=== PATIENT | female | born 1950 | race Caucasian/White ===

== ENCOUNTER 2017-05-04 22:29 | Inpatient (IN) ==
[2017-05-04] MEDS ORDERED: Ondansetron 4 MG/2 ML VIAL IVP ONE (22:44)
--- NOTE | 2017-05-04 22:56 | Emergency Department Note ---
Disposition Clinical Impression: Fall Qualifiers: Encounter type: initial encounter Qualified Code(s): W19.XXXA - Unspecified fall, initial encounter Syncope Qualifiers: Syncope type: unspecified Qualified Code(s): R55 - Syncope and collapse Head trauma Qualifiers: Encounter type: initial encounter Qualified Code(s): S09.90XA - Unspecified injury of head, initial encounter Disposition: Admitted As Inpatient Condition: Good Fall HPI - General Chief Complaint: ED Fall Stated Complaint: syncope,fall Source: patient, EMS Nursing Notes Reviewed: Yes Vital Signs Reviewed: Yes - History of Present Illness HPI Narrative: 67-year-old female past history of hypertension, hyperlipidemia, COPD with an episode of syncope. Patient states that she was walking in the bathroom, stood up, turned around and fell and hit her head. Patient denies any pain anywhere else at this time. Patient reports no episodes of palpitations, chest pain, pressure, tightness. She reports some lightheadedness. Patient denies any nausea, vomiting. She does report a mild headache. This fall was unwitnessed. - Related Data Home Medications Medication Instructions Recorded Confirmed Amitriptyline [Elavil] 10 mg PO HS 05/05/17 05/05/17 Aspirin [Lo-Dose Aspirin EC] 81 mg PO DAILY 05/05/17 05/05/17 Atorvastatin [Lipitor] 40 mg PO HS 05/05/17 05/05/17 Budesonide/Formoterol 160/4.5 2 puff IH BIDR PRN 05/05/17 05/05/17 [Symbicort 160/4.5] Calcium Carbonate [Calcium] 600 mg PO DAILY 05/05/17 05/05/17 Cholecalciferol (Vitamin D3) 3,000 unit PO DAILY 05/05/17 05/05/17 [Vitamin D] Citalopram [CeleXA] 60 mg PO DAILY 05/05/17 05/05/17 Clindamycin [Cleocin] 150 mg PO BID 05/05/17 05/05/17 Cyclobenzaprine [Flexeril] 10 mg PO TID PRN 05/05/17 05/05/17 Diphenoxylate/Atropine [Lomotil 1 each PO QID PRN 05/05/17 05/05/17 2.5 mg/0.025 mg] Esomeprazole Magnesium [Nexium] 40 mg PO BID 05/05/17 05/05/17 Fludrocortisone Acetate [Florinef] 0.1 mg PO DAILY 05/05/17 05/05/17 Fluticasone Propionate [Flovent 50 mcg IH DAILY 05/05/17 05/05/17 Diskus] Glatiramer Acetate [Copaxone] 20 mg SQ DAILY 05/05/17 05/05/17 HYDROcodone/Acet 10/325 mg [Ayden 1 tab PO Q6HR PRN 05/05/17 05/05/17 10-325 mg] LORazepam [Ativan] 1 mg PO QID PRN 05/05/17 05/05/17 Lactobacillus Combination No.8 2 tab PO DAILY 05/05/17 05/05/17 [Adult Probiotic] Methyl Salicylate 1 appl TP DAILY PRN 05/05/17 05/05/17 Metoprolol Succinate 50 mg PO DAILY 05/05/17 05/05/17 Multivitamin [Multivitamins] 1 each PO DAILY 05/05/17 05/05/17 Potassium Chloride [K-Tab ER] 20 meq PO DAILY 05/05/17 05/05/17 PrednisoLONE Acetate 1% Opth 1 drop RIGHT EYE BID 05/05/17 05/05/17 [PredFORTE 1%] Pregabalin [Lyrica] 200 mg PO BID 05/05/17 05/05/17 No.52/Iron/FA/Dha 1 each PO DAILY 05/05/17 05/05/17 [Store Host-Pnv-Dha Softgel] Promethazine [Phenergan] 25 mg PO Q6HR PRN 05/05/17 05/05/17 Spironolactone [Aldactone] 50 mg PO DAILY 05/05/17 05/05/17 Topiramate [Topamax] 25 mg PO BID 05/05/17 05/05/17 Vitamin E (Dl,Tocopheryl Acet) 800 unit PO DAILY 05/05/17 05/05/17 [Vitamin E] Zolpidem [Ambien] 5 mg PO HS PRN 05/05/17 05/05/17 hydrOXYzine pamoate [Hydroxyzine 25 mg PO HS 05/05/17 05/05/17 Pamoate] Allergies Allergy/AdvReac Type Severity Reaction Status Date / Time guaifenesin [From Entex LA] Allergy Rash Verified 07/27/15 12:38 Penicillins [PCN] Allergy Rash Verified 07/27/15 12:38 phenylephrine [From Entex LA] Allergy Rash Verified 07/27/15 12:38 phenylpropanolamine Allergy Rash Verified 07/27/15 12:38 [From Entex LA] Sulfa (Sulfonamide Allergy Rash Verified 07/27/15 12:38 Antibiotics) Verapamil [From Calan] Allergy Rash Verified 07/27/15 12:38 tzanidine Allergy Rash Uncoded 01/14/15 16:27 All systems ED: reviewed and negative except as stated. Review of Systems: As Per HPI Constitutional: Denies: fever, chills Cardiovascular: Reports: syncope. Denies: chest pain, palpitations Respiratory: Denies: cough, dyspnea Gastrointestinal: Denies: abdominal pain, nausea, vomiting Genitourinary: Denies: urgency, dysuria, frequency Neurological: Reports: headache. Denies: weakness, numbness, paresthesias Fall PMH - Past Medical History Medical history: Reports: COPD, hyperlipidemia, hypertension, other Surgical history: Reports: non-contributory - Social History Smoking Status: Never smoker Alcohol use: Reports: none Drug use: Reports: none Physical Exam CONSTITUTIONAL: Alert and oriented X3, well-nourished, appears to be mildly uncomfortable. HEAD: Normocephalic; atraumatic. EYES: PERRL, no scleral icterus. NOSE: The nose is normal in appearance without rhinorrhea RESP: Normal chest excursion with respiration; breath sounds clear and equal bilaterally; no wheezes, rhonchi, or rales CARD: Regular rhythm, without murmurs, rub or gallop ABD: Non-distended; non-tender, soft,without rigidity, rebound or guarding SKIN: Normal for age and race; warm and dry; no apparent lesions - General Limitations: no limitations General appearance: alert Course Vital Signs Temperature 97.7 F 05/04/17 22:31 Pulse Rate 72 05/04/17 22:31 Respiratory Rate 18 05/04/17 22:31 Blood Pressure 190/118 05/04/17 22:31 O2 Sat by Pulse Oximetry 95 05/04/17 22:31 Temperature 97.8 F 05/05/17 02:36 Pulse Rate 78 05/05/17 02:36 Respiratory Rate 18 05/05/17 02:36 Blood Pressure 177/100 05/05/17 02:36 O2 Sat by Pulse Oximetry 95 05/05/17 02:36 Oxygen Delivery Oxygen Delivery Room Air Fall - MDM Narrative Medical decision making narrative: This 67-year-old female presents to emergency department after having an episode of syncope at home. We obtained CT scan of the head and neck and this did not reveal any acute abnormality. Chest x-ray was also normal. EKG did not reveal any ischemic changes. Troponin was negative. Urinalysis did not reveal any evidence of urinary tract infection. CBC did not reveal any evidence of leukocytosis or anemia. At this time, I think that most of the patient's symptoms may be secondary to the head trauma as she does have a right posterior scalp hematoma. Patient wanted to be admitted to the hospital. At this time, I think this is a reasonable plan as the patient had a syncopal episode at home and do not want her being a further risk of injury by going home. Patient was given analgesia for her headache. I discussed this plan of admission with the hospitalist and he agreed to accept her. Patient was hemodynamically stable and not in any acute distress at time of admission to the hospital. Chest X-Ray 05/04/17 22:43 IMPRESSION: No acute abnormality detected. D/ / Bossman Kingston MD / Bossman Kingston MD Interpreting Provider: Bossman Kingston MD Head CT 05/04/17 22:43 IMPRESSION: No acute intracranial abnormality. Right posterior scalp hematoma. D/ / Lamin Burton MD / Lamin Burton MD Interpreting Provider: Lamin Burton MD Cervical Spine CT 05/04/17 22:44 IMPRESSION: Degenerative changes as above with no evidence of an acute injury. D/ / Lamin Burton MD / Lamin Burton MD Interpreting Provider: Lamin Burton MD Vital Signs Temperature 97.7 F 05/04/17 22:31 Pulse Rate 72 05/04/17 22:31 Respiratory Rate 18 05/04/17 22:31 Blood Pressure 190/118 05/04/17 22:31 O2 Sat by Pulse Oximetry 95 05/04/17 22:31 Temperature 97.8 F 05/05/17 02:36 Pulse Rate 78 05/05/17 02:36 Respiratory Rate 18 05/05/17 02:36 Blood Pressure 177/100 05/05/17 02:36 O2 Sat by Pulse Oximetry 95 05/05/17 02:36 Oxygen Delivery Oxygen Delivery Room Air - Lab Data Result diagrams: 05/04/17 22:48 05/04/17 22:48 Lab Results 05/04/17 05/04/17 05/04/17 Range/Units 22:48 22:48 22:48 WBC 5.0 (4.3-11.1) K/mcL RBC 4.28 (3.82-4.97) M/mcL Hgb 12.2 (11.5-15.4) g/dL Hct 37.2 (35.3-44.9) % MCV 86.9 (83.0-100.0) fL MCH 28.5 (28.0-33.3) pg MCHC 32.8 (31.6-35.5) g/dL RDW 13.2 (11.5-14.5) % Plt Count 178 (140-400) K/mcL MPV 11.3 (9.4-12.4) fL Immature Gran % 1.2 (0-4) % Seg Neutrophils % 52.2 % Lymphocytes % 27.4 % Monocytes % 11.5 % Eosinophils % 6.9 % Basophils % 0.8 % Neutrophils # 2.6 (1.6-8.9) K/mcL Lymphocytes # 1.4 (0.6-4.6) K/mcL Monocytes # 0.6 (0.0-1.3) K/mcL Eosinophils # 0.4 (0.0-0.6) K/mcL Basophils # 0.0 (0.0-0.2) K/mcL PT 10.9 (9.4-12.1) Seconds INR 1.0 APTT 29.3 (26.0-36.0) Seconds Sodium 134 L (136-145) mEq/L Potassium 4.6 H (3.5-4.5) mEq/L Chloride 99 (98-109) mEq/L Carbon Dioxide 20 (19-29) mEq/L BUN 15 (7-20) mg/dL Creatinine 1.02 (0.57-1.11) mg/dL Est GFR ( Amer) > 60 (> 60) Est GFR (Non-Af Amer) 54 L (> 60) BUN/Creatinine Ratio 15 (6-26) Glucose 158 H (70-99) mg/dL Calculated Osmolality 282 (280-300) Lactic Acid (0.5-2.2) mmol/L Calcium 9.0 (8.6-10.8) mg/dL Total Bilirubin 1.0 (0.2-1.2) mg/dL Direct Bilirubin 0.5 (0.0-0.5) mg/dL Indirect Bilirubin 0.5 (0.0-1.2) mg/dL AST 44 H (5-34) Units/L ALT 59 H (0-55) Units/L Alkaline Phosphatase 201 H (38-126) Units/L Troponin I (0-0.03) ng/mL B-Natriuretic Peptide (0-100) pg/mL Serum Total Protein 7.3 (6.0-8.3) g/dL Albumin 3.1 L (3.5-5.0) g/dL Globulin 4.2 H (2.4-3.5) g/dL Albumin/Globulin Ratio 0.7 L (1.1-2.2) TSH 1.503 (0.350-4.840) mcIU/mL Urine Color (Yellow) Urine Clarity (Clear) Urine pH (5.0-8.0) pH Units Ur Specific [place] (1.010-1.025) Urine Protein (Neg-Trace) mg/dL Urine Glucose (UA) (Normal) mg/dL Urine Ketones (Negative) mg/dL Urine Blood (Negative) Urine Nitrite (Negative) Urine Bilirubin (Negative) Urine Urobilinogen (Normal) mg/dL Ur Leukocyte Esterase (Negative) Ur Culture Indicated? (NO) 05/04/17 05/04/17 05/04/17 Range/Units 22:48 22:48 22:48 WBC (4.3-11.1) K/mcL RBC (3.82-4.97) M/mcL Hgb (11.5-15.4) g/dL Hct (35.3-44.9) % MCV (83.0-100.0) fL MCH (28.0-33.3) pg MCHC (31.6-35.5) g/dL RDW (11.5-14.5) % Plt Count (140-400) K/mcL MPV (9.4-12.4) fL Immature Gran % (0-4) % Seg Neutrophils % % Lymphocytes % % Monocytes % % Eosinophils % % Basophils % % Neutrophils # (1.6-8.9) K/mcL Lymphocytes # (0.6-4.6) K/mcL Monocytes # (0.0-1.3) K/mcL Eosinophils # (0.0-0.6) K/mcL Basophils # (0.0-0.2) K/mcL PT (9.4-12.1) Seconds INR APTT (26.0-36.0) Seconds Sodium (136-145) mEq/L Potassium (3.5-4.5) mEq/L Chloride (98-109) mEq/L Carbon Dioxide (19-29) mEq/L BUN (7-20) mg/dL Creatinine (0.57-1.11) mg/dL Est GFR ( Amer) (> 60) Est GFR (Non-Af Amer) (> 60) BUN/Creatinine Ratio (6-26) Glucose (70-99) mg/dL Calculated Osmolality (280-300) Lactic Acid 1.1 (0.5-2.2) mmol/L Calcium (8.6-10.8) mg/dL Total Bilirubin (0.2-1.2) mg/dL Direct Bilirubin (0.0-0.5) mg/dL Indirect Bilirubin (0.0-1.2) mg/dL AST (5-34) Units/L ALT (0-55) Units/L Alkaline Phosphatase (38-126) Units/L Troponin I 0.00 (0-0.03) ng/mL B-Natriuretic Peptide 166 H (0-100) pg/mL Serum Total Protein (6.0-8.3) g/dL Albumin (3.5-5.0) g/dL Globulin (2.4-3.5) g/dL Albumin/Globulin Ratio (1.1-2.2) TSH (0.350-4.840) mcIU/mL Urine Color (Yellow) Urine Clarity (Clear) Urine pH (5.0-8.0) pH Units Ur Specific [place] (1.010-1.025) Urine Protein (Neg-Trace) mg/dL Urine Glucose (UA) (Normal) mg/dL Urine Ketones (Negative) mg/dL Urine Blood (Negative) Urine Nitrite (Negative) Urine Bilirubin (Negative) Urine Urobilinogen (Normal) mg/dL Ur Leukocyte Esterase (Negative) Ur Culture Indicated? (NO) 05/04/17 Range/Units 23:23 WBC (4.3-11.1) K/mcL RBC (3.82-4.97) M/mcL Hgb (11.5-15.4) g/dL Hct (35.3-44.9) % MCV (83.0-100.0) fL MCH (28.0-33.3) pg MCHC (31.6-35.5) g/dL RDW (11.5-14.5) % Plt Count (140-400) K/mcL MPV (9.4-12.4) fL Immature Gran % (0-4) % Seg Neutrophils % % Lymphocytes % % Monocytes % % Eosinophils % % Basophils % % Neutrophils # (1.6-8.9) K/mcL Lymphocytes # (0.6-4.6) K/mcL Monocytes # (0.0-1.3) K/mcL Eosinophils # (0.0-0.6) K/mcL Basophils # (0.0-0.2) K/mcL PT (9.4-12.1) Seconds INR APTT (26.0-36.0) Seconds Sodium (136-145) mEq/L Potassium (3.5-4.5) mEq/L Chloride (98-109) mEq/L Carbon Dioxide (19-29) mEq/L BUN (7-20) mg/dL Creatinine (0.57-1.11) mg/dL Est GFR ( Amer) (> 60) Est GFR (Non-Af Amer) (> 60) BUN/Creatinine Ratio (6-26) Glucose (70-99) mg/dL Calculated Osmolality (280-300) Lactic Acid (0.5-2.2) mmol/L Calcium (8.6-10.8) mg/dL Total Bilirubin (0.2-1.2) mg/dL Direct Bilirubin (0.0-0.5) mg/dL Indirect Bilirubin (0.0-1.2) mg/dL AST (5-34) Units/L ALT (0-55) Units/L Alkaline Phosphatase (38-126) Units/L Troponin I (0-0.03) ng/mL B-Natriuretic Peptide (0-100) pg/mL Serum Total Protein (6.0-8.3) g/dL Albumin (3.5-5.0) g/dL Globulin (2.4-3.5) g/dL Albumin/Globulin Ratio (1.1-2.2) TSH (0.350-4.840) mcIU/mL Urine Color Yellow (Yellow) Urine Clarity Clear (Clear) Urine pH 6.0 (5.0-8.0) pH Units Ur Specific [place] 1.010 (1.010-1.025) Urine Protein Negative (Neg-Trace) mg/dL Urine Glucose (UA) Normal (Normal) mg/dL Urine Ketones Negative (Negative) mg/dL Urine Blood Negative (Negative) Urine Nitrite Negative (Negative) Urine Bilirubin Negative (Negative) Urine Urobilinogen Normal (Normal) mg/dL Ur Leukocyte Esterase Negative (Negative) Ur Culture Indicated? NO (NO) - EKG Data EKG attestation: Yes I reviewed and interpreted this EKG. EKG results narrative: 22:56 Ventricle rate 6 bpm, TN 184 ms, QS baptism 80 ms, QT 371 ms, QTC 414 ms, no masses. Sinus rhythm with a ventricular rate of 86 bpm. There is no evidence of any ischemic ST changes noted on this electrocardiogram. This is compared to previous study performed on January 21, 2014. Attestation Statement - Attestation Attestation: I, Stevan Akhtar MD, personally evaluated this patient and discussed their management with the resident physician. I reviewed the resident's note and agree with the documented findings, medical decision making, and plan of care. 67-year-old female presented to the emergency department for a syncopal episode with a fall. Patient states she became dizzy and lightheaded and developed tunnel vision and then just fell into the bathtub. She does not remember tripping over anything. She did hit her head. She complains of headache and some pain in her neck. No other significant injuries from the fall. On examination patient is a well-developed obese elderly female in no acute distress. She is alert and oriented 3. There is no cyanosis or diaphoresis. Head is atraumatic. Neck is supple with some mild diffuse tenderness. No tenderness directly over the cervical spine and no palpable bony step-off. Chest is nontender to palpation. Breath sounds are clear and equal bilaterally. Heart regular rate and rhythm. Abdomen is soft and nontender with normal bowel sounds. No gross focal neurological deficits. Labs reviewed. Chest x-ray negative. CT of the head and cervical spine negative. EKG shows a normal sinus rhythm with no acute changes or arrhythmia or ectopy. The hospitalist, Dr. Griffiths, was consulted and accepted admission of the patient.
[2017-05-04 22:59] LABS: Basophils % 0.8 %; Eosinophils # 0.4 K/mcL (0.0-0.6); Eosinophils % 6.9 %; Hematocrit 37.2 % (35.3-44.9); Hemoglobin 12.2 g/dL (11.5-15.4); Immature Granulocytes % 1.2 % (0-4); Lymphocytes # 1.4 K/mcL (0.6-4.6); Lymphocytes % 27.4 %; Mean Corpuscular HGB Conc 32.8 g/dL (31.6-35.5); Mean Corpuscular Hemoglobin 28.5 pg (28.0-33.3); Mean Corpuscular Volume 86.9 fL (83.0-100.0); Mean Platelet Volume 11.3 fL (9.4-12.4); Monocytes # 0.6 K/mcL (0.0-1.3); Monocytes % 11.5 %; Neutrophils # 2.6 K/mcL (1.6-8.9); Platelet Count 178 K/mcL (140-400); Red Blood Count 4.28 M/mcL (3.82-4.97); Red Cell Distribution Width 13.2 % (11.5-14.5); Segmented Neutrophils % 52.2 %
[2017-05-04 23:05] LABS: Prothrombin Time 10.9 Seconds (9.4-12.1)
[2017-05-04 23:07] LABS: Activated Partial Thrombo Time 29.3 Seconds (26.0-36.0)
[2017-05-04 23:12] LABS: Alanine Aminotransferase 59 Units/L (0-55); Albumin 3.1 g/dL (3.5-5.0); Albumin/Globulin Ratio 0.7 (1.1-2.2); Alkaline Phosphatase 201 Units/L (38-126); Aspartate Amino Transferase 44 Units/L (5-34); BUN/Creatinine Ratio 15 (6-26); Bilirubin,Direct 0.5 mg/dL (0.0-0.5); Bilirubin,Indirect 0.5 mg/dL (0.0-1.2); Blood Urea Nitrogen 15 mg/dL (7-20); Carbon Dioxide 20 mEq/L (19-29); Chloride 99 mEq/L (98-109); Globulin 4.2 g/dL (2.4-3.5); Glucose 158 mg/dL (70-99); Osmolality,Calculated 282 (280-300); Sodium 134 mEq/L (136-145); Total Protein 7.3 g/dL (6.0-8.3); eGFR For African Americans > 60 (> 60); eGFR For Non-African Americans 54 (> 60)
[2017-05-04 23:13] LABS: Potassium 4.6 mEq/L (3.5-4.5)
[2017-05-04 23:32] LABS: Thyroid Stimulating Hormone 1.503 mcIU/mL (0.350-4.840)
[2017-05-04 23:35] LABS: Bilirubin,Urine Negative (Negative); Blood,Urine Negative (Negative); Clarity,Urine Clear (Clear); Color,Urine Yellow (Yellow); Glucose,Urine (UA) Normal (Normal); Ketones,Urine Negative (Negative); Leukocyte Esterase,Urine Negative (Negative); Nitrite,Urine Negative (Negative); Protein,Urine Negative (Neg-Trace); Urobilinogen,Urine Normal (Normal)
[2017-05-05] MEDS ORDERED: *HR* HYDROcodone/Acet 10/325 mg TABLET PO ONE (01:45)
[2017-05-05] MEDS ORDERED: Budesonide/Formoterol 160/4.5 MDI IH PRN (04:22)
[2017-05-05] MEDS ORDERED: Acetaminophen 325 MG TABLET PO PRN (04:27)
[2017-05-05] MEDS ORDERED: Naloxone 0.4 MG/ML INJ IVP PRN (04:27)
--- NOTE | 2017-05-05 04:35 | Internal Med History&Physical ---
Date of Encounter: 05/05/17 Time of Encounter: 04:15 Assessment and Plan (1) Syncope Current visit: Yes Status: Acute Syncope, unclear etiology - with injury to the back of the head Continue Aspirin, Lipitor, IV fluids, supportive care CT head - no acute intracranial abnormality Chest x-ray - no acute process CT cervical spine - no acute fracture, chronic degenerative changes EKG - sinus rhythm with no acute ST-T changes Troponin - 0.00 BNP - 166 Cardiac telemetry, pulse ox, Labs in a.m., monitor closely Qualifiers: Syncope type: unspecified Qualified Code(s): R55 - Syncope and collapse (2) Multiple sclerosis Current visit: Yes Status: Chronic Multiple sclerosis, stable - no flareup Continue home dose of Copaxone (3) Essential hypertension Current visit: Yes Status: Chronic Essential hypertension, uncontrolled, monitor Continue home dose of Toprol-XL, Aldactone Unclear as to why patient is on Florinef (4) COPD (chronic obstructive pulmonary disease) Current visit: Yes Status: Chronic COPD, stable - not an exacerbation Continue Symbicort, O2 via NC Qualifiers: COPD type: unspecified COPD Qualified Code(s): J44.9 - Chronic obstructive pulmonary disease, unspecified (5) Depression Current visit: Yes Status: Chronic Qualifiers: Depression Type: major depressive disorder Major depression recurrence: recurrent Active/Remission status: currently active Psychotic features: without psychotic features Qualified Code(s): F33.2 - Major depressive disorder, recurrent severe without psychotic features (6) DVT prophylaxis Current visit: Yes Status: Acute Heparin subcutaneous Internal Medicine - H&P: HPI Chief complaint: Syncope Admitted From: Emergency Dept Plans for Post Hospital Care: Home History of present illness: Ms. Aranda is a 67 year old female with past medical history of COPD, hyperlipidemia, hypertension, depression, anxiety, rheumatoid arthritis and multiple sclerosis. Patient presents to the ED for syncope and injury to head. Examined in the room. Patient is awake and alert. Not in any distress. Able to provide all history. No family members at bedside. Patient states around 9 PM this evening, she had an episode of syncope. Patient states she was in the bathroom and she felt dizzy and lightheaded. She seems lost her balance and fell into the bathtub. Patient did injure the back of her head. She does have a posterior scalp hematoma. Patient is unclear as to how she fell. She is not sure if she tripped or if she just passed out. She denies chest pain or shortness of breath. Denies palpitations or abdominal pain or vomiting or diarrhea. No fever. Patient states she was in the bathtub for a few minutes and struggle to herself out. Patient then decided to come to the ED. At this time patient's only complaint is a headache, which she attributes to the fall. No aggravating or alleviating factors. No other associated symptoms. No other acute complaints. Initial workup in the ED is negative. CT of the head is negative for any acute intracranial abnormality, there is a right posterior scalp hematoma. Chest x- ray and CT of the cervical spine are both negative. Patient will need echocardiogram and carotid Doppler. Patient has been explained about her condition and plan of care in detail. She understood and agreed. No unanswered questions. CODE STATUS full code. Past Med Surg Social Fam HX - Past Medical History Medical history: arthritis, COPD, hyperlipidemia, hypertension, RA, other - Past Surgical History Surgical History: appendectomy, hysterectomy - Social History Smoking Status: Never smoker Smokeless Tobacco Status: No Alcohol use: none Drug use: none - Family History Mother Age: 91 Living Status: Still Living Father Living Status: Age at : 72 Cause of : cancer, heart trouble Hx Family Cardiac Disorders: Yes Hx Family Respiratory Disorders: Yes Hx Family Cancer: Yes Internal Medicine - H&P: Meds Amitriptyline [Elavil] 10 mg PO HS 05/05/17 [History] Aspirin [Lo-Dose Aspirin EC] 81 mg PO DAILY 05/05/17 [History] Atorvastatin [Lipitor] 40 mg PO HS 05/05/17 [History] Budesonide/Formoterol 160/4.5 [Symbicort 160/4.5] 2 puff IH BIDR PRN 05/05/17 [ History] Calcium Carbonate [Calcium] 600 mg PO DAILY 05/05/17 [History] Cholecalciferol (Vitamin D3) [Vitamin D] 3,000 unit PO DAILY 05/05/17 [History] Citalopram [CeleXA] 60 mg PO DAILY 05/05/17 [History] Clindamycin [Cleocin] 150 mg PO BID 05/05/17 [History] Cyclobenzaprine [Flexeril] 10 mg PO TID PRN 05/05/17 [History] Diphenoxylate/Atropine [Lomotil 2.5 mg/0.025 mg] 1 each PO QID PRN 05/05/17 [ History] Esomeprazole Magnesium [Nexium] 40 mg PO BID 05/05/17 [History] Fludrocortisone Acetate [Florinef] 0.1 mg PO DAILY 05/05/17 [History] Fluticasone Propionate [Flovent Diskus] 50 mcg IH DAILY 05/05/17 [History] Glatiramer Acetate [Copaxone] 20 mg SQ DAILY 05/05/17 [History] HYDROcodone/Acet 10/325 mg [Beecher 10-325 mg] 1 tab PO Q6HR PRN 05/05/17 [History ] LORazepam [Ativan] 1 mg PO QID PRN 05/05/17 [History] Lactobacillus Combination No.8 [Adult Probiotic] 2 tab PO DAILY 05/05/17 [ History] Methyl Salicylate 1 appl TP DAILY PRN 05/05/17 [History] Metoprolol Succinate 50 mg PO DAILY 05/05/17 [History] Multivitamin [Multivitamins] 1 each PO DAILY 05/05/17 [History] Potassium Chloride [K-Tab ER] 20 meq PO DAILY 05/05/17 [History] PrednisoLONE Acetate 1% Opth [PredFORTE 1%] 1 drop RIGHT EYE BID 05/05/17 [ History] Pregabalin [Lyrica] 200 mg PO BID 05/05/17 [History] No.52/Iron/FA/Dha [Processing Clerk-Pnv-Dha Softgel] 1 each PO DAILY 05/05/17 [ History] Promethazine [Phenergan] 25 mg PO Q6HR PRN 05/05/17 [History] Spironolactone [Aldactone] 50 mg PO DAILY 05/05/17 [History] Topiramate [Topamax] 25 mg PO BID 05/05/17 [History] Vitamin E (Dl,Tocopheryl Acet) [Vitamin E] 800 unit PO DAILY 05/05/17 [History] Zolpidem [Ambien] 5 mg PO HS PRN 05/05/17 [History] hydrOXYzine pamoate [Hydroxyzine Pamoate] 25 mg PO HS 05/05/17 [History] 3 Allergy/AdvReac Type Severity Reaction Status Date / Time guaifenesin [From Entex LA] Allergy Rash Verified 07/27/15 12:38 Penicillins [PCN] Allergy Rash Verified 07/27/15 12:38 phenylephrine [From Entex LA] Allergy Rash Verified 07/27/15 12:38 phenylpropanolamine Allergy Rash Verified 07/27/15 12:38 [From Entex LA] Sulfa (Sulfonamide Allergy Rash Verified 07/27/15 12:38 Antibiotics) Verapamil [From Calan] Allergy Rash Verified 07/27/15 12:38 tzanidine Allergy Rash Uncoded 01/14/15 16:27 All Systems PM: A 10-system review of systems was performed and is negative for pertinent findings except as documented above in the HPI. - Constitutional Constitutional: fatigue, weakness, no fever(s) - EENT Eyes: no blurry vision - Cardiovascular Cardiovascular ROS IM: lightheadedness, syncope, no chest pain, no diaphoresis, no dyspnea, no dyspnea on exertion, no edema, no orthopnea, no palpitations - Respiratory Respiratory: no cough, no dyspnea, no dyspnea on exertion, no wheezing, no chest congestion - Gastrointestinal Gastrointestinal: no abdominal pain, no bloating, no cramping, no diarrhea, no hematemesis, no hematochezia, no nausea, no vomiting - Genitourinary Genitourinary: no dysuria - Neurological Neurological ROS: dizziness, no abnormal gait, no abnormal speech, no confusion , no focal weakness, no loss of vision, no numbness, no tingling - Constitutional Vitals: Temp Pulse Resp BP Pulse Ox 97.8 F 78 18 177/100 95 05/05/17 02:36 05/05/17 02:36 05/05/17 02:36 05/05/17 02:36 05/05/17 02:36 General appearance: Present: cooperative, A&O X 3, morbidly obese, pleasant, no acute distress, answers questions appropriately - Head Additional comments: Posterior scalp hematoma secondary to fall - Eye Eye exam: Present: EOMI - ENT ENT exam: Present: mucous membranes moist - Respiratory Respiratory exam: Present: CTAB. Absent: accessory muscle use, rales, respiratory distress, rhonchi, wheezes, tachypnea - Cardiovascular Cardiovascular exam: Present: RRR, +S1, +S2 - GI/Abdominal GI/Abdominal exam: Present: soft (Obese). Absent: distended, firm, guarding, tenderness - Extremities Exam Extremities exam: Present: pedal edema (Bilateral 1+), radial pulses palpable and symmetrical. Absent: calf tenderness, cyanotic - Neurological Exam Neurological exam: Present: alert, CN II-XII intact, oriented X3, no focal deficits. Absent: facial droop, speech deficit Internal Med - H&P Results - Labs CBC & Chem 7: 05/05/17 04:57 05/04/17 22:48
[2017-05-05] MEDS ORDERED: Pregabalin 50 MG CAPSULE PO ONE (04:36)
[2017-05-05 05:08] LABS: Basophils # 0.1 K/mcL (0.0-0.2); Basophils % 1.1 %; Eosinophils # 0.3 K/mcL (0.0-0.6); Hematocrit 36.2 % (35.3-44.9); Hemoglobin 12.3 g/dL (11.5-15.4); Immature Granulocytes % 0.8 % (0-4); Lymphocytes % 29.9 %; Mean Corpuscular Hemoglobin 29.4 pg (28.0-33.3); Mean Corpuscular Volume 86.4 fL (83.0-100.0); Mean Platelet Volume 10.9 fL (9.4-12.4); Monocytes # 0.9 K/mcL (0.0-1.3); Neutrophils # 3.3 K/mcL (1.6-8.9); Platelet Count 188 K/mcL (140-400); Red Blood Count 4.19 M/mcL (3.82-4.97); Red Cell Distribution Width 13.1 % (11.5-14.5); Segmented Neutrophils % 49.2 %
[2017-05-05 05:24] LABS: BUN/Creatinine Ratio 16 (6-26); Blood Urea Nitrogen 13 mg/dL (7-20); Calcium 8.9 mg/dL (8.6-10.8); Carbon Dioxide 20 mEq/L (19-29); Chloride 102 mEq/L (98-109); Glucose 121 mg/dL (70-99); Magnesium 1.2 mg/dL (1.6-2.6); Osmolality,Calculated 281 (280-300); Potassium 4.6 mEq/L (3.5-4.5); Sodium 135 mEq/L (136-145); eGFR For African Americans > 60 (> 60); eGFR For Non-African Americans > 60 (> 60)
[2017-05-05] MEDS: 0.9 % Sodium Chloride 1,000 ML IVC SCH (05:28)
[2017-05-05] MEDS: *HR* Heparin 5,000 UNIT/ML VIAL SQ SCH ×3 (05:46→20:43)
[2017-05-05] MEDS: Cholecalciferol (D-3) 1,000 UNIT TABLET PO SCH (08:29)
[2017-05-05] MEDS: Spironolactone 25 MG TABLET PO SCH (08:29)
[2017-05-05] MEDS: Multivit/Ca/Min/Fe/FA 1 TAB TABLET PO SCH (08:29)
[2017-05-05] MEDS: Topiramate 25 MG TABLET PO SCH ×2 (08:31→20:43)
[2017-05-05] MEDS: Prenatal Vit/FA 1 EACH TABLET PO SCH (08:31)
[2017-05-05] MEDS: Lactobacillus 1 EACH CAP.SPRINK PO SCH (08:31)
[2017-05-05] MEDS: Metoprolol XL (24 HR) Succ 50 MG TAB.ER.24H PO SCH (08:31)
[2017-05-05] MEDS: Aspirin Enteric Coated 81 MG Tablet PO SCH (08:31)
[2017-05-05] MEDS: GLATIRAMER ACETATE 20 MG SQ SCH (08:34)
[2017-05-05] MEDS: PrednisoLONE Acetate 1% Opth 5 ML BOTTLE RIGHT EYE SCH ×2 (08:34→20:44)
[2017-05-05] MEDS: (Flovent Diskus] 50 MCG) IH SCH (08:34)
[2017-05-05] MEDS ORDERED: Budesonide/Formoterol 160/4.5 MDI IH SCH (10:00)
[2017-05-05] MEDS: Ondansetron 4 MG/2 ML VIAL IVP PRN ×2 (13:09→23:13)
[2017-05-05] MEDS ORDERED: *HR* LORazepam 1 MG TABLET PO PRN (15:06)
[2017-05-05] MEDS: *HR* Morphine 2 MG/ML SYRINGE IVP PRN (15:28)
[2017-05-05] MEDS: Fluticasone Propionate Nasal 50 MCG/SPRAY BOTTLE NS SCH (15:29)
--- NOTE | 2017-05-05 19:23 | Internal Med Progress Note ---
Date of Encounter: 05/05/17 Time of Encounter: 08:25 - Assessment and plan (1) Morbid obesity Current Visit: Yes Status: Acute Assessment and plan: Patient with BMI greater than 45. Chronic. Encouraged lifestyle changes. (2) Fall Current Visit: Yes Status: Acute Assessment and plan: She reports fall at home. She is unsure if it is a mechanical fall or due to syncope. She states she was walking in her bathroom and fell backwards and her top striking her back on the edge of the tub hitting her head on the wall. She does have a small hematoma left occiput. There is no bleeding. She denies any loss of consciousness. Head CT is negative, C-spine negative for any acute injuries. Echocardiogram shows preserved EF with mild AR, mild MR, mild TR, all wall segments with normal motion. Patient states that sometimes when she is out about she uses a cane. She is not using any assistive devices in the home. Physical therapy and occupational therapy consultations pending. Chest X-Ray 05/04/17 22:43 IMPRESSION: No acute abnormality detected. D/ / Bossman Kingston MD / Bossman Kingston MD Interpreting Provider: Bossman Kingston MD Head CT 05/04/17 22:43 IMPRESSION: No acute intracranial abnormality. Right posterior scalp hematoma. D/ / Lamin Burton MD / Lamin Burton MD Interpreting Provider: Lamin Burton MD Cervical Spine CT 05/04/17 22:44 IMPRESSION: Degenerative changes as above with no evidence of an acute injury. D/ / Lamin Burton MD / Lamin Burton MD Interpreting Provider: Lamin Burton MD Echocardiogram 05/05/17 04:26 Impressions: LVEF 60%. Mild left ventricular diastolic dysfunction. Normal right ventricular structure and function. Mild aortic regurgitation. Mild mitral regurgitation. Mild tricuspid regurgitation. No pulmonary hypertension. Left Ventricular Wall Motion: Rest Echo Findings All wall segments showed normal motion. Findings: Study Quality * Technically adequate exam. ECG Findings * Normal sinus rhythm. Left Ventricle * Normal LV chamber size, wall thickness and function. * LVEF 60%. * Mild left ventricular diastolic dysfunction. Right Ventricle * Normal right ventricular structure and function. Left Atrium * Normal left atrial size. Right Atrium * Normal right atrial size. Aortic Valve * Trileaflet aortic valve. * No aortic stenosis. * Mild aortic regurgitation. Mitral Valve * Normal mitral valve structure. * No mitral stenosis. * Mild mitral regurgitation. Tricuspid Valve * Tricuspid valve not well visualized. * Mild tricuspid regurgitation. * Estimated RA pressure is 3 mmHg. * Estimated RVSP is 31 mmHg. * No pulmonary hypertension. Pulmonic Valve * Pulmonic valve is not well visualized. * No pulmonic stenosis. * No pulmonic regurgitation. Pulmonary Artery * Pulmonary artery not well visualized. Pericardium * There is no pericardial effusion present. Aorta * Normally sized aortic root. Interatrial Septum * Interatrial septum not well evaluated. IVC * Normal IVC dimensions and inspiratory collapse. Qualifiers: Encounter type: initial encounter Qualified Code(s): W19.XXXA - Unspecified fall, initial encounter (3) Syncope Current Visit: Yes Status: Acute Assessment and plan: Plan as above. Echocardiogram as above. Carotids show nonstenotic plaque bilaterally. Qualifiers: Syncope type: unspecified Qualified Code(s): R55 - Syncope and collapse (4) Head trauma Current Visit: Yes Status: Acute Assessment and plan: Plan as above. Qualifiers: Encounter type: initial encounter Qualified Code(s): S09.90XA - Unspecified injury of head, initial encounter (5) Essential hypertension Current Visit: Yes Status: Chronic Assessment and plan: Blood pressures been well controlled and the patient sitting. Continue home medications. Continue to monitor vital signs. (6) COPD (chronic obstructive pulmonary disease) Current Visit: Yes Status: Chronic Assessment and plan: No exacerbation. Lungs are clear and diminished throughout. Patient is not requiring supplement oxygen. Sats above 92%. She is not tachypneic. She denies productive cough or any cough above baseline. Continue home medications. Chest x-ray is negative. Qualifiers: COPD type: unspecified COPD Qualified Code(s): J44.9 - Chronic obstructive pulmonary disease, unspecified (7) Multiple sclerosis Current Visit: Yes Status: Chronic Assessment and plan: Patient denies flare at this time. She will continue her home dose of Glatopa. She states that she follows at the MS clinic at [facility]. (8) DVT prophylaxis Current Visit: Yes Status: Acute Assessment and plan: Heparin subcutaneous. - Time Spent With Patient less than 15 minutes - Subjective Interval history: She was seen and assessed at bedside at 8:25 AM. She is alert, awake, oriented and pleasant. She reports that she lives alone with her mother. She was walking to her restroom when she fell. She is unsure if it was a mechanical fall or due to a dysrhythmia or other problem. She states that she landed in her bathtub and was attempted to being on the wall for her mother to hear her. Her mother did not hear her and she eventually got herself out of the bathtub alone. She reports that her back is sore from hitting the edge of the bathtub. She denies any loss of consciousness and denies headache from head injury. She denies dizziness or blurred vision, chest pain or shortness of breath, she denies abdominal pain nausea or vomiting. She denies fever or chills. At the time I saw her we are waiting on further testing. Patient will stay overnight for continued monitoring and most likely be discharged in the morning. - Constitutional Vitals: Temp Pulse Resp BP Pulse Ox 98.1 F 78 16 114/72 91 05/05/17 19:11 05/05/17 19:11 05/05/17 19:11 05/05/17 19:11 05/05/17 19:11 General appearance: Present: cooperative, A&O X 3, morbidly obese, pleasant, no acute distress, answers questions appropriately - Head Head exam: Present: atraumatic, normal inspection, normocephalic - Eye Eye exam: Present: normal appearance, conjuntiva pink, sclera anicteric. Absent : periorbital swelling, periorbital tenderness - Neck Neck exam general surgery: Present: normal inspection, supple, trachea midline. Absent: lymphadenopathy, tenderness - Respiratory Respiratory exam: Present: CTAB. Absent: accessory muscle use, chest wall tenderness, prolonged expiratory phase, rales, rhonchi, wheezes - Cardiovascular Cardiovascular exam: Present: RRR, +S1, +S2. Absent: diastolic murmur, gallop, rubs, systolic murmur - GI/Abdominal GI/Abdominal exam: Present: normal bowel sounds, soft, no peritoneal signs. Absent: distended, tenderness - Extremities Exam Extremities exam: Present: normal capillary refill, normal inspection, warm, radial pulses palpable and symmetrical. Absent: calf tenderness, cyanotic, pedal edema, tenderness - Neurological Exam Neurological exam: Present: alert, oriented X3, no focal deficits. Absent: altered, facial droop, speech deficit - Skin Skin exam: Present: dry, intact, normal color, warm. Absent: rash Internal Medicine: Result - Labs CBC & Chem 7: 05/05/17 04:57 05/05/17 04:57 Labs: Cardiac Enzymes 05/05/17 Range/Units 16:12 Troponin I 0.00 (0-0.03) ng/mL - ABG Interpretation ABG results: PT/INR, D-dimer PT 10.9 Seconds (9.4-12.1) 05/04/17 22:48 Consult Discharge Plan - Plan Referrals: Owen Reyes Jr, MD [Primary Care Provider] - 05/15/17 11:00 am
[2017-05-05] MEDS: *HR* HYDROcodone/Acet 10/325 mg TABLET PO PRN (20:42)
[2017-05-05] MEDS: Pregabalin 50 MG CAPSULE PO SCH (20:43)
[2017-05-05] MEDS: hydrOXYzine pamoate 25 MG CAPSULE PO SCH (20:43)
[2017-05-06] MEDS: *HR* Morphine 2 MG/ML SYRINGE IVP PRN (03:43)
[2017-05-06 05:56] LABS: Basophils # 0.1 K/mcL (0.0-0.2); Eosinophils # 0.3 K/mcL (0.0-0.6); Eosinophils % 4.8 %; Hematocrit 34.6 % (35.3-44.9); Hemoglobin 11.2 g/dL (11.5-15.4); Immature Granulocytes % 1.7 % (0-4); Lymphocytes # 2.5 K/mcL (0.6-4.6); Lymphocytes % 41.8 %; Mean Corpuscular HGB Conc 32.4 g/dL (31.6-35.5); Mean Corpuscular Hemoglobin 28.5 pg (28.0-33.3); Mean Platelet Volume 10.8 fL (9.4-12.4); Monocytes # 0.8 K/mcL (0.0-1.3); Monocytes % 13.7 %; Neutrophils # 2.2 K/mcL (1.6-8.9); Platelet Count 173 K/mcL (140-400); Red Blood Count 3.93 M/mcL (3.82-4.97); Red Cell Distribution Width 13.3 % (11.5-14.5)
[2017-05-06 06:07] LABS: BUN/Creatinine Ratio 13 (6-26); Blood Urea Nitrogen 10 mg/dL (7-20); Calcium 8.7 mg/dL (8.6-10.8); Carbon Dioxide 26 mEq/L (19-29); Chloride 104 mEq/L (98-109); Glucose 111 mg/dL (70-99); Osmolality,Calculated 286 (280-300); Potassium 4.2 mEq/L (3.5-4.5); Sodium 138 mEq/L (136-145); eGFR For African Americans > 60 (> 60); eGFR For Non-African Americans > 60 (> 60)
[2017-05-06] MEDS: *HR* Heparin 5,000 UNIT/ML VIAL SQ SCH ×3 (06:41→21:12)
[2017-05-06] MEDS ORDERED: Ketorolac 30 MG/ML VIAL IVP ONE (08:48)
[2017-05-06] MEDS ORDERED: Ondansetron 4 MG/2 ML VIAL IVP ONE (08:48)
[2017-05-06] MEDS: 0.9 % Sodium Chloride 1,000 ML IVC SCH (09:12)
[2017-05-06] MEDS: Pregabalin 50 MG CAPSULE PO SCH ×2 (09:20→21:12)
[2017-05-06] MEDS: hydrOXYzine pamoate 25 MG CAPSULE PO SCH ×3 (09:20→21:12)
[2017-05-06] MEDS: Lactobacillus 1 EACH CAP.SPRINK PO SCH (09:21)
[2017-05-06] MEDS: Prenatal Vit/FA 1 EACH TABLET PO SCH (09:21)
[2017-05-06] MEDS: Multivit/Ca/Min/Fe/FA 1 TAB TABLET PO SCH (09:21)
[2017-05-06] MEDS: Spironolactone 25 MG TABLET PO SCH (09:21)
[2017-05-06] MEDS: Metoprolol XL (24 HR) Succ 50 MG TAB.ER.24H PO SCH (09:22)
[2017-05-06] MEDS: Topiramate 25 MG TABLET PO SCH ×2 (09:22→21:12)
[2017-05-06] MEDS: Aspirin Enteric Coated 81 MG Tablet PO SCH (09:22)
[2017-05-06] MEDS: Fluticasone Propionate Nasal 50 MCG/SPRAY BOTTLE NS SCH (09:23)
[2017-05-06] MEDS: Cholecalciferol (D-3) 1,000 UNIT TABLET PO SCH (09:23)
[2017-05-06] MEDS: (Flovent Diskus] 50 MCG) IH SCH (09:29)
[2017-05-06] MEDS: GLATIRAMER ACETATE 20 MG SQ SCH (09:29)
[2017-05-06] MEDS: PrednisoLONE Acetate 1% Opth 5 ML BOTTLE RIGHT EYE SCH ×2 (09:29→21:13)
--- NOTE | 2017-05-06 13:44 | Discharge Summary ---
Date of Encounter: 05/06/17 Time of Encounter: 08:30 - Discharge Diagnosis (1) Morbid obesity Priority: Secondary Status: Acute Comments: Patient with BMI greater than 45. Chronic. Encouraged lifestyle changes. (2) Fall Priority: Secondary Status: Acute Comments: She reports fall at home. She is unsure if it is a mechanical fall or due to syncope. She states she was walking in her bathroom and fell backwards and her top striking her back on the edge of the tub hitting her head on the wall. She does have a small hematoma left occiput. There is no bleeding. She denies any loss of consciousness. Head CT is negative, C-spine negative for any acute injuries. Echocardiogram shows preserved EF with mild AR, mild MR, mild TR, all wall segments with normal motion. Patient denies need for any assistive devices or therapy at home. Patient states that sometimes when she is out about she uses a cane. She is not using any assistive devices in the home. Chest X-Ray 05/04/17 22:43 IMPRESSION: No acute abnormality detected. D/ / Bossman Kingston MD / Bossman Kingston MD Interpreting Provider: Bossman Kingston MD Head CT 05/04/17 22:43 IMPRESSION: No acute intracranial abnormality. Right posterior scalp hematoma. D/ / Lamin Burton MD / Lamin Burton MD Interpreting Provider: Lamin Burton MD Cervical Spine CT 05/04/17 22:44 IMPRESSION: Degenerative changes as above with no evidence of an acute injury. D/ / Lamin Burton MD / Lamin Burton MD Interpreting Provider: Lamin Burton MD Echocardiogram 05/05/17 04:26 Impressions: LVEF 60%. Mild left ventricular diastolic dysfunction. Normal right ventricular structure and function. Mild aortic regurgitation. Mild mitral regurgitation. Mild tricuspid regurgitation. No pulmonary hypertension. Left Ventricular Wall Motion: Rest Echo Findings All wall segments showed normal motion. Findings: Study Quality * Technically adequate exam. ECG Findings * Normal sinus rhythm. Left Ventricle * Normal LV chamber size, wall thickness and function. * LVEF 60%. * Mild left ventricular diastolic dysfunction. Right Ventricle * Normal right ventricular structure and function. Left Atrium * Normal left atrial size. Right Atrium * Normal right atrial size. Aortic Valve * Trileaflet aortic valve. * No aortic stenosis. * Mild aortic regurgitation. Mitral Valve * Normal mitral valve structure. * No mitral stenosis. * Mild mitral regurgitation. Tricuspid Valve * Tricuspid valve not well visualized. * Mild tricuspid regurgitation. * Estimated RA pressure is 3 mmHg. * Estimated RVSP is 31 mmHg. * No pulmonary hypertension. Pulmonic Valve * Pulmonic valve is not well visualized. * No pulmonic stenosis. * No pulmonic regurgitation. Pulmonary Artery * Pulmonary artery not well visualized. Pericardium * There is no pericardial effusion present. Aorta * Normally sized aortic root. Interatrial Septum * Interatrial septum not well evaluated. IVC * Normal IVC dimensions and inspiratory collapse. Qualifiers: Encounter type: initial encounter Qualified Code(s): W19.XXXA - Unspecified fall, initial encounter (3) Syncope Priority: Primary Status: Acute Comments: Plan as above. Echocardiogram as above. Carotids show nonstenotic plaque bilaterally. Qualifiers: Syncope type: unspecified Qualified Code(s): R55 - Syncope and collapse (4) Head trauma Priority: Primary Status: Acute Comments: Plan as above. Pt reports headache since fall. Pt did not mention it to me until this a.m. It was resolved with Toradol 30mg IV, Benadryl 25mg IV, and Zofran 4mg IV. Pt states that pain is 3/10 and she feels well enough to go home. Pt will be sent home with rx for Ultram for headache prn. Qualifiers: Encounter type: initial encounter Qualified Code(s): S09.90XA - Unspecified injury of head, initial encounter (5) Essential hypertension Priority: Secondary Status: Chronic Comments: Blood pressure has been improving, systolic is now below 150. Patient will need to continue to follow with primary care for continued evaluation and monitoring and any necessary medication adjustments. (6) COPD (chronic obstructive pulmonary disease) Priority: Secondary Status: Chronic Comments: No exacerbation. Lungs are clear and diminished throughout. Patient is not requiring supplement oxygen. Sats above 92%. She is not tachypneic. She denies productive cough or any cough above baseline. Continue home medications. Chest x-ray is negative. Qualifiers: COPD type: unspecified COPD Qualified Code(s): J44.9 - Chronic obstructive pulmonary disease, unspecified (7) Multiple sclerosis Priority: Secondary Status: Chronic Comments: No acute flare at this time. She will continue home dose of medication. She follows up the MS clinic at [facility]. (8) DVT prophylaxis Priority: Secondary Status: Acute Comments: Heparin subcutaneous. - Discharge Medications Prescriptions: Tramadol HCl [Ultram] 50 mg PO BID PRN #5 tab PRN Reason: Pain Home Medications: Amitriptyline [Elavil] 10 mg PO HS 05/05/17 [History] Aspirin [Lo-Dose Aspirin EC] 81 mg PO DAILY 05/05/17 [History] Atorvastatin [Lipitor] 40 mg PO HS 05/05/17 [History] Budesonide/Formoterol 160/4.5 [Symbicort 160/4.5] 2 puff IH BIDR PRN 05/05/17 [ History] Calcium Carbonate [Calcium] 600 mg PO DAILY 05/05/17 [History] Cholecalciferol (Vitamin D3) [Vitamin D3] 3,000 unit PO DAILY 05/05/17 [History] Clindamycin [Cleocin] 150 mg PO BID 05/05/17 [History] Cyclobenzaprine [Flexeril] 10 mg PO TID PRN 05/05/17 [History] Esomeprazole Magnesium [Nexium] 40 mg PO BID 05/05/17 [History] Fludrocortisone Acetate [Florinef] 0.1 mg PO DAILY 05/05/17 [History] Glatiramer Acetate [Copaxone] 20 mg SQ DAILY 05/05/17 [History] HYDROcodone/Acet 10/325 mg [Alden 10-325 mg] 1 tab PO Q6HR PRN 05/05/17 [History ] LORazepam [Ativan] 1 mg PO QID PRN 05/05/17 [History] Lactobacillus Combination No.8 [Adult Probiotic] 2 tab PO DAILY 05/05/17 [ History] Metoprolol Succinate 50 mg PO DAILY 05/05/17 [History] PrednisoLONE Acetate 1% Opth [PredFORTE 1%] 1 drop RIGHT EYE BID 05/05/17 [ History] Pregabalin [Lyrica] 200 mg PO BID 05/05/17 [History] No.52/Iron/FA/Dha [Cert Occupational Therapy Asst-Pnv-Dha Softgel] 1 each PO DAILY 05/05/17 [ History] Promethazine [Phenergan] 25 mg PO Q6HR PRN 05/05/17 [History] Spironolactone [Aldactone] 50 mg PO DAILY 05/05/17 [History] Vitamin E (Dl,Tocopheryl Acet) [Vitamin E] 800 unit PO DAILY 05/05/17 [History] Zolpidem [Ambien] 5 mg PO HS PRN 05/05/17 [History] hydrOXYzine pamoate [Hydroxyzine Pamoate] 25 mg PO TID 05/05/17 [History] Tramadol HCl [Ultram] 50 mg PO BID PRN #5 tab 05/06/17 [Rx] Allergies/Adverse Reactions: 3 Allergy/AdvReac Type Severity Reaction Status Date / Time Penicillins [PCN] Allergy Hives Verified 05/05/17 09:25 sertraline [From Zoloft] Allergy Itching Verified 05/05/17 09:29 Sulfa (Sulfonamide Allergy Hives Verified 05/05/17 09:25 Antibiotics) guaifenesin [From Entex LA] AdvReac UNABLE TO Verified 05/05/17 09:25 URINATE phenylephrine [From Entex LA] AdvReac UNABLE TO Verified 05/05/17 09:25 URINATE phenylpropanolamine AdvReac UNABLE TO Verified 05/05/17 09:25 [From Entex LA] URINATE Verapamil [From Calan] AdvReac CAUSES Verified 05/05/17 09:25 SEIZURE tzanidine AdvReac Migraine Uncoded 05/05/17 09:25 Date of admission: 05/05/17 14:13 Primary care physician: Owen Reyes Jr, MD Discharging clinician: Shyla Nagy Anticipated date of discharge: 05/06/17 - Patient Status Disposition: Home, Self-Care Condition: Good Functional capacity at discharge: independent ambulation Overall status at discharge: patient is back to baseline - Discharge Instructions Follow Up With: Owen Reyes Jr, MD [Primary Care Provider] - 05/15/17 11:00 am Additional Instructions: Follow-up through primary care provider in the next 7-10 days for recheck. Return to normal activities as tolerated. Return to your normal diet as tolerated. Return to the emergency department as needed for any other problems or concerns or if symptoms return or worsen - Diet and Activity Activity: increase activity as tolerated, resume usual activities as tolerated Diet: advance to your usual diet Hospital course: Ms. Aranda is a 67 year old female with past medical history of MS, hypertension, COPD, depression, hypertension, morbid obesity. She presented to the emergency department after a fall. She is unsure if it was a syncopal episode or mechanical fall. She did not lose consciousness. She wound up in the bathtub and was able to get herself out after some maneuvering. She reports a headache, occipital head pain with palpation/hematoma. All testing has been negative. Patient is appropriate and stable for discharge. She will need to follow up with primary care for close monitoring of hypertension and other health problems. - Time Spent with Patient Total time spent providing and/or coordinating discharge services: Less than 30 minutes - Constitutional Vitals: Temp Pulse Resp BP Pulse Ox 98.2 F 75 15 149/91 94 05/06/17 11:32 05/06/17 11:32 05/06/17 11:32 05/06/17 11:32 05/06/17 11:32 General appearance: Present: cooperative, A&O X 3, morbidly obese, pleasant, no acute distress, answers questions appropriately - Head Head exam: Present: atraumatic, normal inspection, normocephalic - Eye Eye exam: Present: EOMI, normal appearance, PERRL, conjuntiva pink, sclera anicteric. Absent: conjunctival injection, nystagmus, periorbital swelling, periorbital tenderness Pupils: Present: normal accommodation - Neck Neck exam general surgery: Present: normal inspection, supple, trachea midline. Absent: lymphadenopathy, tenderness - Respiratory Respiratory exam: Present: CTAB. Absent: accessory muscle use, rales, respiratory distress, rhonchi, wheezes - Cardiovascular Cardiovascular exam: Present: RRR, +S1, +S2. Absent: diastolic murmur, gallop, rubs, systolic murmur - GI/Abdominal GI/Abdominal exam: Present: normal bowel sounds, soft, no peritoneal signs. Absent: distended, tenderness - Extremities Exam Extremities exam: Present: warm, radial pulses palpable and symmetrical. Absent : calf tenderness, cyanotic, pedal edema - Neurological Exam Neurological exam: Present: alert, oriented X3, no focal deficits. Absent: facial droop, speech deficit - Skin Skin exam: Present: dry, intact, normal color, warm. Absent: rash
--- NOTE | 2017-05-06 13:47 | Electrocardiograph Report ---
[address] [address] Test Date: 2017-05-04 Pat Name: Staci Aranda Department: 104 Room: 3B Gender: F Supervisor Customer Complaint Service: : 1950 Requested By: Tariq Zepeda Order Number: [id number] Reading MD: Nithya Serna Measurements Intervals [place] Rate: 86 P: 42 WV: 184 QRS: 5 QRSD: 80 T: 38 QT: 371 QTc: 414 Interpretive Statements SINUS RHYTHM Electronically Signed On 05-06-2017 13:45:53 EST by Nithya Serna
[2017-05-06] MEDS: *HR* HYDROcodone/Acet 10/325 mg TABLET PO PRN (17:52)
[2017-05-06] MEDS: Ondansetron 4 MG/2 ML VIAL IVP PRN (17:52)
[2017-05-06] MEDS: Budesonide/Formoterol 160/4.5 MDI IH SCH (20:15)
[2017-05-07] MEDS: *HR* HYDROcodone/Acet 10/325 mg TABLET PO PRN ×4 (00:03→20:09)
[2017-05-07] MEDS: *HR* Heparin 5,000 UNIT/ML VIAL SQ SCH ×3 (05:59→22:45)
[2017-05-07] MEDS: Budesonide/Formoterol 160/4.5 MDI IH SCH ×2 (07:58→19:37)
[2017-05-07] MEDS: Topiramate 25 MG TABLET PO SCH ×2 (08:27→20:09)
[2017-05-07] MEDS: hydrOXYzine pamoate 25 MG CAPSULE PO SCH ×3 (08:27→20:09)
[2017-05-07] MEDS: Prenatal Vit/FA 1 EACH TABLET PO SCH (08:28)
[2017-05-07] MEDS: Aspirin Enteric Coated 81 MG Tablet PO SCH (08:28)
[2017-05-07] MEDS: Multivit/Ca/Min/Fe/FA 1 TAB TABLET PO SCH (08:28)
[2017-05-07] MEDS: Lactobacillus 1 EACH CAP.SPRINK PO SCH (08:28)
[2017-05-07] MEDS: Pregabalin 50 MG CAPSULE PO SCH ×2 (08:28→20:09)
[2017-05-07] MEDS: Spironolactone 25 MG TABLET PO SCH (08:28)
[2017-05-07] MEDS: Cholecalciferol (D-3) 1,000 UNIT TABLET PO SCH (08:28)
[2017-05-07] MEDS: Metoprolol XL (24 HR) Succ 50 MG TAB.ER.24H PO SCH (08:28)
[2017-05-07] MEDS: Fluticasone Propionate Nasal 50 MCG/SPRAY BOTTLE NS SCH (08:29)
[2017-05-07] MEDS: GLATIRAMER ACETATE 20 MG SQ SCH (10:20)
[2017-05-07] MEDS: PrednisoLONE Acetate 1% Opth 5 ML BOTTLE RIGHT EYE SCH ×2 (10:20→20:08)
[2017-05-07] MEDS: (Flovent Diskus] 50 MCG) IH SCH (10:20)
--- NOTE | 2017-05-07 11:08 | Internal Med Progress Note ---
Date of Encounter: 05/07/17 Time of Encounter: 08:45 - Assessment and plan (1) Morbid obesity Current Visit: Yes Status: Acute Assessment and plan: Patient with BMI greater than 45. Chronic. Encouraged lifestyle changes. Encourage reduced calorie diet and increased activity. (2) Fall Current Visit: Yes Status: Acute Assessment and plan: She reports fall at home. She is unsure if it is a mechanical fall or due to syncope. She states she was walking in her bathroom and fell backwards and her top striking her back on the edge of the tub hitting her head on the wall. She does have a small hematoma left occiput. There is no bleeding. She denies any loss of consciousness. Head CT is negative, C-spine negative for any acute injuries. Echocardiogram shows preserved EF with mild AR, mild MR, mild TR, all wall segments with normal motion. Patient states that sometimes when she is out about she uses a cane. She is not using any assistive devices in the home. Physical therapy and occupational therapy consultations pending. Pt initially denied need for evaluation and wanted to be discharged, stating that she did well at home with her cane. Pt was to be discharged and told primary RN that her daughter wanted her to be evaluated for PT/OT needs prior to discharge. No PT/OT services on the weekend, will have to wait until tomorrow. Chest X-Ray 05/04/17 22:43 IMPRESSION: No acute abnormality detected. D/ / Bossman Kingston MD / Bossman Kingston MD Interpreting Provider: Bossman Kingston MD Head CT 05/04/17 22:43 IMPRESSION: No acute intracranial abnormality. Right posterior scalp hematoma. D/ / Lamin Burton MD / Lamin Burton MD Interpreting Provider: Lamin Burton MD Cervical Spine CT 05/04/17 22:44 IMPRESSION: Degenerative changes as above with no evidence of an acute injury. D/ / Lamin Burton MD / Lamin Burton MD Interpreting Provider: Lamin Burton MD Echocardiogram 05/05/17 04:26 Impressions: LVEF 60%. Mild left ventricular diastolic dysfunction. Normal right ventricular structure and function. Mild aortic regurgitation. Mild mitral regurgitation. Mild tricuspid regurgitation. No pulmonary hypertension. Left Ventricular Wall Motion: Rest Echo Findings All wall segments showed normal motion. Findings: Study Quality * Technically adequate exam. ECG Findings * Normal sinus rhythm. Left Ventricle * Normal LV chamber size, wall thickness and function. * LVEF 60%. * Mild left ventricular diastolic dysfunction. Right Ventricle * Normal right ventricular structure and function. Left Atrium * Normal left atrial size. Right Atrium * Normal right atrial size. Aortic Valve * Trileaflet aortic valve. * No aortic stenosis. * Mild aortic regurgitation. Mitral Valve * Normal mitral valve structure. * No mitral stenosis. * Mild mitral regurgitation. Tricuspid Valve * Tricuspid valve not well visualized. * Mild tricuspid regurgitation. * Estimated RA pressure is 3 mmHg. * Estimated RVSP is 31 mmHg. * No pulmonary hypertension. Pulmonic Valve * Pulmonic valve is not well visualized. * No pulmonic stenosis. * No pulmonic regurgitation. Pulmonary Artery * Pulmonary artery not well visualized. Pericardium * There is no pericardial effusion present. Aorta * Normally sized aortic root. Interatrial Septum * Interatrial septum not well evaluated. IVC * Normal IVC dimensions and inspiratory collapse. Qualifiers: Encounter type: initial encounter Qualified Code(s): W19.XXXA - Unspecified fall, initial encounter (3) Syncope Current Visit: Yes Status: Acute Assessment and plan: Plan as above. Echocardiogram as above. Carotids show nonstenotic plaque bilaterally. Qualifiers: Syncope type: unspecified Qualified Code(s): R55 - Syncope and collapse (4) Head trauma Current Visit: Yes Status: Acute Assessment and plan: Plan as above. Pt still reports headache. Treating with po medications. Head CT negative for acute intracranial activity. Pt is using ice for pain relief, as well. No neck stiffness or injury noted. Continue to monitor and continue [place] and Motrin. Qualifiers: Encounter type: initial encounter Qualified Code(s): S09.90XA - Unspecified injury of head, initial encounter (5) Essential hypertension Current Visit: Yes Status: Chronic Assessment and plan: Blood pressures been well controlled and the patient sitting. Continue home medications. Continue to monitor vital signs. (6) COPD (chronic obstructive pulmonary disease) Current Visit: Yes Status: Chronic Assessment and plan: No exacerbation. Lungs are clear and diminished throughout. Patient is not requiring supplement oxygen. Sats above 92%. She is not tachypneic. She denies productive cough or any cough above baseline. Continue home medications. Chest x-ray is negative. Qualifiers: COPD type: unspecified COPD Qualified Code(s): J44.9 - Chronic obstructive pulmonary disease, unspecified (7) Multiple sclerosis Current Visit: Yes Status: Chronic Assessment and plan: Patient denies flare at this time. She will continue her home dose of Glatopa. She states that she follows at the MS clinic at [facility], follow up after discharge. (8) DVT prophylaxis Current Visit: Yes Status: Acute Assessment and plan: Heparin subcutaneous. Encourage pt to ambulate and get up to bedside. - Time Spent With Patient less than 15 minutes - Subjective Interval history: She was seen and assessed at bedside at 8:45 AM. She is alert, awake, oriented and pleasant. She is alert, awake, oriented. I have encouraged her to get up to bedside/chair today and ambulate. She is aware that she will be here until morning for PT evaluation. She states that her headache has lessened and that she is feeling better. Denies n/v/d, chest pain, neck pain, or abdominal pain, denies fever, chills. - Constitutional Vitals: Temp Pulse Resp BP Pulse Ox 97.4 F L 81 16 142/87 94 05/07/17 08:30 05/07/17 08:30 05/07/17 08:30 05/07/17 08:30 05/07/17 08:30 General appearance: Present: cooperative, A&O X 3, morbidly obese, pleasant, no acute distress, answers questions appropriately - Head Head exam: Present: atraumatic, normal inspection, normocephalic - Eye Eye exam: Present: normal appearance, conjuntiva pink, sclera anicteric - Neck Neck exam general surgery: Present: supple, trachea midline. Absent: lymphadenopathy - Respiratory Respiratory exam: Present: CTAB. Absent: accessory muscle use, chest wall tenderness, decreased breath sounds, rales, respiratory distress, rhonchi, wheezes - Cardiovascular Cardiovascular exam: Present: RRR, +S1, +S2. Absent: diastolic murmur, gallop, rubs, systolic murmur - GI/Abdominal GI/Abdominal exam: Present: normal bowel sounds, soft. Absent: distended, hepatomegaly, tenderness - Extremities Exam Extremities exam: Present: warm, radial pulses palpable and symmetrical. Absent : calf tenderness, cyanotic, normal capillary refill, pedal edema, tenderness - Neurological Exam Neurological exam: Present: alert, oriented X3, no focal deficits. Absent: facial droop, speech deficit - Skin Skin exam: Present: dry, intact, normal color, warm. Absent: rash Internal Medicine: Result - Labs CBC & Chem 7: 05/06/17 05:34 05/06/17 05:34 - ABG Interpretation ABG results: PT/INR, D-dimer PT 10.9 Seconds (9.4-12.1) 05/04/17 22:48 Consult Discharge Plan - Plan Instructions: Influenza Virus Vaccine (Injection), Syncope (DC), Depression (DC ), Chronic Obstructive Pulmonary Disease (DC), Chronic Hypertension (DC), Fall Prevention (DC) Additional Instructions: Follow-up through primary care provider in the next 7-10 days for recheck. Return to normal activities as tolerated. Return to your normal diet as tolerated. Return to the emergency department as needed for any other problems or concerns or if symptoms return or worsen Referrals: Owen Reyes Jr, MD [Primary Care Provider] - 05/15/17 11:00 am Prescriptions: Tramadol HCl [Ultram] 50 mg PO BID PRN #5 tab PRN Reason: Pain
[2017-05-07] MEDS: Ibuprofen 600 MG TABLET PO PRN (16:27)
[2017-05-07] MEDS: Ondansetron 4 MG/2 ML VIAL IVP PRN (22:46)
[2017-05-08] MEDS: *HR* HYDROcodone/Acet 10/325 mg TABLET PO PRN ×2 (02:48→09:45)
[2017-05-08] MEDS: Ibuprofen 600 MG TABLET PO PRN (05:16)
[2017-05-08] MEDS: *HR* Heparin 5,000 UNIT/ML VIAL SQ SCH (05:16)
[2017-05-08 06:52] VITALS: BP 120/76
[2017-05-08] MEDS: Budesonide/Formoterol 160/4.5 MDI IH SCH (08:05)
[2017-05-08] MEDS: Spironolactone 25 MG TABLET PO SCH (09:44)
[2017-05-08] MEDS: Lactobacillus 1 EACH CAP.SPRINK PO SCH (09:44)
[2017-05-08] MEDS: Cholecalciferol (D-3) 1,000 UNIT TABLET PO SCH (09:44)
[2017-05-08] MEDS: Aspirin Enteric Coated 81 MG Tablet PO SCH (09:44)
[2017-05-08] MEDS: Multivit/Ca/Min/Fe/FA 1 TAB TABLET PO SCH (09:44)
[2017-05-08] MEDS: Topiramate 25 MG TABLET PO SCH (09:44)
[2017-05-08] MEDS: Metoprolol XL (24 HR) Succ 50 MG TAB.ER.24H PO SCH (09:44)
[2017-05-08] MEDS: Prenatal Vit/FA 1 EACH TABLET PO SCH (09:44)
[2017-05-08] MEDS: hydrOXYzine pamoate 25 MG CAPSULE PO SCH (09:45)
[2017-05-08] MEDS: Pregabalin 50 MG CAPSULE PO SCH (09:45)
[2017-05-08] MEDS: GLATIRAMER ACETATE 20 MG SQ SCH (09:46)
[2017-05-08] MEDS: Fluticasone Propionate Nasal 50 MCG/SPRAY BOTTLE NS SCH (09:46)
[2017-05-08] MEDS: PrednisoLONE Acetate 1% Opth 5 ML BOTTLE RIGHT EYE SCH (09:47)
[2017-05-08] MEDS: (Flovent Diskus] 50 MCG) IH SCH (09:51)
[2017-05-08] MEDS ORDERED: Lidocaine 1% 20 ML MDV ID ONE (10:57)
--- NOTE | 2017-05-08 12:48 | Discharge Summary ---
Date of Encounter: 05/08/17 Time of Encounter: 10:25 - Discharge Diagnosis (1) Morbid obesity Priority: Secondary Status: Chronic Comments: Chronic. Continue lifestyle modifications. (2) Fall Priority: Secondary Status: Acute Comments: She reports fall at home. She is unsure if it is a mechanical fall or due to syncope. She states she was walking in her bathroom and fell backwards and her top striking her back on the edge of the tub hitting her head on the wall. She does have a small hematoma left occiput. There is no bleeding. She denies any loss of consciousness. Head CT is negative, C-spine negative for any acute injuries. Echocardiogram shows preserved EF with mild AR, mild MR, mild TR, all wall segments with normal motion. Pt denies chest pain or dizziness since arrival. Patient states that sometimes when she is out and about she uses a cane. She is not using any assistive devices in the home. Pt initially denied need for evaluation and wanted to be discharged, stating that she did well at home with her cane. Pt was to be discharged and told primary RN that her daughter wanted her to be evaluated for PT/OT needs prior to discharge. No PT/OT services on Monday, pt stayed over until Monday. Physical therapy evaluated pt and denies needs. Pt then reports that she is going to start therapy at the MS clinic at [facility]. Pt states that she is stable for discharge and has returned to her baseline. Chest X-Ray 05/04/17 22:43 IMPRESSION: No acute abnormality detected. D/ / Bossman Kingston MD / Bossman Kingston MD Interpreting Provider: Bossman Kingston MD Head CT 05/04/17 22:43 IMPRESSION: No acute intracranial abnormality. Right posterior scalp hematoma. D/ / Lamin Burton MD / Lamin Burton MD Interpreting Provider: Lamin Burton MD Cervical Spine CT 05/04/17 22:44 IMPRESSION: Degenerative changes as above with no evidence of an acute injury. D/ / Lamin Burton MD / Lamin Burton MD Interpreting Provider: Lamin Burton MD Echocardiogram 05/05/17 04:26 Impressions: LVEF 60%. Mild left ventricular diastolic dysfunction. Normal right ventricular structure and function. Mild aortic regurgitation. Mild mitral regurgitation. Mild tricuspid regurgitation. No pulmonary hypertension. Left Ventricular Wall Motion: Rest Echo Findings All wall segments showed normal motion. Findings: Study Quality * Technically adequate exam. ECG Findings * Normal sinus rhythm. Left Ventricle * Normal LV chamber size, wall thickness and function. * LVEF 60%. * Mild left ventricular diastolic dysfunction. Right Ventricle * Normal right ventricular structure and function. Left Atrium * Normal left atrial size. Right Atrium * Normal right atrial size. Aortic Valve * Trileaflet aortic valve. * No aortic stenosis. * Mild aortic regurgitation. Mitral Valve * Normal mitral valve structure. * No mitral stenosis. * Mild mitral regurgitation. Tricuspid Valve * Tricuspid valve not well visualized. * Mild tricuspid regurgitation. * Estimated RA pressure is 3 mmHg. * Estimated RVSP is 31 mmHg. * No pulmonary hypertension. Pulmonic Valve * Pulmonic valve is not well visualized. * No pulmonic stenosis. * No pulmonic regurgitation. Pulmonary Artery * Pulmonary artery not well visualized. Pericardium * There is no pericardial effusion present. Aorta * Normally sized aortic root. Interatrial Septum * Interatrial septum not well evaluated. IVC * Normal IVC dimensions and inspiratory collapse. Qualifiers: Encounter type: initial encounter Qualified Code(s): W19.XXXA - Unspecified fall, initial encounter Qualifiers: Encounter type: initial encounter Qualified Code(s): W19.XXXA - Unspecified fall, initial encounter (3) Syncope Priority: Secondary Status: Acute Comments: Plan as above. Echocardiogram as above. Carotids show nonstenotic plaque bilaterally. Qualifiers: Syncope type: unspecified Qualified Code(s): R55 - Syncope and collapse (4) Head trauma Priority: Secondary Status: Acute Comments: Plan as above. Pt still reports headache. Treating with po medications. Head CT negative for acute intracranial activity. Pt is using ice for pain relief, as well. No neck stiffness or injury noted. Continue to monitor and continue [place] and Motrin. Qualifiers: Encounter type: initial encounter Qualified Code(s): S09.90XA - Unspecified injury of head, initial encounter (5) Essential hypertension Priority: Secondary Status: Chronic Comments: Blood pressures been well controlled and the patient sitting. Continue home medications. Continue to monitor vital signs. (6) COPD (chronic obstructive pulmonary disease) Priority: Secondary Status: Chronic Comments: No exacerbation. Lungs are clear and diminished throughout. Patient is not requiring supplement oxygen. Sats above 92%. She is not tachypneic. She denies productive cough or any cough above baseline. Continue home medications. Chest x-ray is negative. Qualifiers: COPD type: unspecified COPD Qualified Code(s): J44.9 - Chronic obstructive pulmonary disease, unspecified (7) Multiple sclerosis Priority: Secondary Status: Chronic Comments: Patient denies flare at this time. She will continue her home dose of Glatopa. She states that she follows at the MS clinic at [facility] , follow up after discharge. (8) DVT prophylaxis Priority: Secondary Status: Acute Comments: Heparin subcutaneous. Encourage pt to ambulate and get up to bedside. (9) Headache Priority: Secondary Status: Acute Comments: Pt reports headache since hitting her head s/p fall. Due to continued headache, a repeat CT was done today, negative for intracranial abnormality. Pt states that she gets relief from her normal home medication and will take Motrin intermittently. Qualifiers: Headache type: unspecified Intractability: not intractable Qualified Code (s): R51 - Headache (10) Avulsion of toenail of right foot Priority: Secondary Status: Acute Comments: Patient reports this morning she inadvertently avulsed her right fifth toenail. Bleeding was controlled when I saw it. Hospitalist Dr. Pettit assisted in care and removal of remaining portion of toenail. She will follow up with primary care. - Discharge Medications Prescriptions: Tramadol HCl [Ultram] 50 mg PO BID PRN #5 tab PRN Reason: Pain Home Medications: Amitriptyline [Elavil] 10 mg PO HS 05/05/17 [History] Aspirin [Lo-Dose Aspirin EC] 81 mg PO DAILY 05/05/17 [History] Atorvastatin [Lipitor] 40 mg PO HS 05/05/17 [History] Budesonide/Formoterol 160/4.5 [Symbicort 160/4.5] 2 puff IH BIDR PRN 05/05/17 [ History] Calcium Carbonate [Calcium] 600 mg PO DAILY 05/05/17 [History] Cholecalciferol (Vitamin D3) [Vitamin D3] 3,000 unit PO DAILY 05/05/17 [History] Clindamycin [Cleocin] 150 mg PO BID 05/05/17 [History] Cyclobenzaprine [Flexeril] 10 mg PO TID PRN 05/05/17 [History] Esomeprazole Magnesium [Nexium] 40 mg PO BID 05/05/17 [History] Fludrocortisone Acetate [Florinef] 0.1 mg PO DAILY 05/05/17 [History] Glatiramer Acetate [Copaxone] 20 mg SQ DAILY 05/05/17 [History] HYDROcodone/Acet 10/325 mg [Reeds 10-325 mg] 1 tab PO Q6HR PRN 05/05/17 [History ] LORazepam [Ativan] 1 mg PO QID PRN 05/05/17 [History] Lactobacillus Combination No.8 [Adult Probiotic] 2 tab PO DAILY 05/05/17 [ History] Metoprolol Succinate 50 mg PO DAILY 05/05/17 [History] PrednisoLONE Acetate 1% Opth [PredFORTE 1%] 1 drop RIGHT EYE BID 05/05/17 [ History] Pregabalin [Lyrica] 200 mg PO BID 05/05/17 [History] No.52/Iron/FA/Dha [Tax Compliance Representative-Pnv-Dha Softgel] 1 each PO DAILY 05/05/17 [ History] Promethazine [Phenergan] 25 mg PO Q6HR PRN 05/05/17 [History] Spironolactone [Aldactone] 50 mg PO DAILY 05/05/17 [History] Vitamin E (Dl,Tocopheryl Acet) [Vitamin E] 800 unit PO DAILY 05/05/17 [History] Zolpidem [Ambien] 5 mg PO HS PRN 05/05/17 [History] hydrOXYzine pamoate [Hydroxyzine Pamoate] 25 mg PO TID 05/05/17 [History] Tramadol HCl [Ultram] 50 mg PO BID PRN #5 tab 05/06/17 [Rx] Allergies/Adverse Reactions: 3 Allergy/AdvReac Type Severity Reaction Status Date / Time Penicillins [PCN] Allergy Hives Verified 05/05/17 09:25 sertraline [From Zoloft] Allergy Itching Verified 05/05/17 09:29 Sulfa (Sulfonamide Allergy Hives Verified 05/05/17 09:25 Antibiotics) guaifenesin [From Entex LA] AdvReac UNABLE TO Verified 05/05/17 09:25 URINATE phenylephrine [From Entex LA] AdvReac UNABLE TO Verified 05/05/17 09:25 URINATE phenylpropanolamine AdvReac UNABLE TO Verified 05/05/17 09:25 [From Entex LA] URINATE Verapamil [From Calan] AdvReac CAUSES Verified 05/05/17 09:25 SEIZURE tzanidine AdvReac Migraine Uncoded 05/05/17 09:25 Procedures/tests Complete & Pending: Procedures Performed prior 72 hours Category Date Time Status CT head/brain wo con [CT] Stat Cat Scan 05/08/17 10:54 Draft Date of admission: 05/05/17 14:13 Primary care physician: Owen Reyes Jr, MD Consults: 05/06/17 17:42 Consult to Occupational Therapy [CONS] Routine Comment: Evaluate, develop and implement POC Reason for Consult: Evaluation. Consult to Physical Therapy [CONS] Routine Comment: Evaluate, develop and implement POC Reason for Consult: Evaluation. Discharging clinician: Shyla Nagy Anticipated date of discharge: 05/08/17 - Patient Status Disposition: Home, Self-Care Condition: Good Functional capacity at discharge: independent ambulation - Discharge Instructions Instructions: Influenza Virus Vaccine (Injection), Syncope (DC), Depression (DC ), Chronic Obstructive Pulmonary Disease (DC), Chronic Hypertension (DC), Fall Prevention (DC) Follow Up With: Owen Reyes Jr, MD [Primary Care Provider] - 05/15/17 11:00 am Additional Instructions: Follow-up through primary care provider in the next 7-10 days for recheck. Return to normal activities as tolerated. Return to your normal diet as tolerated. Return to the emergency department as needed for any other problems or concerns or if symptoms return or worsen - Diet and Activity Activity: increase activity as tolerated Diet: diabetic diet Hospital course: Ms. Aranda is a 67 year old female with past medical history of MS, P a-fib , CAD, NSTEMI, HTN, DM, and HLD. Pt presented to ED s/p fall at home. She is unsure if it was a mechanical fall or syncope. Echo and carotids are negative. Pt stated that she couldn't be discharged due to her daughter wanting her to have PT. Pt originally had stated that she did not need PT and wanted to go home. No needs were identified and pt states that she is going to start PT at [facility] at the MS clinic. Pt reports headache that has been steadily improving since fall, rated 3/[address] negative. Pt is ready for discharge. Please see assessment and plan for hospital course. - Time Spent with Patient Total time spent providing and/or coordinating discharge services: Less than 30 minutes - Constitutional Vitals: Temp Pulse Resp BP Pulse Ox 97.6 F 73 16 120/76 93 05/08/17 06:52 05/08/17 06:52 05/08/17 08:05 05/08/17 08:05 05/08/17 09:53 General appearance: Present: cooperative, A&O X 3, morbidly obese, pleasant, no acute distress, answers questions appropriately - Head Head exam: Present: atraumatic, normal inspection, normocephalic - Eye Eye exam: Present: normal appearance, conjuntiva pink, sclera anicteric - Neck Neck exam general surgery: Present: normal inspection, supple, trachea midline. Absent: lymphadenopathy, tenderness - Respiratory Respiratory exam: Present: CTAB. Absent: accessory muscle use, rales, respiratory distress, rhonchi, wheezes - Cardiovascular Cardiovascular exam: Present: RRR, +S1, +S2. Absent: diastolic murmur, gallop, rubs, systolic murmur - GI/Abdominal GI/Abdominal exam: Present: normal bowel sounds, soft. Absent: distended, hepatomegaly, tenderness - Extremities Exam Extremities exam: Present: normal capillary refill, warm, radial pulses palpable and symmetrical. Absent: calf tenderness, cyanotic, pedal edema, tenderness - Neurological Exam Neurological exam: Present: alert, oriented X3, no focal deficits. Absent: facial droop, speech deficit - Skin Skin exam: Present: dry, intact, normal color, warm. Absent: rash
[2017-05-08] MEDS ORDERED: Silver Nitrate Applicator 1 STICK..EA. TP ONE ×2 (12:55→13:00)
== END 2017-05-08 16:15 | disposition home or self-care (01) | DRG 312 ==
LOC: EMEROO 22:29 → 3BNU 22:29
PROVIDERS: ADMIT Registered Nurse; ATTEND Registered Nurse

== ENCOUNTER 2017-11-01 14:05 | Observation (INO) ==
--- NOTE | 2017-11-01 14:14 | Emergency Department Note ---
Disposition Clinical Impression: Aphasia, Generalized weakness Disposition: Admitted As Inpatient Condition: Fair Referrals: Owen Reyes Jr, MD [Primary Care Provider] - Forms: ED Satisfaction Letter Time of Disposition: 16:13 General Adult HPI - General Chief complaint: ED Neuro Symptoms/Deficit Stated complaint: neuro Time Seen by Provider: 11/01/17 14:08 - Related Data Home Medications Medication Instructions Recorded Confirmed Amitriptyline [Elavil] 10 mg PO HS 05/05/17 10/15/17 Aspirin [Lo-Dose Aspirin EC] 81 mg PO DAILY 05/05/17 10/15/17 Atorvastatin [Lipitor] 40 mg PO HS 05/05/17 10/15/17 Budesonide/Formoterol 160/4.5 2 puff IH BIDR PRN 05/05/17 10/15/17 [Symbicort 160/4.5] Calcium Carbonate [Calcium] 600 mg PO DAILY 05/05/17 10/15/17 Cholecalciferol (Vitamin D3) 3,000 unit PO DAILY 05/05/17 10/15/17 [Vitamin D3] Cyclobenzaprine [Flexeril] 10 mg PO TID PRN 05/05/17 10/15/17 Esomeprazole Magnesium [Nexium] 40 mg PO BID 05/05/17 10/15/17 Fludrocortisone Acetate [Florinef] 0.1 mg PO DAILY 05/05/17 10/15/17 Glatiramer Acetate [[place]] 20 mg SQ DAILY 05/05/17 10/15/17 HYDROcodone/Acet 10/325 mg [[place] 1 tab PO Q6HR PRN 05/05/17 10/15/17 10-325 mg] LORazepam [Ativan] 1 mg PO QID PRN 05/05/17 10/15/17 Lactobacillus Combination No.8 2 tab PO DAILY 05/05/17 10/15/17 [Adult Probiotic] Metoprolol Succinate 50 mg PO DAILY 05/05/17 10/15/17 Pregabalin [Lyrica] 200 mg PO BID 05/05/17 10/15/17 No.52/Iron/FA/Dha 1 each PO DAILY 05/05/17 10/15/17 [Sanitary Chemist-Pnv-Dha Softgel] Promethazine [Phenergan] 25 mg PO Q6HR PRN 05/05/17 10/15/17 Spironolactone [Aldactone] 50 mg PO DAILY 05/05/17 10/15/17 Vitamin E (Dl,Tocopheryl Acet) 800 unit PO DAILY 05/05/17 10/15/17 [Vitamin E] Zolpidem [Ambien] 5 mg PO HS PRN 05/05/17 10/15/17 hydrOXYzine pamoate [Hydroxyzine 25 mg PO TID 05/05/17 10/15/17 Pamoate] Previous Rx's Medication Instructions Recorded Ibuprofen [Motrin] 600 mg PO Q8HR PRN #12 tab 05/08/17 Allergies Allergy/AdvReac Type Severity Reaction Status Date / Time Penicillins [PCN] Allergy Hives Verified 10/15/17 13:49 sertraline [From Zoloft] Allergy Itching Verified 10/15/17 13:49 Sulfa (Sulfonamide Allergy Hives Verified 10/15/17 13:49 Antibiotics) guaifenesin [From Entex [place]] AdvReac UNABLE TO Verified 10/15/17 13:49 URINATE phenylephrine [From Entex LA] AdvReac UNABLE TO Verified 10/15/17 13:49 URINATE phenylpropanolamine AdvReac UNABLE TO Verified 10/15/17 13:49 [From Entex LA] URINATE Verapamil [From Calan] AdvReac CAUSES Verified 10/15/17 13:49 SEIZURE tzanidine AdvReac Migraine Uncoded 10/15/17 13:49 Past Medical History - Past Medical History Medical history: Reports: non-contributory Surgical history: Reports: appendectomy, hysterectomy - Social History Smoking Status: Former smoker Smokeless Tobacco Status: No Alcohol use: Reports: none Drug use: Reports: none Course Vital Signs Temperature 97.4 F L 11/01/17 14:08 Pulse Rate 97 11/01/17 14:08 Respiratory Rate 18 11/01/17 14:08 Blood Pressure 119/64 11/01/17 14:08 O2 Sat by Pulse Oximetry 96 11/01/17 14:08 Temperature 97.4 F L 11/01/17 14:08 Pulse Rate 85 11/01/17 16:09 Respiratory Rate 16 11/01/17 16:09 Blood Pressure 118/100 11/01/17 16:09 O2 Sat by Pulse Oximetry 97 11/01/17 16:09 Oxygen Delivery Oxygen Delivery Nasal Cannula Medical Decision Making - Lab Data Result diagrams: 11/01/17 14:26 11/01/17 14:26 Lab Results 11/01/17 11/01/17 11/01/17 Range/Units 14:25 14:26 14:26 WBC 6.3 (4.3-11.1) K/mcL RBC 4.47 (3.82-4.97) M/mcL Hgb 12.5 (11.5-15.4) g/dL Hct 38.6 (35.3-44.9) % MCV 86.4 (83.0-100.0) fL MCH 28.0 (28.0-33.3) pg MCHC 32.4 (31.6-35.5) g/dL RDW 13.5 (11.5-14.5) % Plt Count 234 (140-400) K/mcL MPV 10.2 (9.4-12.4) fL Immature Gran % 0.2 (0-4) % Seg Neutrophils % 27.3 % Lymphocytes % 51.3 % Monocytes % 12.6 % Eosinophils % 7.3 % Basophils % 1.3 % Neutrophils # 1.7 (1.6-8.9) K/mcL Lymphocytes # 3.2 (0.6-4.6) K/mcL Monocytes # 0.8 (0.0-1.3) K/mcL Eosinophils # 0.5 (0.0-0.6) K/mcL Basophils # 0.1 (0.0-0.2) K/mcL PT 10.6 (9.4-12.1) Seconds INR 1.0 APTT 31.1 (26.0-36.0) Seconds Sodium (136-145) mEq/L Potassium (3.5-5.1) mEq/L Chloride (98-107) mEq/L Carbon Dioxide (23-29) mEq/L BUN (8-23) mg/dL Creatinine (0.60-1.20) mg/dL Est GFR ( Amer) (> 60) Est GFR (Non-Af Amer) (> 60) BUN/Creatinine Ratio (6-26) Glucose (70-105) mg/dL POC Glucose 144 H (70-99) mg/dL Calculated Osmolality (280-300) Calcium (8.6-10.3) mg/dL Troponin I (< 0.04) ng/mL 11/01/17 Range/Units 14:26 WBC (4.3-11.1) K/mcL RBC (3.82-4.97) M/mcL Hgb (11.5-15.4) g/dL Hct (35.3-44.9) % MCV (83.0-100.0) fL MCH (28.0-33.3) pg MCHC (31.6-35.5) g/dL RDW (11.5-14.5) % Plt Count (140-400) K/mcL MPV (9.4-12.4) fL Immature Gran % (0-4) % Seg Neutrophils % % Lymphocytes % % Monocytes % % Eosinophils % % Basophils % % Neutrophils # (1.6-8.9) K/mcL Lymphocytes # (0.6-4.6) K/mcL Monocytes # (0.0-1.3) K/mcL Eosinophils # (0.0-0.6) K/mcL Basophils # (0.0-0.2) K/mcL PT (9.4-12.1) Seconds INR APTT (26.0-36.0) Seconds Sodium 135 L (136-145) mEq/L Potassium 4.3 (3.5-5.1) mEq/L Chloride 101 (98-107) mEq/L Carbon Dioxide 23 (23-29) mEq/L BUN 18 (8-23) mg/dL Creatinine 1.02 (0.60-1.20) mg/dL Est GFR ( Amer) > 60 (> 60) Est GFR (Non-Af Amer) 54 L (> 60) BUN/Creatinine Ratio 18 (6-26) Glucose 173 H (70-105) mg/dL POC Glucose (70-99) mg/dL Calculated Osmolality 286 (280-300) Calcium 8.9 (8.6-10.3) mg/dL Troponin I < 0.03 (< 0.04) ng/mL Critical Care Time Critical Care Time: Yes Total Critical Care Time: 35 Attestation: Critical care performed: Time is exclusive of separately billable procedures. Time includes: direct patient care, patient reassessment, coordination of patient care, interpretation of data (laboratory data, radiology data, and respiratory data), review of patient's medical records, medical consultation and documentation of patient care. Procedures included in critical care time: Procedures excluded from critical care time: Attestation Statement - Attestation Attestation: I examined this patient and my medical decision-making was reviewed with the Resident Physician. I agree with the documented findings, disposition and treatment plan as described except to the extent set forth below. Patient presents to the ED with a chief complaint of difficulty speaking. Patient states she laid down to take a nap about an hour ago. States when she woke up she was having trouble talking. EMS states that her face was drooped and they got there but it resolved. On examination patient is having trouble speaking. Unable to raise either one of her arms up. This has to be done for her. They do not drip to the bed. See Dr. Whitehead's note for the rest of her full neurologic examination. Plan. Stroke alert was called. CT labs. Patient was evaluated by telestroke. Did not meet criteria for TPA as her symptoms seem more generalized in her NIH was only 3. Patient will be admitted for further neuro workup. Head CT 11/01/17 14:08 IMPRESSION: No acute intracranial abnormality. Findings were discussed with Dr. Jon See 2:31 p.m. 11/02/2007. D/ : / 11/01/2017 14:38:24 Nirmal Rodriguez MD / amisha Interpreting Provider: Nirmal Rodriguez MD Chest X-Ray 11/01/17 14:09 IMPRESSION: Hypoaeration without acute process. D/ / 11/01/2017 15:17:50 Nirmal Rodriguez MD / amisha Interpreting Provider: Nirmal Rodriguez MD
[2017-11-01 14:41] LABS: Basophils # 0.1 K/mcL (0.0-0.2); Basophils % 1.3 %; Eosinophils # 0.5 K/mcL (0.0-0.6); Eosinophils % 7.3 %; Hematocrit 38.6 % (35.3-44.9); Hemoglobin 12.5 g/dL (11.5-15.4); Immature Granulocytes % 0.2 % (0-4); Lymphocytes # 3.2 K/mcL (0.6-4.6); Lymphocytes % 51.3 %; Mean Corpuscular HGB Conc 32.4 g/dL (31.6-35.5); Mean Corpuscular Volume 86.4 fL (83.0-100.0); Mean Platelet Volume 10.2 fL (9.4-12.4); Monocytes # 0.8 K/mcL (0.0-1.3); Monocytes % 12.6 %; Neutrophils # 1.7 K/mcL (1.6-8.9); Platelet Count 234 K/mcL (140-400); Red Blood Count 4.47 M/mcL (3.82-4.97); Red Cell Distribution Width 13.5 % (11.5-14.5); Segmented Neutrophils % 27.3 %
[2017-11-01 14:49] LABS: Prothrombin Time 10.6 Seconds (9.4-12.1)
[2017-11-01 14:52] LABS: Activated Partial Thrombo Time 31.1 Seconds (26.0-36.0)
[2017-11-01 14:58] LABS: BUN/Creatinine Ratio 18 (6-26); Blood Urea Nitrogen 18 mg/dL (8-23); Calcium 8.9 mg/dL (8.6-10.3); Carbon Dioxide 23 mEq/L (23-29); Chloride 101 mEq/L (98-107); Glucose 173 mg/dL (70-105); Osmolality,Calculated 286 (280-300); Potassium 4.3 mEq/L (3.5-5.1); Sodium 135 mEq/L (136-145); eGFR For African Americans > 60 (> 60); eGFR For Non-African Americans 54 (> 60)
[2017-11-01 14:59] LABS: Troponin I < 0.03 ng/mL (< 0.04)
--- NOTE | 2017-11-01 15:36 | Emergency Department Note ---
Disposition Clinical Impression: Aphasia, Generalized weakness Disposition: Admitted As Inpatient Condition: Fair Referrals: Owen Reyes Jr, MD [Primary Care Provider] - Forms: ED Satisfaction Letter Time of Disposition: 16:44 Neuro HPI - General Chief Complaint: ED Neuro Symptoms/Deficit Stated Complaint: neuro Time Seen by Provider: 11/01/17 14:08 Source: patient, EMS Mode of arrival: ambulatory Limitations: no limitations, physical limitation Nursing Notes Reviewed: Yes Vital Signs Reviewed: Yes - History of Present Illness HPI Narrative: This 67-year-old female history of MS, seizure disorder, presents with acute onset of a facial the at approximately 1300, this is witnessed by her family who is with her. She lives with her mom and her daughter came in to see her and her son and talked on the phone, they noticed that her voice was changing that she is really slow with her speech. the mom had walked in after she had fallen although was unwitnessed she helped her up and she got back to the chair , then she started having difficulty talking, she denies weakness on one side of her body or the other. She is a baseline left-sided arm pain. She has history of previous TIAs but no history of CVA. She is not anticoagulated. History is partially obtained from the patient although she is able to understand she cannot express words very well her quickly, the patient states that she has no chest pain or abdominal pain but she does have a 4 out of 10 headache. Onset of Symptoms Date: 11/01/17 Onset of Symptoms Time: 13:00 Symptom Onset Unknown: Yes Timing confirmed by: spouse, family member Location: speech History of same: No Severity: mild Quality: weakness Symptoms Improving: Yes Improves with: time Worsens with: none Context: sudden onset On Anticoagulants: No Associated symptoms: Denies: confusion, chest pain, diaphoresis, headaches, loss of appetite, nausea/vomiting - Related Data Home Medications: Home Medications Medication Instructions Recorded Confirmed Amitriptyline [Elavil] 10 mg PO HS 05/05/17 11/01/17 Aspirin [Lo-Dose Aspirin EC] 81 mg PO DAILY 05/05/17 11/01/17 Atorvastatin [Lipitor] 40 mg PO HS 05/05/17 11/01/17 Budesonide/Formoterol 160/4.5 2 puff IH BIDR PRN 05/05/17 11/01/17 [Symbicort 160/4.5] Calcium Carbonate [Calcium] 600 mg PO DAILY 05/05/17 11/01/17 Cholecalciferol (Vitamin D3) 3,000 unit PO DAILY 05/05/17 11/01/17 [Vitamin D3] Cyclobenzaprine [Flexeril] 10 mg PO TID PRN 05/05/17 11/01/17 Esomeprazole Magnesium [Nexium] 40 mg PO BID 05/05/17 11/01/17 HYDROcodone/Acet 10/325 mg [[place] 1 tab PO Q6HR PRN 05/05/17 11/01/17 10-325 mg] Lactobacillus Combination No.8 2 tab PO DAILY 05/05/17 11/01/17 [Adult Probiotic] Pregabalin [Lyrica] 200 mg PO BID 05/05/17 11/01/17 Spironolactone [Aldactone] 50 mg PO DAILY 05/05/17 11/01/17 Vitamin E (Dl,Tocopheryl Acet) 800 unit PO DAILY 05/05/17 11/01/17 [Vitamin E] Zolpidem [Ambien] 5 mg PO HS PRN 05/05/17 11/01/17 Albuterol Neb [Proventil Neb] 2.5 mg IH TID 11/01/17 11/01/17 Albuterol Sulfate [Proventil Hfa] 2 puff IH Q6H PRN 11/01/17 11/01/17 Butalbital/Aspirin/Caffeine 1 cap PO Q4H PRN 11/01/17 11/01/17 [Fiorinal 50-325-40 mg Capsule] Calcium Polycarbophil [Fiber 625 mg PO DAILY PRN 11/01/17 11/01/17 Laxative] Clobetasol Propionate 0.05% 1 appl TP BID 11/01/17 11/01/17 [Temovate] Diphenoxylate/Atropine [Lomotil 1 tab PO QID 11/01/17 11/01/17 2.5 mg/0.025 mg] Fluticasone Propionate Nasal 1 spr NS DAILY 11/01/17 11/01/17 [Flonase] Magic Mouthwash [Magic Mouthwash 10 ml PO QID PRN 11/01/17 11/01/17 BLM] Magnesium 250 mg PO DAILY 11/01/17 11/01/17 Promethazine [Phenergan] 12.5 mg PO DAILY PRN 11/01/17 11/01/17 Allergies/Adverse Reactions: Allergies Allergy/AdvReac Type Severity Reaction Status Date / Time Penicillins [PCN] Allergy Hives Verified 11/01/17 16:32 sertraline [From Zoloft] Allergy Itching Verified 11/01/17 16:32 Sulfa (Sulfonamide Allergy Hives Verified 11/01/17 16:32 Antibiotics) guaifenesin [From Entex LA] AdvReac UNABLE TO Verified 11/01/17 16:32 URINATE phenylephrine [From Entex LA] AdvReac UNABLE TO Verified 11/01/17 16:32 URINATE phenylpropanolamine AdvReac UNABLE TO Verified 11/01/17 16:32 [From Entex LA] URINATE Verapamil [From Calan] AdvReac CAUSES Verified 11/01/17 16:32 SEIZURE tzanidine AdvReac Migraine Uncoded 11/01/17 16:32 All systems ED: reviewed and negative except as stated. Review of Systems: As Per HPI Constitutional: Reports: weakness. Denies: fever Eyes: Denies: eye pain ENT ED: Denies: ear pain Cardiovascular: Denies: chest pain Respiratory: Denies: cough, dyspnea Gastrointestinal: Denies: abdominal pain, nausea Genitourinary: Denies: urgency Musculoskeletal: Denies: back pain Integumentary: Denies: rash Neurological: Reports: as per HPI, headache, weakness. Denies: numbness, paresthesias, abnormal gait Psychiatric: Denies: anxiety Endocrine: Denies: fatigue Past Medical History - Past Medical History Attestation: Yes The following information was validated with the patient. Source: patient, old records reviewed, obtained from family Medical history: Reports: non-contributory Surgical history: Reports: appendectomy, hysterectomy Psychiatric history: Reports: no psych history - Social History Smoking Status: Former smoker Smokeless Tobacco Status: No Alcohol use: Reports: none Drug use: Reports: none Physical Exam - General Limitations: physical limitation General appearance: alert - Head Head exam: atraumatic - Eye Eye exam: Present: normal appearance, PERRL - ENT ENT exam: normal exam - Neck Neck exam: Present: normal inspection, full ROM - Chest Chest inspection: Present: normal inspection - Respiratory Respiratory exam: Present: normal lung sounds bilaterally - Cardiovascular Cardiovascular exam: Present: regular rate, normal rhythm - Abdominal Exam Abdominal exam: Present: soft, Non-Tender - Extremities Exam Extremities exam: Present: normal inspection, full ROM - Neurological Exam Neurological exam: Present: alert, oriented X3, motor sensory deficit - Expanded Neurological Exam Patient oriented to: Present: person, place, time Speech: Present: expressive aphasia Cranial nerves: facial palsy (VII): Abnormal Right Motor strength - LUE: 5/5 Motor strength - RUE: 5/5 Motor strength - LLE: 5/5 Motor strength - RLE: 5/5 Coma Scale Eye Opening: Spontaneous Coma Scale Motor Response: Obeys Commands Coma Scale Verbal Response: Oriented Coma Scale Total: 15 Course Course Narrative: Patient is a GCS of 15 but she has expressive aphasia, and she is very slow with her speech, she is able to move all of her extremities appear to be equal although she is somewhat weak in bilateral upper and lower extremities bilaterally stroke alert was called and initiated, the neurologist from [facility] did teleconference in and evaluated the patient they think that given her low NIH score with some improvement in her symptoms she is not a candidate at this time. The neurologist noted that she is not a candidate for TPA and did not recommend at this time, but did recommend aspirin an MRI and further workup by neurology. The NIH is a 3, the patient is not a candidate, even though they are within the window of timeframe, they rapidly improving symptoms and atypical presentation for stroke with just a aphasia. - Reevaluation(s) Reevaluation #1: The patient has had improvement of her symptoms, at this time she is protecting her airway awake and alert, she was given aspirin, admitted to hospitalist plan for an MRI of the brain, possible stroke versus neurologic deficits and aphasia or TIA. As her symptoms are resolving her NIH is a 2 to his time she is no facial droop. Time: 16:43 Vital Signs Temperature 97.4 F L 11/01/17 14:08 Pulse Rate 97 11/01/17 14:08 Respiratory Rate 18 11/01/17 14:08 Blood Pressure 119/64 11/01/17 14:08 O2 Sat by Pulse Oximetry 96 11/01/17 14:08 Temperature 97.4 F L 11/01/17 14:08 Pulse Rate 85 11/01/17 16:09 Respiratory Rate 16 11/01/17 16:09 Blood Pressure 118/100 11/01/17 16:09 O2 Sat by Pulse Oximetry 97 11/01/17 16:09 Oxygen Delivery Oxygen Delivery Nasal Cannula Neuro Symptoms/Deficit - Differential Diagnosis Likely: cerebrovascular accident, subarachnoid hemorrhage, transient cerebral ischemia, multiple sclerosis, convulsions - Medical Records Medical records reviewed: Yes I reviewed the patient's medical records. - Lab Data Lab results reviewed: Yes I reviewed the patient's lab results. Result diagrams: 11/01/17 14:26 11/01/17 14:26 Lab Results 11/01/17 11/01/17 11/01/17 Range/Units 14:25 14:26 14:26 WBC 6.3 (4.3-11.1) K/mcL RBC 4.47 (3.82-4.97) M/mcL Hgb 12.5 (11.5-15.4) g/dL Hct 38.6 (35.3-44.9) % MCV 86.4 (83.0-100.0) fL MCH 28.0 (28.0-33.3) pg MCHC 32.4 (31.6-35.5) g/dL RDW 13.5 (11.5-14.5) % Plt Count 234 (140-400) K/mcL MPV 10.2 (9.4-12.4) fL Immature Gran % 0.2 (0-4) % Seg Neutrophils % 27.3 % Lymphocytes % 51.3 % Monocytes % 12.6 % Eosinophils % 7.3 % Basophils % 1.3 % Neutrophils # 1.7 (1.6-8.9) K/mcL Lymphocytes # 3.2 (0.6-4.6) K/mcL Monocytes # 0.8 (0.0-1.3) K/mcL Eosinophils # 0.5 (0.0-0.6) K/mcL Basophils # 0.1 (0.0-0.2) K/mcL PT 10.6 (9.4-12.1) Seconds INR 1.0 APTT 31.1 (26.0-36.0) Seconds Sodium (136-145) mEq/L Potassium (3.5-5.1) mEq/L Chloride (98-107) mEq/L Carbon Dioxide (23-29) mEq/L BUN (8-23) mg/dL Creatinine (0.60-1.20) mg/dL Est GFR ( Amer) (> 60) Est GFR (Non-Af Amer) (> 60) BUN/Creatinine Ratio (6-26) Glucose (70-105) mg/dL POC Glucose 144 H (70-99) mg/dL Calculated Osmolality (280-300) Calcium (8.6-10.3) mg/dL Troponin I (< 0.04) ng/mL 11/01/17 Range/Units 14:26 WBC (4.3-11.1) K/mcL RBC (3.82-4.97) M/mcL Hgb (11.5-15.4) g/dL Hct (35.3-44.9) % MCV (83.0-100.0) fL MCH (28.0-33.3) pg MCHC (31.6-35.5) g/dL RDW (11.5-14.5) % Plt Count (140-400) K/mcL MPV (9.4-12.4) fL Immature Gran % (0-4) % Seg Neutrophils % % Lymphocytes % % Monocytes % % Eosinophils % % Basophils % % Neutrophils # (1.6-8.9) K/mcL Lymphocytes # (0.6-4.6) K/mcL Monocytes # (0.0-1.3) K/mcL Eosinophils # (0.0-0.6) K/mcL Basophils # (0.0-0.2) K/mcL PT (9.4-12.1) Seconds INR APTT (26.0-36.0) Seconds Sodium 135 L (136-145) mEq/L Potassium 4.3 (3.5-5.1) mEq/L Chloride 101 (98-107) mEq/L Carbon Dioxide 23 (23-29) mEq/L BUN 18 (8-23) mg/dL Creatinine 1.02 (0.60-1.20) mg/dL Est GFR ( Amer) > 60 (> 60) Est GFR (Non-Af Amer) 54 L (> 60) BUN/Creatinine Ratio 18 (6-26) Glucose 173 H (70-105) mg/dL POC Glucose (70-99) mg/dL Calculated Osmolality 286 (280-300) Calcium 8.9 (8.6-10.3) mg/dL Troponin I < 0.03 (< 0.04) ng/mL - Radiology Data Radiology results reviewed: Yes I reviewed the patient's radiology results. Head CT 11/01/17 14:08 IMPRESSION: No acute intracranial abnormality. Findings were discussed with Dr. Jon See 2:31 p.m. 11/02/2007. D/ / 11/01/2017 14:38:24 Nirmal Rodriguez MD / amisha Interpreting Provider: Nirmal Rodriguez MD Chest X-Ray 11/01/17 14:09 IMPRESSION: Hypoaeration without acute process. D/ / 11/01/2017 15:17:50 Nirmal Rodriguez MD / amisha Interpreting Provider: Nirmal Rodriguez MD - EKG Data EKG attestation: Yes I reviewed and interpreted this EKG. EKG shows normal: sinus rhythm Rate: normal (89 bpm NE 179 QRS [address] segment elevations or depressions.) Rhythm: NSR [place]/QRS: normal NIH Stroke Scale - Level of Consciousness LOC: Alert - LOC Questions LOC Questions: Answers both correctly - LOC Commands LOC Commands: Performs both correctly - Best Gaze Best Gaze: Normal - Visual Visual: No visual loss - Facial Palsy Facial Palsy: Minor asymmetry on smiling, flattened nasolabial fold - Motor Arms Motor Arm-Left: No drift for 10 seconds Motor Arm-Right: No drift for 10 seconds - Motor Legs Motor Leg-Left: No drift for 5 seconds Motor Leg-Right: No drift for 5 seconds - Limb Ataxia Limb Ataxia: Absent of affected limb too weak to perform exam - Sensory Sensory: Normal - Best Language Best Language: Mild to moderate aphasia. Examiner can identify picture from response - Dysarthria Dysarthria: Mild, slurs some words - Extinction and Inattention Extinction and Inattention: Normal - NIHSS Total Score NIHSS Total Score: 3 TPA Checklist - Eligibilty for IV tPA 1. LKW equal to or less than 4.5 hours be before treatment: Yes 2. Clinical diagnosis of ischemic stroke causing deficit: No 3. Age 18 years or older: Yes - Contraindications 4. Evidence of intracranial hemorrhage on pretreatment CT: No 5. Presentation suggests subarachnoid hem, even if CT normal: No 6. CT shows multilobar infarction: No 7. Known neoplasm, arteriovenous malformation, or aneurysm: No 8. Significant head trauma (w/ LOC) or CVA in last 3 months: No 9. BP elevated (systolic > 185 or diastolic > 110): No 10. Abnormal Blood Glucose (<50 or >400mg/dl): No 11. Active internal bleeding [PM.TPA15]: No 12. Known bleeding risk (including; not limited to 13-15): No 13. Heparin/argatroban/bivalirudin w/in 48hrs & PTT > normal: No 14. Platelet count less than 100,000/MM3: No 15. Current or recent use of anticoagualants (see protocol): No - LKW: 3-4.5 hrs Add. Warnings/Precautions Patient/family understanding: The patient/family members have been counseled and understood the risk, benefit , and alternatives of treatment.
[2017-11-01] MEDS ORDERED: Aspirin 81 MG TAB.CHEW PO STA (16:16)
[2017-11-01] MEDS ORDERED: cefTRIAXone 1,000 MG in Water for inj. (sterile) 20 ML 10 ML IVP ONE (17:24)
[2017-11-01] MEDS ORDERED: Acetaminophen 325 MG TABLET PO PRN (18:52)
[2017-11-01] MEDS ORDERED: Naloxone 0.4 MG/ML INJ IVP PRN (18:52)
[2017-11-01] MEDS ORDERED: Acetaminophen/Butalbital/CaffeineTABLET PO PRN (19:01)
[2017-11-01] MEDS ORDERED: Magic Mouthwash 10 ML UD Cup PO PRN (19:01)
--- NOTE | 2017-11-01 19:33 | Internal Med History&Physical ---
<Guillermo Patel Justin - Last Filed: 11/01/17 21:20> Date of Encounter: 11/01/17 Time of Encounter: 18:00 Internal Medicine - H&P: HPI Chief complaint: Neuro deficits/Symptoms Admitted From: Emergency Dept Plans for Post Hospital Care: Home History of present illness: Ms. 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 Pt. reports that at approximately 13:00 she began to experience facial numbness and drooping, slow and slurred speech, bilateral lower extremity weakness, and an unwitnessed fall. Pt. reports that she has MS dx and has not had her MS meds for 4 months d/t insurance lapse. Recently dxd w/ bronchitis and placed on PO Cipro. Reports dx today w/UTI. Reports severe weakness in bilateral LEs but denies CP, SOB, headache, changes in vision, cough , congestion, abdominal pain, diarrhea, constipation, unusual bleeding, syncope. Past Med Surg Social Fam HX - Past Medical History Source: patient, old records reviewed, obtained from family Medical history: GERD, hyperlipidemia, hypertension, RA, valvular heart disease Additional medical history: MS, Psychiatric history: no psych history - Past Surgical History Surgical History: appendectomy, hysterectomy Additional surgical history: tonsilectomy, D&C - Social History Smoking Status: Former smoker Smokeless Tobacco Status: No Alcohol use: none Drug use: none Current living situation: Home, With Family Activity Level: Uses cane/walker Recent Out of Country Travel Within the Last 8 Weeks: No Exposure or Possible Exposure to Illness During Travel: No - Family History Mother Race: Family Member Ethnicity: Non- Living Status: Still Living Hx Family Cardiac Disorders: Yes (HTN) Hx Family Cancer: Yes (Colon) Father Race: Family Member Ethnicity: Non- Living Status: Age at : 79 Cause of : Metastatic cancer Hx Family Cardiac Disorders: Yes (HD, Multiple MIs, Quad Bypass) Brother Race: Family Member Ethnicity: Non- Living Status: Still Living Hx Family Cardiac Disorders: Yes (HTN) Hx Family GI Disorders: Yes (Diverticulosis) Sister Race: Family Member Ethnicity: Non- Living Status: Still Living Hx Family Musculoskeletal Disorders: Yes Internal Medicine - H&P: Meds Amitriptyline [Elavil] 10 mg PO HS 05/05/17 [History] Aspirin [Lo-Dose Aspirin EC] 81 mg PO DAILY 05/05/17 [History] Atorvastatin [Lipitor] 40 mg PO HS 05/05/17 [History] Budesonide/Formoterol 160/4.5 [Symbicort 160/4.5] 2 puff IH BIDR PRN 05/05/17 [ History] Calcium Carbonate [Calcium] 600 mg PO DAILY 05/05/17 [History] Cholecalciferol (Vitamin D3) [Vitamin D3] 3,000 unit PO DAILY 05/05/17 [History] Cyclobenzaprine [Flexeril] 10 mg PO TID PRN 05/05/17 [History] Esomeprazole Magnesium [Nexium] 40 mg PO BID 05/05/17 [History] HYDROcodone/Acet 10/325 mg [Omena 10-325 mg] 1 tab PO Q6HR PRN 05/05/17 [History ] Lactobacillus Combination No.8 [Adult Probiotic] 2 tab PO DAILY 05/05/17 [ History] Pregabalin [Lyrica] 200 mg PO BID 05/05/17 [History] Spironolactone [Aldactone] 50 mg PO DAILY 05/05/17 [History] Vitamin E (Dl,Tocopheryl Acet) [Vitamin E] 800 unit PO DAILY 05/05/17 [History] Zolpidem [Ambien] 5 mg PO HS PRN 05/05/17 [History] Albuterol Neb [Proventil Neb] 2.5 mg IH TID 11/01/17 [History] Albuterol Sulfate [Proventil Hfa] 2 puff IH Q6H PRN 11/01/17 [History] Butalbital/Aspirin/Caffeine [Fiorinal 50-325-40 mg Capsule] 1 cap PO Q4H PRN 11/13 [History] Calcium Polycarbophil [Fiber Laxative] 625 mg PO DAILY PRN 11/01/17 [History] Clobetasol Propionate 0.05% [Temovate] 1 appl TP BID 11/01/17 [History] Diphenoxylate/Atropine [Lomotil 2.5 mg/0.025 mg] 1 tab PO QID 11/01/17 [History] Fluticasone Propionate Nasal [Flonase] 1 spr NS DAILY 11/01/17 [History] Magic Mouthwash [Magic Mouthwash BLM] 10 ml PO QID PRN 11/01/17 [History] Magnesium 250 mg PO DAILY 11/01/17 [History] Promethazine [Phenergan] 12.5 mg PO DAILY PRN 11/01/17 [History] 3 Allergy/AdvReac Type Severity Reaction Status Date / Time Penicillins [PCN] Allergy Hives Verified 11/01/17 16:32 sertraline [From Zoloft] Allergy Itching Verified 11/01/17 16:32 Sulfa (Sulfonamide Allergy Hives Verified 11/01/17 16:32 Antibiotics) guaifenesin [From Entex LA] AdvReac UNABLE TO Verified 11/01/17 16:32 URINATE phenylephrine [From Entex LA] AdvReac UNABLE TO Verified 11/01/17 16:32 URINATE phenylpropanolamine AdvReac UNABLE TO Verified 11/01/17 16:32 [From Entex LA] URINATE Verapamil [From Calan] AdvReac CAUSES Verified 11/01/17 16:32 SEIZURE tzanidine AdvReac Migraine Uncoded 11/01/17 16:32 All Systems PM: A 10-system review of systems was performed and is negative for pertinent findings except as documented above in the HPI. - Constitutional Constitutional: as per HPI, falls, weakness (Bilateral LEs), no chills, no fever (s), no night sweats - EENT Eyes: no change in vision, no discharge, no pain, no photophobia Ears: no ear discharge, no ear pain, no tinnitus Nose, mouth and throat: no dysphagia, no nasal discharge, no neck pain, no sore throat - Breasts Breasts: as per HPI - Cardiovascular Cardiovascular ROS IM: no chest pain, no diaphoresis, no dyspnea, no lightheadedness, no palpitations, no syncope - Respiratory Respiratory: no cough, no dyspnea, no wheezing, no excessive phlegm production - Gastrointestinal Gastrointestinal: no abdominal pain, no diarrhea, no hematemesis, no hematochezia, no melena, no nausea, no vomiting - Genitourinary Genitourinary: no change in urinary stream, no dysuria, no flank pain, no hematuria Menstruation: as per HPI, post hysterectomy - Musculoskeletal Musculoskeletal ROS IM: as per HPI, back pain, no numbness, no tingling - Integumentary Integumentary IM: as per HPI, other (Cellulitis of LEs), no rash, no unusual bruising - Neurological Neurological ROS: as per HPI, abnormal speech, frequent falls, weakness ( Bilateral LEs), no confusion, no convulsions, no focal weakness, no numbness, no tingling, no tremor(s) - Psychiatric Psychiatric: as per HPI - Endocrine Endocrine IM: as per HPI - Hematologic/Lymphatic Hematologic/Lymphatic: no easy bruising - Allergic/Immunologic Allergic/Immunologic: as per HPI - Constitutional Vitals: Temp Pulse Resp BP Pulse Ox 97.9 F 83 18 164/93 99 11/01/17 19:07 11/01/17 19:07 11/01/17 19:07 11/01/17 19:07 11/01/17 19:07 General appearance: Present: cooperative, mild distress (Bilateral LE weakness) , A&O X 3, morbidly obese, pleasant, answers questions appropriately - Head Head exam: Present: atraumatic, normocephalic - Eye Eye exam: Present: PERRL, conjuntiva pink, sclera anicteric Pupils: Present: PERRL - ENT ENT exam: Present: normal exam - Neck Neck exam general surgery: Present: supple, trachea midline. Absent: lymphadenopathy - Respiratory Respiratory exam: Present: CTAB. Absent: accessory muscle use, rales, rhonchi, wheezes - Cardiovascular Cardiovascular exam: Present: RRR, +S1, +S2. Absent: diastolic murmur, gallop, rubs, systolic murmur - GI/Abdominal GI/Abdominal exam: Present: normal bowel sounds, soft, no peritoneal signs. Absent: distended, tenderness - Rectal Rectal exam: Present: deferred - Additional comments: exam deferred. - Extremities Exam Extremities exam: Present: pedal edema, warm, radial pulses palpable and symmetrical. Absent: calf tenderness, cyanotic - Back Exam Back exam: Present: vertebral tenderness - Neurological Exam Neurological exam: Present: alert, CN II-XII intact, oriented X3, no focal deficits. Absent: pronater drift, facial droop, speech deficit - Psychiatric Psychiatric exam: Present: normal affect, normal mood - Skin Skin exam: Present: dry, erythema (D/t cellulitis of LEs), intact Internal Med - H&P Results - Labs CBC & Chem 7: 11/01/17 14:26 11/01/17 14:26 - Diagnostic Studies Chest x-ray Additional comments: Impressions Chest X-Ray 11/01/17 14:09 IMPRESSION: Hypoaeration without acute process. D/ / 11/01/2017 15:17:50 Nirmal Rodriguez MD / amisha Interpreting Provider: Nirmal Rodriguez MD CT scan - head Additional comments: Impressions Head CT 11/01/17 14:08 IMPRESSION: No acute intracranial abnormality. Findings were discussed with Dr. Jon See 2:31 p.m. 11/02/2007. D/ / 11/01/2017 14:38:24 Nirmal Rodriguez MD / amisha Interpreting Provider: Nirmal Rodriguez MD - Assessment and plan (1) TIA (transient ischemic attack) Current Visit: Yes Status: Acute Assessment and plan: Acute TIA sx today. Pt. and family report facial droop and aphasia which have resolved. Pt. reports continued bilateral LE weakness. On exam, right leg slightly stronger than left. Unable to lift left leg off bed. Hx of MS and has not taken MS meds for 4 months d/t insurance lapse. Denies personal hx of CVA/ TIA but Grandmother had CVA. No UE weakness on exam, no facial droop, no aphasia. CT of the head/brain shows no acute intracranial abnormality. MRI of head/brain ordered. Echocardiogram ordered. Bilateral carotid Dopplers ordered. NIHSS. Neuro checks every 15 M times a day, every hour 2, then every 2 hours. Falls/safety precautions, up with assist, bed rest w/bedside commode w/assist only. Neurology consult ordered and discussed w/Dr. Kimball w/recommendation for aspirin and MRI and I appreciate the consult. Pt. discussed w/Dr. Julien who agrees w/plan of care. Pt. is high risk for further morbidity d/t current and new TIA sx, familial hx of CVA, hx of MS w/o medications for 4 months, hx of falls w/injury to bilateral knees and back, hx, and risk factors. Observation. Qualifiers: Transient cerebral ischemia type: unspecified Qualified Code(s): G45.9 - Transient cerebral ischemic attack, unspecified (2) Fall Current Visit: Yes Status: Acute Assessment and plan: Acute on chronic fall. Pt. and family reports hx of falls. Latest today. Pt. reports hx of MS. Pt. reports back pain and bilateral knee pain following fall today. XR of knees and thoracic/lumbar/coccyx/sacrum ordered. Falls/safety precautions, up with assist, bed rest w/bedside commode w/assist only. Neuro consult ordered and discussed w/Dr. Kimball and I appreciate the consult. Qualifiers: Encounter type: initial encounter Qualified Code(s): W19.XXXA - Unspecified fall, initial encounter (3) Generalized weakness Current Visit: Yes Status: Acute Assessment and plan: Acute weakness. Pt. reports hx of MS and has not taken her MS meds for 4 months d/t insurance lapse. Pt. has appt. w/provider treating her MS next week at [facility]. Falls/safety precautions, up with assist, bed rest w/bedside commode w/assist only. (4) Avulsion of toenail of left foot Current Visit: Yes Status: Acute Assessment and plan: Acute avulsion of the toenail of left great toe. Wound Care consult ordered w/ daily wound care. (5) HTN (hypertension) Current Visit: Yes Status: Chronic Assessment and plan: Hx of chronic HTN. Monitor pt. and VS. Continue pts. Aldactone. Qualifiers: Hypertension type: essential hypertension Qualified Code(s): I10 - Essential (primary) hypertension (6) HLD (hyperlipidemia) Current Visit: Yes Status: Chronic Assessment and plan: Hx of chronic HLD. Lipid panel in a.m. labs. Continue pts. Lipitor. Qualifiers: Hyperlipidemia type: pure hypercholesterolemia Qualified Code(s): E78.00 - Pure hypercholesterolemia, unspecified; E78.0 - Pure hypercholesterolemia (7) GERD (gastroesophageal reflux disease) Current Visit: Yes Status: Chronic Assessment and plan: Hx of chronic GERD. Continue pts. PO Nexium. Qualifiers: Esophagitis presence: esophagitis presence not specified Qualified Code(s) : K21.9 - Gastro-esophageal reflux disease without esophagitis (8) COPD (chronic obstructive pulmonary disease) Current Visit: Yes Status: Chronic Assessment and plan: Hx of chronic COPD. Continue pts. inhalers. Supplemental O2 w/titration and SpO2 monitoring. Pt. placed on PO Cipro for bronchitis. Will continue IVPB for bronchitis and current UTI. Qualifiers: COPD type: unspecified COPD Qualified Code(s): J44.9 - Chronic obstructive pulmonary disease, unspecified (9) Multiple sclerosis Current Visit: Yes Status: Chronic Assessment and plan: Hx of MS. Pt. states she has not taken her MS meds for four months d/t insurance lapse. Has scheduled appt. at [facility] next week. SW consult ordered to assess for insurance needs. MRI ordered. Falls/safety precautions, up with assist, bed rest w/bedside commode w/assist only. (10) Aphasia Current Visit: Yes Status: Resolved Assessment and plan: Acute aphasia today as reported by pt. and family. Resolved. Monitor per scheduled neuro checks. Dysphagia screen passed. (11) DVT prophylaxis Current Visit: Yes Status: Acute Assessment and plan: Heparin 5,000 units SQ Q8HR for DVT prophylaxis. Monitor pt. for signs of bleeding. - Time Spent With Patient Total time spent is greater than 50% in coordination of care (as documented) at patient's floor/unit and/or counseling patient: Greater than 35 minutes <Niya Julien - Last Filed: 11/01/17 22:20> Date of Encounter: 11/01/17 Internal Medicine - H&P: HPI History of present illness: Ms. Aranda is a 67 year old female All Systems PM: A 10-system review of systems was performed and is negative for pertinent findings except as documented above in the HPI. - Constitutional Vitals: Temp Pulse Resp BP Pulse Ox 97.9 F 83 18 164/93 99 11/01/17 19:07 11/01/17 19:07 11/01/17 19:07 11/01/17 19:07 11/01/17 19:07 Internal Med - H&P Results - Labs CBC & Chem 7: 11/01/17 14:26 11/01/17 14:26 Labs: Cardiac Enzymes 11/01/17 Range/Units 21:17 Troponin I < 0.03 (< 0.04) ng/mL - Impressions ITS Impressions Brain MRI 11/01/17 19:15 IMPRESSION: Numerous high-signal lesions in the periventricular white matter that are most likely related to demyelination given the orientation of the lesions. Chronic small vessel ischemic changes can cause a similar finding. There are no areas of restricted diffusion to suggest an acute ischemic event. D/ / 11/01/2017 21:50:18 Winifred Jang MD / staci Interpreting Provider: Winifred Jang MD - Attending Attestation I performed a history and physical exam of the patient and discussed her management with the DAIRY MANAGER. I reviewed the CNPs note and agree with the documented findings and plan of care. - Time Spent With Patient Total time spent is greater than 50% in coordination of care (as documented) at patient's floor/unit and/or counseling patient:
[2017-11-01] MEDS ORDERED: *HR* LORazepam 2 MG/ML VIAL IVP ONE (19:41)
[2017-11-01] MEDS: *HR* HYDROcodone/Acet 10/325 mg TABLET PO PRN (19:42)
[2017-11-01] MEDS: Lactobacillus 1 EACH CAP.SPRINK PO SCH (22:53)
[2017-11-01] MEDS: Spironolactone 25 MG TABLET PO SCH (22:53)
[2017-11-01] MEDS: Aspirin Enteric Coated 81 MG Tablet PO SCH (22:53)
[2017-11-01] MEDS: Fluticasone Propionate Nasal 50 MCG/SPRAY BOTTLE NS SCH (22:54)
[2017-11-01] MEDS: Magnesium Oxide 400 MG TABLET PO SCH (22:54)
[2017-11-01] MEDS: Cholecalciferol (D-3) 1,000 UNIT TABLET PO SCH (22:54)
[2017-11-01] MEDS: Pregabalin 50 MG CAPSULE PO SCH (22:56)
[2017-11-01] MEDS: Acetaminophen/Butalbital/CaffeineTABLET PO PRN (22:57)
[2017-11-01] MEDS: *HR* Heparin 5,000 UNIT/ML VIAL SQ SCH (22:57)
[2017-11-01] MEDS ORDERED: Albuterol 2.5 MG/3 ML NEBULIZER ONE (23:04)
[2017-11-01 23:09] LABS: Bilirubin,Urine Negative (Negative); Blood,Urine Negative (Negative); Clarity,Urine Clear (Clear); Color,Urine Yellow (Yellow); Glucose,Urine (UA) Normal (Normal); Ketones,Urine Negative (Negative); Leukocyte Esterase,Urine Negative (Negative); Nitrite,Urine Negative (Negative); PH,Urine 7.5 pH Units (5.0-8.0); Protein,Urine Negative (Neg-Trace); Specific Gravity,Urine 1.008 (1.010-1.025); Urobilinogen,Urine Normal (Normal)
[2017-11-01 23:13] LABS: Bacteria,Urine None Seen per hpf (None-Few); Hyaline Casts,Urine None Seen per lpf (None-Few); RBC,Urine 0-3 per hpf (0-3); Squamous Epithelial Cell,Urine None Seen per lpf (None-Few); WBC,Urine 0-3 per hpf (0-3)
[2017-11-01] MEDS: Albuterol 2.5 MG/3 ML NEBULIZER IH SCH (23:15)
[2017-11-01] MEDS: Budesonide/Formoterol 160/4.5 MDI IH PRN (23:15)
[2017-11-01] MEDS: Diphenoxylate/Atropine 1 TAB TABLET PO SCH (23:22)
[2017-11-01] MEDS: CLOBETASOL PROPIONATE 15 GM TUBE TP SCH (23:22)
[2017-11-02 04:19] LABS: Basophils # 0.1 K/mcL (0.0-0.2); Basophils % 0.9 %; Eosinophils # 0.4 K/mcL (0.0-0.6); Eosinophils % 5.5 %; Hematocrit 31.8 % (35.3-44.9); Immature Granulocytes % 0.3 % (0-4); Lymphocytes # 2.2 K/mcL (0.6-4.6); Lymphocytes % 34.3 %; Mean Corpuscular HGB Conc 32.7 g/dL (31.6-35.5); Mean Corpuscular Hemoglobin 27.9 pg (28.0-33.3); Mean Corpuscular Volume 85.3 fL (83.0-100.0); Mean Platelet Volume 10.7 fL (9.4-12.4); Monocytes # 0.9 K/mcL (0.0-1.3); Monocytes % 13.4 %; Platelet Count 223 K/mcL (140-400); Red Blood Count 3.73 M/mcL (3.82-4.97); Red Cell Distribution Width 13.3 % (11.5-14.5); Segmented Neutrophils % 45.6 %
[2017-11-02 04:20] LABS: Hemoglobin 10.4 g/dL (11.5-15.4)
[2017-11-02 04:39] LABS: Alanine Aminotransferase 16 Units/L (7-52); Albumin/Globulin Ratio 1.4 (1.1-2.2); Alkaline Phosphatase 65 Units/L (34-104); Aspartate Amino Transferase 17 Units/L (13-39); BUN/Creatinine Ratio 20 (6-26); Bilirubin,Total 0.6 mg/dL (0.3-1.0); Blood Urea Nitrogen 16 mg/dL (8-23); Calcium 8.3 mg/dL (8.6-10.3); Carbon Dioxide 23 mEq/L (23-29); Chloride 102 mEq/L (98-107); Chol/HDL Ratio 2.1 (0-4.9); Cholesterol 99 mg/dL (< 200); Globulin 2.2 g/dL (2.4-3.5); Glucose 128 mg/dL (70-105); HDL Cholesterol 47 mg/dL (40-59); LDL Cholesterol,Calculated 39 mg/dL (0-99); Magnesium 1.3 mg/dL (1.6-2.6); Osmolality,Calculated 281 (280-300); Sodium 134 mEq/L (136-145); Total Protein 5.2 g/dL (6.4-8.9); Triglycerides 67 mg/dL (< 150); eGFR For African Americans > 60 (> 60); eGFR For Non-African Americans > 60 (> 60)
[2017-11-02] MEDS: *HR* HYDROcodone/Acet 10/325 mg TABLET PO PRN ×2 (04:53→16:32)
[2017-11-02] MEDS: *HR* Heparin 5,000 UNIT/ML VIAL SQ SCH ×3 (06:42→20:51)
[2017-11-02] MEDS: Acetaminophen/Butalbital/CaffeineTABLET PO PRN ×2 (06:57→20:49)
[2017-11-02 07:31] LABS: Estimated Average Glucose 163 mg/dl; Hemoglobin A1C 7.3 %
[2017-11-02] MEDS: Albuterol 2.5 MG/3 ML NEBULIZER IH SCH ×3 (10:22→22:57)
[2017-11-02] MEDS: Budesonide/Formoterol 160/4.5 MDI IH PRN ×2 (10:22→22:58)
[2017-11-02] MEDS ORDERED: 0.9 % Sodium Chloride 500 ML IVC PRN (10:31)
[2017-11-02] MEDS: Pregabalin 50 MG CAPSULE PO SCH ×2 (10:38→20:46)
[2017-11-02] MEDS: Cholecalciferol (D-3) 1,000 UNIT TABLET PO SCH (10:55)
[2017-11-02] MEDS: Diphenoxylate/Atropine 1 TAB TABLET PO SCH ×4 (10:55→20:45)
[2017-11-02] MEDS: Lactobacillus 1 EACH CAP.SPRINK PO SCH (10:55)
[2017-11-02] MEDS: Aspirin Enteric Coated 81 MG Tablet PO SCH (10:56)
[2017-11-02] MEDS: Fluticasone Propionate Nasal 50 MCG/SPRAY BOTTLE NS SCH (10:56)
[2017-11-02] MEDS: Magnesium Oxide 400 MG TABLET PO SCH (10:56)
[2017-11-02] MEDS: CLOBETASOL PROPIONATE 15 GM TUBE TP SCH (10:56)
[2017-11-02] MEDS: Spironolactone 25 MG TABLET PO SCH (11:48)
--- NOTE | 2017-11-02 13:25 | Internal Med Progress Note ---
Date of Encounter: 11/02/17 Time of Encounter: 13:00 - Assessment and plan (1) Multiple sclerosis Current Visit: Yes Status: Chronic Assessment and plan: Hx of MS. Pt. states she has not taken her MS meds for four months d/t insurance lapse. Pt likely has MS exacerbation with the neurologic symptoms she presented with. Will start on high dose solumedrol IV daily. Appreciate neuro recs (2) TIA (transient ischemic attack) Current Visit: Yes Status: Acute Assessment and plan: Acute TIA sx today. Pt. and family report facial droop and aphasia which have resolved. Pt. CT of the head/brain shows no acute intracranial abnormality. MRI of head/brain ordered. Echocardiogram ordered. Bilateral carotid Dopplers ordered. Neurology recs appreciated. Continue on aspirin Qualifiers: Transient cerebral ischemia type: unspecified Qualified Code(s): G45.9 - Transient cerebral ischemic attack, unspecified (3) Aphasia Current Visit: Yes Status: Resolved Assessment and plan: Acute aphasia today as reported by pt. and family. Resolved. Monitor per scheduled neuro checks. Dysphagia screen passed. (4) Fall Current Visit: Yes Status: Acute Assessment and plan: Acute on chronic fall. Pt. and family reports hx of falls. Latest today. Pt. reports hx of MS. Pt. reports back pain and bilateral knee pain following fall today. XR of knees and thoracic/lumbar/coccyx/sacrum ordered. Falls/safety precautions, up with assist, bed rest w/bedside commode w/assist only. Neuro consult ordered and discussed w/Dr. Kimball and I appreciate the consult. Qualifiers: Encounter type: initial encounter Qualified Code(s): W19.XXXA - Unspecified fall, initial encounter (5) DVT prophylaxis Current Visit: Yes Status: Acute Assessment and plan: Heparin 5,000 units SQ Q8HR for DVT prophylaxis. Monitor pt. for signs of bleeding. (6) COPD (chronic obstructive pulmonary disease) Current Visit: Yes Status: Chronic Assessment and plan: Hx of chronic COPD. Continue pts. inhalers. Supplemental O2 w/titration and SpO2 monitoring. Pt. placed on PO Cipro for bronchitis. Will continue IVPB for bronchitis and current UTI. Qualifiers: COPD type: unspecified COPD Qualified Code(s): J44.9 - Chronic obstructive pulmonary disease, unspecified (7) Generalized weakness Current Visit: Yes Status: Acute Assessment and plan: Acute weakness. Pt. reports hx of MS and has not taken her MS meds for 4 months d/t insurance lapse. Pt. has appt. w/provider treating her MS next week at [facility]. Falls/safety precautions, up with assist, bed rest w/bedside commode w/assist only. (8) HTN (hypertension) Current Visit: Yes Status: Chronic Assessment and plan: Hx of chronic HTN. Monitor pt. and VS. Continue pts. Aldactone. Qualifiers: Hypertension type: essential hypertension Qualified Code(s): I10 - Essential (primary) hypertension (9) HLD (hyperlipidemia) Current Visit: Yes Status: Chronic Assessment and plan: Hx of chronic HLD. Lipid panel in a.m. labs. Continue pts. Lipitor. Qualifiers: Hyperlipidemia type: pure hypercholesterolemia Qualified Code(s): E78.00 - Pure hypercholesterolemia, unspecified; E78.0 - Pure hypercholesterolemia (10) GERD (gastroesophageal reflux disease) Current Visit: Yes Status: Chronic Assessment and plan: Hx of chronic GERD. Continue pts. PO Nexium. Qualifiers: Esophagitis presence: esophagitis presence not specified Qualified Code(s) : K21.9 - Gastro-esophageal reflux disease without esophagitis (11) Avulsion of toenail of left foot Current Visit: Yes Status: Acute Assessment and plan: Acute avulsion of the toenail of left great toe. Wound Care consult ordered w/ daily wound care. (12) Multiple sclerosis exacerbation Current Visit: Yes Status: Acute - Time Spent With Patient Total time spent is greater than 50% in coordination of care (as documented) at patient's floor/unit and/or counseling patient: - Subjective Interval history: No acute events overnight - Constitutional Vitals: Temp Pulse Resp BP Pulse Ox 97.9 F 95 16 93/47 94 11/02/17 10:47 11/02/17 10:47 11/02/17 10:47 11/02/17 10:47 11/02/17 10:47 General appearance: Present: cooperative, mild distress (Bilateral LE weakness) , A&O X 3, morbidly obese, pleasant, answers questions appropriately - Head Head exam: Present: atraumatic, normocephalic - Eye Eye exam: Present: PERRL, conjuntiva pink, sclera anicteric Pupils: Present: PERRL - Neck Neck exam general surgery: Present: supple, trachea midline. Absent: lymphadenopathy - Respiratory Respiratory exam: Present: CTAB. Absent: accessory muscle use, rales, rhonchi, wheezes - Cardiovascular Cardiovascular exam: Present: RRR, +S1, +S2. Absent: diastolic murmur, gallop, rubs, systolic murmur - GI/Abdominal GI/Abdominal exam: Present: normal bowel sounds, soft, no peritoneal signs. Absent: distended, tenderness - Extremities Exam Extremities exam: Present: warm, radial pulses palpable and symmetrical. Absent : calf tenderness, cyanotic, pedal edema - Neurological Exam Neurological exam: Present: CN II-XII intact, oriented X3, no focal deficits. Absent: pronater drift, facial droop, speech deficit - Skin Skin exam: Present: dry, intact Internal Medicine: Result - Labs CBC & Chem 7: 11/02/17 03:27 11/02/17 03:27 Labs: Short CBC 11/02/17 Range/Units 03:27 WBC 6.5 (4.3-11.1) K/mcL Hgb 10.4 L D (11.5-15.4) g/dL Hct 31.8 L (35.3-44.9) % Plt Count 223 (140-400) K/mcL Neutrophils # 3.0 (1.6-8.9) K/mcL BMP 11/02/17 03:27 Sodium 134 L Potassium 4.0 Chloride 102 Carbon Dioxide 23 BUN 16 Creatinine 0.82 Glucose 128 H Calcium 8.3 L Cardiac Enzymes 11/01/17 11/02/17 Range/Units 21:17 03:27 Troponin I < 0.03 < 0.03 (< 0.04) ng/mL Liver Function 11/02/17 Range/Units 03:27 Total Bilirubin 0.6 (0.3-1.0) mg/dL AST 17 (13-39) Units/L ALT 16 (7-52) Units/L Alkaline Phosphatase 65 (34-104) Units/L Albumin 3.0 L (3.5-5.7) g/dL Urine 11/01/17 Range/Units 20:55 Urine Color Yellow (Yellow) Urine Clarity Clear (Clear) Urine pH 7.5 (5.0-8.0) pH Units Ur Specific A[place]or 1.008 L (1.010-1.025) Urine Protein Negative (Neg-Trace) mg/dL Urine Glucose (UA) Normal (Normal) mg/dL - ABG Interpretation ABG results: PT/INR, D-dimer PT 10.6 Seconds (9.4-12.1) 11/01/17 14:26 - Impressions Impressions Knee X-Ray 11/01/17 19:04 IMPRESSION: Degenerative changes in the right knee without acute osseous abnormality. There is mild limitation of the distal femur due to overlying tubing Degenerative changes in the left knee without acute osseous abnormality Degenerative changes throughout the thoracolumbar spine without acute osseous abnormality No acute osseous abnormality in the sacrum or the coccyx. SI joint degenerative changes are noted. Pubic symphysis degenerative changes are noted D/ / Lamin Camarena / Lamin Camarena Interpreting Provider: Lamin Camarnea Lumbar Spine X-Ray 11/01/17 19:04 IMPRESSION: Degenerative changes in the right knee without acute osseous abnormality. There is mild limitation of the distal femur due to overlying tubing Degenerative changes in the left knee without acute osseous abnormality Degenerative changes throughout the thoracolumbar spine without acute osseous abnormality No acute osseous abnormality in the sacrum or the coccyx. SI joint degenerative changes are noted. Pubic symphysis degenerative changes are noted D/ / Lamin Camarena / Lamin Camarena Interpreting Provider: Lamin Camarena Sacrum and Coccyx X-Ray 11/01/17 19:04 IMPRESSION: Degenerative changes in the right knee without acute osseous abnormality. There is mild limitation of the distal femur due to overlying tubing Degenerative changes in the left knee without acute osseous abnormality Degenerative changes throughout the thoracolumbar spine without acute osseous abnormality No acute osseous abnormality in the sacrum or the coccyx. SI joint degenerative changes are noted. Pubic symphysis degenerative changes are noted D/ / Lamin Camarena / Lamin Camarena Interpreting Provider: Lamin Camarena Thoracic Spine X-Ray 11/01/17 19:04 IMPRESSION: Degenerative changes in the right knee without acute osseous abnormality. There is mild limitation of the distal femur due to overlying tubing Degenerative changes in the left knee without acute osseous abnormality Degenerative changes throughout the thoracolumbar spine without acute osseous abnormality No acute osseous abnormality in the sacrum or the coccyx. SI joint degenerative changes are noted. Pubic symphysis degenerative changes are noted D/ / Lamin Camarena / Lamin Camarena Interpreting Provider: Lamin Camarena Brain MRI 11/01/17 19:15 IMPRESSION: Numerous high-signal lesions in the periventricular white matter that are most likely related to demyelination given the orientation of the lesions. Chronic small vessel ischemic changes can cause a similar finding. There are no areas of restricted diffusion to suggest an acute ischemic event. D/ / 11/01/2017 21:50:18 Winifred Jang MD / staci Interpreting Provider: Winifred Jang MD Consult Discharge Plan - Plan Referrals: Owen Reyes Jr, MD [Primary Care Provider] -
--- NOTE | 2017-11-02 20:18 | Neurology - Consult Note ---
Date of Encounter: 11/02/17 Time of Encounter: 20:12 Assessment and Plan (1) Fall Current Visit: Yes Status: Acute It is my strong impression that her labile blood pressure may be resulting in syncope or presyncope. I believe this is likely the reason for her fall. It is not at all likely that this was an MS exacerbation. I would not expect an MS exacerbation to resolve over such a short period of time. The MRI scan is consistent with demyelinating disease. There was no evidence however of an acute ischemic lesion. It is possible that this could have been a TIA however in my experience vascular lesions are very definitive in presentation and have localizing features.. She really does not have a specific localizing feature. In the beginning apparently she had right-sided weakness and then she developed left-sided weakness. I also believe that there is a strong supratentorial component. I believe that she gets very anxious and upset very easily and simply decompensates and starts to catastrophize. At this juncture I would simply recommend from a neurologic perspective increasing her aspirin up to 162 mg daily. I will refer her back to her primary care provider to manage her anxiety. I would recommend increasing her activity as soon as possible so that she does not get deconditioned. Dr. Montilla has been managing her hypertension. Perhaps she could be consulted during this admission for her recommendations and assessment of her labile blood pressures. Finally I would refer her back to her neurologist at [facility] for ongoing treatment and management of her MS. I will reevaluate her at your request. Qualifiers: Encounter type: initial encounter Qualified Code(s): W19.XXXA - Unspecified fall, initial encounter History of Present Illness HPI: The chart was reviewed, the patient was seen and examined. Ms. Aranda is a 67 year old female with the previous diagnosis of multiple sclerosis who is seen for neurologic evaluation secondary to new symptomatology which began yesterday. Apparently she states that when she got up from bed she apparently lost her balance and fell. She did not lose consciousness however. Her daughter is present today who helps to provide specific details. Her daughter states that her mother's speech became slow and deliberate. This lasted for much of the day yesterday. There is some discrepancy about whether not she was weak on the right side as her daughter feels, but the patient feels that she was weaker on the left side. She has a diagnosis of multiple sclerosis and has been under the care of of a neurologist from [facility] for the last several years. Unfortunately her insurance changed about 4 months or so ago and she has not been able to get her MS medication. The patient at this time is very anxious, bordering on hysterical. She keeps reiterating "I do not want to " she was previously seen by my associate Dr. Salomon for seizures. 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 However apparently he did an MRI scan at that time which revealed evidence of demyelinating lesions. Ultimately the pseudoseizures stopped when her 2 years ago. Since admission her blood pressure has been extremely labile. She has had an echocardiogram which was negative and carotid duplex Doppler revealed minimal plaquing. MRI scan of the brain does reveal white matter changes consistent with a demyelinating disease, there are also changes that could be consistent with chronic white matter ischemic change. Patient is somewhat difficult to get a history from because she is very tangential. Past Med Surg Social Fam HX - Past Medical History Medical history: COPD, GERD, hyperlipidemia, hypertension, RA, valvular heart disease Additional medical history: bronchitis, syncope, MS, rheumatoid arthritis, neuropathy, TIA Psychiatric history: depression - Past Surgical History Surgical History: appendectomy, hysterectomy Additional surgical history: tonsilectomy, D&C X5, Right breast lumpectomy, 2 hand surgeries, right rotator cuff repair, 2 right foot surgeries, bilateral knee surgeries - Social History Smoking Status: Never smoker Smokeless Tobacco Status: No Alcohol use: none Drug use: none - Family History Mother Race: Family Member Ethnicity: Non- Living Status: Still Living Hx Family Cardiac Disorders: Yes (HTN) Hx Family Cancer: Yes (Colon) Father Race: Family Member Ethnicity: Non- Living Status: Age at : 79 Cause of : Metastatic cancer Hx Family Cardiac Disorders: Yes (VT) Hx Family Respiratory Disorders: Yes Hx Family Cancer: Yes Brother Race: Family Member Ethnicity: Non- Living Status: Still Living Hx Family Cardiac Disorders: Yes (HTN) Hx Family GI Disorders: Yes (Diverticulosis) Sister Race: Family Member Ethnicity: Non- Living Status: Still Living Hx Family Musculoskeletal Disorders: Yes Medications and Allergies Amitriptyline [Elavil] 10 mg PO HS 05/05/17 [History] Aspirin [Lo-Dose Aspirin EC] 81 mg PO DAILY 05/05/17 [History] Atorvastatin [Lipitor] 40 mg PO HS 05/05/17 [History] Budesonide/Formoterol 160/4.5 [Symbicort 160/4.5] 2 puff IH BIDR PRN 05/05/17 [ History] Calcium Carbonate [Calcium] 600 mg PO DAILY 05/05/17 [History] Cholecalciferol (Vitamin D3) [Vitamin D3] 3,000 unit PO DAILY 05/05/17 [History] Cyclobenzaprine [Flexeril] 10 mg PO TID PRN 05/05/17 [History] Esomeprazole Magnesium [Nexium] 40 mg PO BID 05/05/17 [History] HYDROcodone/Acet 10/325 mg [[place] 10-325 mg] 1 tab PO Q6HR PRN 05/05/17 [History ] Lactobacillus Combination No.8 [Adult Probiotic] 2 tab PO DAILY 05/05/17 [ History] Pregabalin [Lyrica] 200 mg PO BID 05/05/17 [History] Spironolactone [Aldactone] 50 mg PO DAILY 05/05/17 [History] Vitamin E (Dl,Tocopheryl Acet) [Vitamin E] 800 unit PO DAILY 05/05/17 [History] Zolpidem [Ambien] 5 mg PO HS PRN 05/05/17 [History] Albuterol Neb [Proventil Neb] 2.5 mg IH TID 11/01/17 [History] Albuterol Sulfate [Proventil Hfa] 2 puff IH Q6H PRN 11/01/17 [History] Butalbital/Aspirin/Caffeine [Fiorinal 50-325-40 mg Capsule] 1 cap PO Q4H PRN 11/13 [History] Calcium Polycarbophil [Fiber Laxative] 625 mg PO DAILY PRN 11/01/17 [History] Clobetasol Propionate 0.05% [Temovate] 1 appl TP BID 11/01/17 [History] Diphenoxylate/Atropine [Lomotil 2.5 mg/0.025 mg] 1 tab PO QID 11/01/17 [History] Fluticasone Propionate Nasal [Flonase] 1 spr NS DAILY 11/01/17 [History] Magic Mouthwash [Magic Mouthwash BLM] 10 ml PO QID PRN 11/01/17 [History] Magnesium 250 mg PO DAILY 11/01/17 [History] Promethazine [Phenergan] 12.5 mg PO DAILY PRN 11/01/17 [History] 3 Allergy/AdvReac Type Severity Reaction Status Date / Time Penicillins [PCN] Allergy Hives Verified 11/01/17 16:32 sertraline [From Zoloft] Allergy Itching Verified 11/01/17 16:32 Sulfa (Sulfonamide Allergy Hives Verified 11/01/17 16:32 Antibiotics) guaifenesin [From Entex LA] AdvReac UNABLE TO Verified 11/01/17 16:32 URINATE phenylephrine [From Entex LA] AdvReac UNABLE TO Verified 11/01/17 16:32 URINATE phenylpropanolamine AdvReac UNABLE TO Verified 11/01/17 16:32 [From Entex LA] URINATE Verapamil [From Calan] AdvReac CAUSES Verified 11/01/17 16:32 SEIZURE tzanidine AdvReac Migraine Uncoded 11/01/17 16:32 All Systems: The remainder of the systems were reviewed and are negative Review of Systems: The balance of the systems review is negative. Physical Examination - Vital Signs Vital Signs: Initial Vital Signs Temp Pulse Resp BP Pulse Ox 97.4 F L 97 18 119/64 96 11/01/17 14:08 11/01/17 14:08 11/01/17 14:08 11/01/17 14:08 11/01/17 14:08 - Neurologic Detailed motor examination: other (Patient does have pre-existing weakness of the left upper extremity due to a left rotator cuff injury. She has difficulty raising the left arm above her head. However she can flex and extend at the elbow. She is able to alemite operator my hand on the left although the alemite operator is weak at about 3/5. She is able to raise the left leg off the bed to gravity however has give way weakness of the left leg it seems. She is able to dorsiflex and plantar flex but has give way weakness here to on the left. She seems to be a bit stronger of the right upper and right lower extremities. There are no involuntary movements identified and no atrophy present.) Detailed sensory examination: intact (Sensory exam finds patchy areas of hypoesthesia not consistent with stroke.) Reflex and gait examination: other (Deep tendon reflexes are diminished throughout.) Mental Status Examination: Patient is awake, alert, and oriented to person place and time. She follows commands and answers questions appropriately. There is no agnosia aphasia or apraxia. However she is very tangential. She is also very anxious bordering on hysterical. She keeps saying "I do not want to , all of my dogs, my children want to spend time with my mother". She says this more than once during my assessment. Speech is clear. She has no evidence of dysarthria or dysphasia. Cranial nerve examination: PERRL, EOMI, visual ray intact, corneal reflexes brisk symmetrically, sensory to face intact, mastication intact, no facial asymmetry is present, no dysarthria, hearing is intact symmetrically, soft palate elevates bilaterally upon phonation, gag reflex intact, flexes SCM and trapezius muscles symmetrically with full power, tongue protrudes midline, no atrophy or facial fasiculations present Cerebellar examination: no truncal ataxia Results - Laboratory Findings CBC and BMP: 11/02/17 03:27 11/02/17 03:27 Abnormal lab findings: Abnormal lab results RBC 3.73 M/mcL (3.82-4.97) L 11/02/17 03:27 Hgb 10.4 g/dL (11.5-15.4) L D 11/02/17 03:27 Hct 31.8 % (35.3-44.9) L 11/02/17 03:27 MCH 27.9 pg (28.0-33.3) L 11/02/17 03:27 Sodium 134 mEq/L (136-145) L 11/02/17 03:27 Glucose 128 mg/dL (70-105) H 11/02/17 03:27 POC Glucose 144 mg/dL (70-99) H 11/01/17 14:25 Hemoglobin A1c 7.3 % (-5.6) H 11/02/17 03:27 Calcium 8.3 mg/dL (8.6-10.3) L 11/02/17 03:27 Magnesium 1.3 mg/dL (1.6-2.6) L 11/02/17 03:27 Serum Total Protein 5.2 g/dL (6.4-8.9) L 11/02/17 03:27 Albumin 3.0 g/dL (3.5-5.7) L 11/02/17 03:27 Globulin 2.2 g/dL (2.4-3.5) L 11/02/17 03:27 Ur Specific [place] 1.008 (1.010-1.025) L 11/01/17 20:55 Consult Discharge Plan - Plan Referrals: Owen Reyes Jr, MD [Primary Care Provider] -
[2017-11-03] MEDS: *HR* HYDROcodone/Acet 10/325 mg TABLET PO PRN ×2 (01:34→15:44)
[2017-11-03 01:47] LABS: Hematocrit 36.3 % (35.3-44.9); Immature Granulocytes % 0.7 % (0-4); Lymphocytes # 0.4 K/mcL (0.6-4.6); Lymphocytes % 9.3 %; Mean Corpuscular HGB Conc 33.9 g/dL (31.6-35.5); Mean Corpuscular Volume 82.7 fL (83.0-100.0); Mean Platelet Volume 10.3 fL (9.4-12.4); Monocytes % 0.7 %; Neutrophils # 3.7 K/mcL (1.6-8.9); Platelet Count 262 K/mcL (140-400); Red Blood Count 4.39 M/mcL (3.82-4.97); Red Cell Distribution Width 13.2 % (11.5-14.5); Segmented Neutrophils % 89.3 %
[2017-11-03 01:48] LABS: Hemoglobin 12.3 g/dL (11.5-15.4)
[2017-11-03 02:06] LABS: Potassium 3.9 mEq/L (3.5-5.1)
[2017-11-03] MEDS: CLOBETASOL PROPIONATE 15 GM TUBE TP SCH ×3 (02:37→20:19)
[2017-11-03] MEDS: *HR* Heparin 5,000 UNIT/ML VIAL SQ SCH ×3 (05:38→22:00)
[2017-11-03] MEDS: Acetaminophen/Butalbital/CaffeineTABLET PO PRN ×2 (08:06→20:07)
[2017-11-03] MEDS ORDERED: 0.9 % Sodium Chloride 500 ML IVC ONE (08:24)
--- NOTE | 2017-11-03 09:16 | Electrocardiograph Report ---
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
[2017-11-03] MEDS: Albuterol 2.5 MG/3 ML NEBULIZER IH SCH ×2 (10:31→15:33)
[2017-11-03] MEDS: 0.9 % Sodium Chloride 1,000 ML IVC SCH (11:33)
[2017-11-03] MEDS: Diphenoxylate/Atropine 1 TAB TABLET PO SCH ×4 (11:35→20:08)
[2017-11-03] MEDS ORDERED: Ondansetron 4 MG/2 ML VIAL IVP ONE (11:48)
[2017-11-03] MEDS ORDERED: Scopolamine Patch 1.5 MG PATCH.TD72 TD ONE (13:17)
--- NOTE | 2017-11-03 13:34 | Internal Med Progress Note ---
<Carolina Mcclelland - Last Filed: 11/03/17 13:32> Date of Encounter: 11/03/17 Time of Encounter: 13:32 - Assessment and plan (1) Fall Current Visit: Yes Status: Acute Assessment and plan: Acute on chronic fall. Pt. and family reports hx of falls. Pt. reports hx of MS. Pt. reports back pain and bilateral knee pain following fall today. XR of knees and thoracic/lumbar/coccyx/sacrum WNL. Falls/safety precautions, up with assist, bed rest w/bedside commode w/assist only. Neuro consulted and does not feel this was a MS exacerbation Qualifiers: Encounter type: initial encounter Qualified Code(s): W19.XXXA - Unspecified fall, initial encounter (2) COPD (chronic obstructive pulmonary disease) Current Visit: Yes Status: Chronic Assessment and plan: Hx of chronic COPD. Continue pts. inhalers. Supplemental O2 w/titration and SpO2 monitoring. Pt. placed on PO Cipro for bronchitis as an outpatient. Will continue IVPB for bronchitis and current UTI. Qualifiers: COPD type: unspecified COPD Qualified Code(s): J44.9 - Chronic obstructive pulmonary disease, unspecified (3) Multiple sclerosis Current Visit: Yes Status: Chronic Assessment and plan: Hx of MS. Pt. states she has not taken her MS meds for four months d/t insurance lapse. Neurology consulted and does not feel this is a MS exacerbation. D/C IV solumedrol (4) Aphasia Current Visit: Yes Status: Resolved Assessment and plan: Acute aphasia today as reported by pt. and family. Resolved. Monitor per scheduled neuro checks. Dysphagia screen passed. (5) HLD (hyperlipidemia) Current Visit: Yes Status: Chronic Assessment and plan: Hx of chronic HLD. Continue pts. Lipitor. Qualifiers: Hyperlipidemia type: pure hypercholesterolemia Qualified Code(s): E78.00 - Pure hypercholesterolemia, unspecified; E78.0 - Pure hypercholesterolemia (6) GERD (gastroesophageal reflux disease) Current Visit: Yes Status: Chronic Assessment and plan: Hx of chronic GERD. Continue pts. PO Nexium. Qualifiers: Esophagitis presence: esophagitis presence not specified Qualified Code(s) : K21.9 - Gastro-esophageal reflux disease without esophagitis (7) Avulsion of toenail of left foot Current Visit: Yes Status: Acute Assessment and plan: Acute avulsion of the toenail of left great toe. Wound Care consulted and will refer to podiatry. daily wound care. (8) TIA (transient ischemic attack) Current Visit: Yes Status: Acute Assessment and plan: Acute TIA sx today. Pt. and family report facial droop and aphasia which have resolved. Pt. CT of the head/brain shows no acute intracranial abnormality. MRI of head/brain shows demyelination but no signs of acute ischemic event. Echocardiogram shows EF 60%. Bilateral carotid Dopplers show minimal plaque throughout. Neurology recommend increasing her aspirin up to 162 mg daily. Do not feel this is an MS exacerbation. Qualifiers: Transient cerebral ischemia type: unspecified Qualified Code(s): G45.9 - Transient cerebral ischemic attack, unspecified (9) DVT prophylaxis Current Visit: Yes Status: Acute Assessment and plan: Heparin 5,000 units SQ Q8HR for DVT prophylaxis. Monitor pt. for signs of bleeding. - Time Spent With Patient Total time spent is greater than 50% in coordination of care (as documented) at patient's floor/unit and/or counseling patient: - Subjective Interval history: Patient states she is having a mild headache with nausea. Patient normally takes phenergen for nausea at home. Patient denies any new neurological symptoms. All previous neurological symptoms have now resolved. Patient states she tried to get up last night to use the restroom and felt dizzy. No dizzness this AM. - Constitutional Vitals: Temp Pulse Resp BP Pulse Ox 97.6 F 106 18 179/113 95 11/03/17 06:13 11/03/17 11:21 11/03/17 11:21 11/03/17 11:21 11/03/17 11:21 General appearance: Present: cooperative, A&O X 3, answers questions appropriately - Head Head exam: Present: atraumatic, normocephalic - Respiratory Respiratory exam: Present: CTAB. Absent: accessory muscle use, rales, rhonchi, wheezes - Cardiovascular Cardiovascular exam: Present: tachycardia. Absent: distant heart sounds, irregular rhythm - GI/Abdominal GI/Abdominal exam: Present: soft. Absent: rebound, rigid, tenderness - Extremities Exam Extremities exam: Present: warm. Absent: tenderness - Neurological Exam Neurological exam: Present: alert, oriented X3, no focal deficits Internal Medicine: Result - Labs CBC & Chem 7: 11/03/17 01:29 11/03/17 01:29 Labs: Short CBC 11/03/17 Range/Units 01:29 WBC 4.1 L (4.3-11.1) K/mcL Hgb 12.3 D (11.5-15.4) g/dL Hct 36.3 (35.3-44.9) % Plt Count 262 (140-400) K/mcL Neutrophils # 3.7 (1.6-8.9) K/mcL BMP 11/03/17 01:29 Sodium 126 L Potassium 3.9 Chloride 96 L Carbon Dioxide 18 L BUN 17 Creatinine 1.19 Glucose 381 H Calcium 9.0 - ABG Interpretation ABG results: PT/INR, D-dimer PT 10.6 Seconds (9.4-12.1) 11/01/17 14:26 - Impressions Impressions Brain MRI 11/01/17 19:15 IMPRESSION: Numerous high-signal lesions in the periventricular white matter that are most likely related to demyelination given the orientation of the lesions. Chronic small vessel ischemic changes can cause a similar finding. There are no areas of restricted diffusion to suggest an acute ischemic event. D/ / 11/01/2017 21:50:18 Winifred Jang MD / staci Interpreting Provider: Winifred Jang MD Echocardiogram 11/02/17 19:14 Impressions: Technically sub-optimal due to body habitus. LVEF 60%. Normal LV chamber size, wall thickness and function. Normal right ventricular structure and function. Mild left ventricular diastolic dysfunction. No evidence of pulmonary hypertension. No significant valvular dysfunction. Left Ventricular Wall Motion: Rest Echo Findings All wall segments showed normal motion. Findings: Study Quality * Technically sub-optimal due to body habitus. ECG Findings * Normal sinus rhythm. Left Ventricle * LVEF 60%. * Normal LV chamber size, wall thickness and function. * Mild left ventricular diastolic dysfunction. Right Ventricle * Normal right ventricular structure and function. Left Atrium * Moderately dilated left atrium. Right Atrium * Normal right atrial size. Aortic Valve * Aortic valve not well visualized. * No aortic regurgitation. * No aortic stenosis. Mitral Valve * Normal mitral valve structure and function. * No mitral regurgitation. * No mitral stenosis. Tricuspid Valve * Normal tricuspid valve structure and function. * Trace tricuspid regurgitation. * No evidence of pulmonary hypertension. Pulmonic Valve * Pulmonic valve not well visualized. * No pulmonic regurgitation. Aorta * Normally sized aortic root. Pericardium * The pericardium appears normal. Pulmonary Artery * Pulmonary artery not well visualized. IVC * The IVC is not well evaluated. Consult Discharge Plan - Plan Referrals: Owen Reyes Jr, MD [Primary Care Provider] - <EuniceBoristu - Last Filed: 11/03/17 15:43> Date of Encounter: 11/03/17 - Time Spent With Patient Total time spent is greater than 50% in coordination of care (as documented) at patient's floor/unit and/or counseling patient: - Constitutional Vitals: Temp Pulse Resp BP Pulse Ox 97.6 F 106 18 179/113 95 11/03/17 06:13 11/03/17 11:21 11/03/17 11:21 11/03/17 11:21 11/03/17 11:21 Internal Medicine: Result - Labs CBC & Chem 7: 11/03/17 01:29 11/03/17 01:29 Labs: Short CBC 11/03/17 Range/Units 01:29 WBC 4.1 L (4.3-11.1) K/mcL Hgb 12.3 D (11.5-15.4) g/dL Hct 36.3 (35.3-44.9) % Plt Count 262 (140-400) K/mcL Neutrophils # 3.7 (1.6-8.9) K/mcL BMP 11/03/17 01:29 Sodium 126 L Potassium 3.9 Chloride 96 L Carbon Dioxide 18 L BUN 17 Creatinine 1.19 Glucose 381 H Calcium 9.0 - ABG Interpretation ABG results: PT/INR, D-dimer PT 10.6 Seconds (9.4-12.1) 11/01/17 14:26 - Impressions Impressions Brain MRI 11/01/17 19:15 IMPRESSION: Numerous high-signal lesions in the periventricular white matter that are most likely related to demyelination given the orientation of the lesions. Chronic small vessel ischemic changes can cause a similar finding. There are no areas of restricted diffusion to suggest an acute ischemic event. D/ / 11/01/2017 21:50:18 Winifred Jang MD / staci Interpreting Provider: Winifred Jang MD Echocardiogram 11/02/17 19:14 Impressions: Technically sub-optimal due to body habitus. LVEF 60%. Normal LV chamber size, wall thickness and function. Normal right ventricular structure and function. Mild left ventricular diastolic dysfunction. No evidence of pulmonary hypertension. No significant valvular dysfunction. Left Ventricular Wall Motion: Rest Echo Findings All wall segments showed normal motion. Findings: Study Quality * Technically sub-optimal due to body habitus. ECG Findings * Normal sinus rhythm. Left Ventricle * LVEF 60%. * Normal LV chamber size, wall thickness and function. * Mild left ventricular diastolic dysfunction. Right Ventricle * Normal right ventricular structure and function. Left Atrium * Moderately dilated left atrium. Right Atrium * Normal right atrial size. Aortic Valve * Aortic valve not well visualized. * No aortic regurgitation. * No aortic stenosis. Mitral Valve * Normal mitral valve structure and function. * No mitral regurgitation. * No mitral stenosis. Tricuspid Valve * Normal tricuspid valve structure and function. * Trace tricuspid regurgitation. * No evidence of pulmonary hypertension. Pulmonic Valve * Pulmonic valve not well visualized. * No pulmonic regurgitation. Aorta * Normally sized aortic root. Pericardium * The pericardium appears normal. Pulmonary Artery * Pulmonary artery not well visualized. IVC * The IVC is not well evaluated. - Attending Attestation I saw and examined this patient independently, and my medical decision making was reviewed with the Resident on 2017. I agree with the documented findings, assessment and treatment plan as described in the progress note .
[2017-11-03] MEDS ORDERED: Ketorolac 15 MG/ML VIAL IVP ONE (14:14)
[2017-11-03] MEDS ORDERED: Prochlorperazine 10 MG/2 ML VIAL IVP SCH (14:15)
[2017-11-03] MEDS: Spironolactone 25 MG TABLET PO SCH (14:58)
[2017-11-03] MEDS: Aspirin Enteric Coated 81 MG Tablet PO SCH (14:58)
[2017-11-03] MEDS: Magnesium Oxide 400 MG TABLET PO SCH (14:59)
[2017-11-03] MEDS: Fluticasone Propionate Nasal 50 MCG/SPRAY BOTTLE NS SCH (14:59)
[2017-11-03] MEDS: Lactobacillus 1 EACH CAP.SPRINK PO SCH (14:59)
[2017-11-03] MEDS: Pregabalin 50 MG CAPSULE PO SCH ×2 (14:59→20:08)
[2017-11-03] MEDS: Cholecalciferol (D-3) 1,000 UNIT TABLET PO SCH (14:59)
[2017-11-04] MEDS: Albuterol 2.5 MG/3 ML NEBULIZER IH SCH ×3 (00:23→15:32)
[2017-11-04] MEDS: 0.9 % Sodium Chloride 1,000 ML IVC SCH (01:13)
[2017-11-04] MEDS: *HR* Heparin 5,000 UNIT/ML VIAL SQ SCH (05:22)
[2017-11-04 05:58] LABS: Basophils % 0.1 %; Eosinophils % 0.1 %; Hematocrit 33.3 % (35.3-44.9); Hemoglobin 11.4 g/dL (11.5-15.4); Immature Granulocytes % 0.9 % (0-4); Lymphocytes % 7.2 %; Mean Corpuscular HGB Conc 34.2 g/dL (31.6-35.5); Mean Corpuscular Hemoglobin 28.1 pg (28.0-33.3); Mean Corpuscular Volume 82.2 fL (83.0-100.0); Mean Platelet Volume 10.4 fL (9.4-12.4); Monocytes # 0.4 K/mcL (0.0-1.3); Monocytes % 3.1 %; Neutrophils # 12.5 K/mcL (1.6-8.9); Platelet Count 257 K/mcL (140-400); Red Blood Count 4.05 M/mcL (3.82-4.97); Red Cell Distribution Width 13.2 % (11.5-14.5); Segmented Neutrophils % 88.6 %
[2017-11-04] MEDS ORDERED: Ondansetron 4 MG/2 ML VIAL IVP PRN (06:14)
[2017-11-04] MEDS ORDERED: *HR* Promethazine 25 MG/ML VIAL IVP PRN (06:14)
[2017-11-04 06:19] LABS: BUN/Creatinine Ratio 20 (6-26); Blood Urea Nitrogen 16 mg/dL (8-23); Calcium 8.3 mg/dL (8.6-10.3); Carbon Dioxide 22 mEq/L (23-29); Chloride 101 mEq/L (98-107); Glucose 293 mg/dL (70-105); Osmolality,Calculated 284 (280-300); Potassium 3.7 mEq/L (3.5-5.1); Sodium 131 mEq/L (136-145); eGFR For African Americans > 60 (> 60); eGFR For Non-African Americans > 60 (> 60)
[2017-11-04] MEDS: Magnesium Oxide 400 MG TABLET PO SCH (09:35)
[2017-11-04] MEDS: Spironolactone 25 MG TABLET PO SCH (09:35)
[2017-11-04] MEDS: Aspirin Enteric Coated 81 MG Tablet PO SCH (09:35)
[2017-11-04] MEDS: Cholecalciferol (D-3) 1,000 UNIT TABLET PO SCH (09:35)
[2017-11-04] MEDS: Diphenoxylate/Atropine 1 TAB TABLET PO SCH ×2 (09:35→12:49)
[2017-11-04] MEDS: Lactobacillus 1 EACH CAP.SPRINK PO SCH (09:35)
[2017-11-04] MEDS: Pregabalin 50 MG CAPSULE PO SCH (09:36)
[2017-11-04] MEDS: *HR* HYDROcodone/Acet 10/325 mg TABLET PO PRN (09:36)
[2017-11-04] MEDS: Fluticasone Propionate Nasal 50 MCG/SPRAY BOTTLE NS SCH (09:37)
[2017-11-04] MEDS: CLOBETASOL PROPIONATE 15 GM TUBE TP SCH (09:38)
[2017-11-04] MEDS: Budesonide/Formoterol 160/4.5 MDI IH PRN (09:46)
[2017-11-04 11:12] VITALS: BP 172/99
--- NOTE | 2017-11-04 14:08 | Discharge Summary ---
<Carolina Mcclelland - Last Filed: 11/04/17 14:06> Orders not resulted at time of discharge: Pending orders 11/05/17 04:00 Basic Metabolic Panel AM 0400 CBC [Complete Blood Count] [HEME] AM 0400 11/06/17 04:00 Basic Metabolic Panel AM 0400 CBC [Complete Blood Count] [HEME] AM 0400 11/07/17 04:00 Basic Metabolic Panel AM 0400 CBC [Complete Blood Count] [HEME] AM 0400 11/08/17 04:00 Basic Metabolic Panel AM 0400 CBC [Complete Blood Count] [HEME] AM 0400 Date of Encounter: 11/04/17 Time of Encounter: 14:06 - Discharge Diagnosis (1) Fall Priority: Primary Status: Acute Qualifiers: Encounter type: initial encounter Qualified Code(s): W19.XXXA - Unspecified fall, initial encounter (2) COPD (chronic obstructive pulmonary disease) Priority: Secondary Status: Chronic Qualifiers: COPD type: unspecified COPD Qualified Code(s): J44.9 - Chronic obstructive pulmonary disease, unspecified (3) Multiple sclerosis Priority: Secondary Status: Chronic (4) Aphasia Priority: Secondary Status: Resolved (5) HLD (hyperlipidemia) Priority: Secondary Status: Chronic Qualifiers: Hyperlipidemia type: pure hypercholesterolemia Qualified Code(s): E78.00 - Pure hypercholesterolemia, unspecified; E78.0 - Pure hypercholesterolemia (6) GERD (gastroesophageal reflux disease) Priority: Secondary Status: Chronic Qualifiers: Esophagitis presence: esophagitis presence not specified Qualified Code(s) : K21.9 - Gastro-esophageal reflux disease without esophagitis (7) Avulsion of toenail of left foot Priority: Secondary Status: Acute (8) TIA (transient ischemic attack) Priority: Secondary Status: Acute Qualifiers: Transient cerebral ischemia type: unspecified Qualified Code(s): G45.9 - Transient cerebral ischemic attack, unspecified Hospital course: Ms. Aranda is a 67 year old female with significant past medical history of COPD, rheumatoid arthritis, multiple sclerosis, hypertension, hyperlipidemia, tachycardia, mitral valve prolapse, GERD, neuropathy who presented to the emergency Department chief complaint of neurological deficit that began that morning. Patient states she felt facial numbness and drooping along with slow and slurred speech. She also had bilateral lower extremity weakness. She also describes an unwitnessed fall. Patient does have a known diagnosis of multiple sclerosis. She has been unable take her medications for 4 months due to insurance lapse. During patient's admission she received a CT of the head along with MRI of the brain. CT of the head was within normal limits. Brain MRI showed demyelination but no new acute findings. Neurology was consulted. They felt that the patient's symptoms are not related with her multiple sclerosis or any neurological issue. They were concerned about her labile blood pressure. They suggest that she follows up with her physician at [facility] for continuation of her multiple sclerosis medications. Patient also had multiple episodes of severe nausea while admitted. She was treated with IV Phenergan. This was then changed to by mouth Phenergan. Patient does have known prescription of Phenergan at home. Denies nausea at this time. Patient able to ambulate without difficulty with her walker which she has at home. Patient received echo along the carotid which were unchanged from previous. Patient had been taking 50 mg of metoprolol twice a day at home along with spironolactone. While she was here we decreased her metoprolol to 25 mg twice a day. Patient was able to withstand this medication change with minimal changes in her blood pressure. She has had no recurrent episodes of syncope or falls. Patient has outpatient follow-up with [facility] for neurology and psychotherapy - Time Spent with Patient Total time spent providing and/or coordinating discharge services: - Discharge Medications Prescriptions: Metoprolol [Lopressor] 25 mg PO BID #60 tablet Home Medications: Amitriptyline [Elavil] 10 mg PO HS 05/05/17 [History] Aspirin [Lo-Dose Aspirin EC] 81 mg PO DAILY 05/05/17 [History] Atorvastatin [Lipitor] 40 mg PO HS 05/05/17 [History] Budesonide/Formoterol 160/4.5 [Symbicort 160/4.5] 2 puff IH BIDR PRN 05/05/17 [ History] Calcium Carbonate [Calcium] 600 mg PO DAILY 05/05/17 [History] Cholecalciferol (Vitamin D3) [Vitamin D3] 3,000 unit PO DAILY 05/05/17 [History] Cyclobenzaprine [Flexeril] 10 mg PO TID PRN 05/05/17 [History] Esomeprazole Magnesium [Nexium] 40 mg PO BID 05/05/17 [History] HYDROcodone/Acet 10/325 mg [[place] 10-325 mg] 1 tab PO Q6HR PRN 05/05/17 [History ] Lactobacillus Combination No.8 [Adult Probiotic] 2 tab PO DAILY 05/05/17 [ History] Pregabalin [Lyrica] 200 mg PO BID 05/05/17 [History] Spironolactone [Aldactone] 50 mg PO DAILY 05/05/17 [History] Vitamin E (Dl,Tocopheryl Acet) [Vitamin E] 800 unit PO DAILY 05/05/17 [History] Zolpidem [Ambien] 5 mg PO HS PRN 05/05/17 [History] Albuterol Neb [Proventil Neb] 2.5 mg IH TID 11/01/17 [History] Albuterol Sulfate [Proventil Hfa] 2 puff IH Q6H PRN 11/01/17 [History] Butalbital/Aspirin/Caffeine [Fiorinal 50-325-40 mg Capsule] 1 cap PO Q4H PRN 11/13 [History] Calcium Polycarbophil [Fiber Laxative] 625 mg PO DAILY PRN 11/01/17 [History] Clobetasol Propionate 0.05% [Temovate] 1 appl TP BID 11/01/17 [History] Diphenoxylate/Atropine [Lomotil 2.5 mg/0.025 mg] 1 tab PO QID 11/01/17 [History] Fluticasone Propionate Nasal [Flonase] 1 spr NS DAILY 11/01/17 [History] Magic Mouthwash [Magic Mouthwash BLM] 10 ml PO QID PRN 11/01/17 [History] Magnesium 250 mg PO DAILY 11/01/17 [History] Promethazine [Phenergan] 12.5 mg PO DAILY PRN 11/01/17 [History] Metoprolol [Lopressor] 25 mg PO BID #60 tablet 11/04/17 [Rx] Allergies/Adverse Reactions: 3 Allergy/AdvReac Type Severity Reaction Status Date / Time Penicillins [PCN] Allergy Hives Verified 11/01/17 16:32 sertraline [From Zoloft] Allergy Itching Verified 11/01/17 16:32 Sulfa (Sulfonamide Allergy Hives Verified 11/01/17 16:32 Antibiotics) guaifenesin [From Entex LA] AdvReac UNABLE TO Verified 11/01/17 16:32 URINATE phenylephrine [From Entex LA] AdvReac UNABLE TO Verified 11/01/17 16:32 URINATE phenylpropanolamine AdvReac UNABLE TO Verified 11/01/17 16:32 [From Entex LA] URINATE Verapamil [From Calan] AdvReac CAUSES Verified 11/01/17 16:32 SEIZURE tzanidine AdvReac Migraine Uncoded 11/01/17 16:32 Date of admission: 11/01/17 17:26 Primary care physician: Owen Reyes Jr, MD Consults: 11/01/17 18:58 Consult to Linen Clerk [CONS] Routine Reason for SW Consult: Please assess patient for possible home needs, home health, and insurance problems for continuation of medications. 11/01/17 18:59 Consult to Occupational Therapy [CONS] Routine Comment: Evaluate, develop and implement POC Reason for Consult: Patient has hx of MS and now presents w/CVA/TIA sx. Bilateral weakness in LEs. Hx of falls. Difficulty w/safe ambulation. Please assess patient for ambulation strength , safety, stability, and possible home assistive/ rehabilitation needs for post-discharge planning. Does patient have active BEDREST order?: Yes Is patient medically & hemodynamically stable?: Yes Patient assessed for mobility or mobilized this visit?: No 11/01/17 19:00 Consult to Physical Therapy [CONS] Routine Comment: Evaluate, develop and implement POC Reason for Consult: Patient has hx of MS and now presents w/CVA/TIA sx. Bilateral weakness in LEs. Hx of falls. Difficulty w/safe ambulation. Please assess patient for ambulation strength , safety, stability, and possible home assistive/ rehabilitation needs for post-discharge planning. Does patient have active BEDREST order?: Yes Is patient medically & hemodynamically stable?: Yes Patient assessed for mobility or mobilized this visit?: No 11/01/17 19:12 Consult to Neurology [CONS] Routine Consulting Provider: Neurology [facility] Reason for Consult: Patient has hx of MS and now presents w/TIA sx. Continues to have weakness in bilateral LEs. Pt. also reports she has not had her MS medication for 4 months d/t insurance lapse. NIHSS. CT of head shows no intracranial abnormality. Call Completed: Yes 11/01/17 20:55 Consult to Wound Care [CONS] Routine Reason for Consult: Patient has avulson of the toenail of left great toe. Please make recommendations for daily care. Call Completed: No 11/02/17 15:14 Consult to Podiatry [CONS] Routine Consulting Provider: [facility] Reason for Consult: S/P fall at home causing an avulsion tear of the left great toe nail - family request Podiatry consult Time Notified: 15:15 Call Completed: No Discharging clinician: Carolina Mcclelland Anticipated date of discharge: 11/04/17 - Constitutional Vitals: Temp Pulse Resp BP Pulse Ox 97.7 F 96 18 172/99 97 11/04/17 11:12 11/04/17 11:12 11/04/17 11:12 11/04/17 11:12 11/04/17 11:12 General appearance: Present: cooperative, A&O X 3, answers questions appropriately - Head Head exam: Present: atraumatic, normocephalic - Respiratory Respiratory exam: Present: CTAB. Absent: accessory muscle use, rales, rhonchi, wheezes - Cardiovascular Cardiovascular exam: Present: RRR, +S1, +S2. Absent: gallop, rubs - GI/Abdominal GI/Abdominal exam: Present: normal bowel sounds, soft, no peritoneal signs. Absent: distended, tenderness - Neurological Exam Neurological exam: Present: alert, oriented X3, reflexes normal, no focal deficits, strengths equal and symetr throughout - Patient Status Disposition: Home, Self-Care Condition: Good Functional capacity at discharge: uses cane/walker Overall status at discharge: patient is back to baseline - Ambulatory Orders Ambulatory Orders: Consult to Occupational Therapy [CONS] Time Frame: 1 Week, Facility: [facility], Location: Home Health Services Consult to Physical Therapy [CONS] Time Frame: 1 Week, Facility: [facility], Location: Home Health Services - Discharge Instructions Follow Up With: Owen Reyes Jr, MD [Primary Care Provider] - (please call monday to make a follow up appointment ) Additional Instructions: Please continue your home medications. Please reduce your metoprolol dose to 25 mg twice a day. Please follow-up with your primary care physician within a week. Please continue your home occupational and physical therapy. Please return for any new or worsening symptoms. - Diet and Activity Activity: ambulate only with your walker, increase activity as tolerated Diet: advance to your usual diet <Daphney Dawson - Last Filed: 11/04/17 15:22> Orders not resulted at time of discharge: Pending orders 11/05/17 04:00 Basic Metabolic Panel AM 0400 CBC [Complete Blood Count] [HEME] AM 0400 11/06/17 04:00 Basic Metabolic Panel AM 0400 CBC [Complete Blood Count] [HEME] AM 0400 11/07/17 04:00 Basic Metabolic Panel AM 0400 CBC [Complete Blood Count] [HEME] AM 0400 11/08/17 04:00 Basic Metabolic Panel AM 0400 CBC [Complete Blood Count] [HEME] AM 0400 Date of Encounter: 11/04/17 Hospital course: Ms. Aranda is a 67 year old female - Time Spent with Patient Total time spent providing and/or coordinating discharge services: Date of admission: 11/01/17 17:26 Primary care physician: Owen Reyes Jr, MD Consults: 11/01/17 18:58 Consult to Linen Clerk [CONS] Routine Reason for SW Consult: Please assess patient for possible home needs, home health, and insurance problems for continuation of medications. 11/01/17 18:59 Consult to Occupational Therapy [CONS] Routine Comment: Evaluate, develop and implement POC Reason for Consult: Patient has hx of MS and now presents w/CVA/TIA sx. Bilateral weakness in LEs. Hx of falls. Difficulty w/safe ambulation. Please assess patient for ambulation strength , safety, stability, and possible home assistive/ rehabilitation needs for post-discharge planning. Does patient have active BEDREST order?: Yes Is patient medically & hemodynamically stable?: Yes Patient assessed for mobility or mobilized this visit?: No 11/01/17 19:00 Consult to Physical Therapy [CONS] Routine Comment: Evaluate, develop and implement POC Reason for Consult: Patient has hx of MS and now presents w/CVA/TIA sx. Bilateral weakness in LEs. Hx of falls. Difficulty w/safe ambulation. Please assess patient for ambulation strength , safety, stability, and possible home assistive/ rehabilitation needs for post-discharge planning. Does patient have active BEDREST order?: Yes Is patient medically & hemodynamically stable?: Yes Patient assessed for mobility or mobilized this visit?: No 11/01/17 19:12 Consult to Neurology [CONS] Routine Consulting Provider: Neurology [facility] Reason for Consult: Patient has hx of MS and now presents w/TIA sx. Continues to have weakness in bilateral LEs. Pt. also reports she has not had her MS medication for 4 months d/t insurance lapse. NIHSS. CT of head shows no intracranial abnormality. Call Completed: Yes 11/01/17 20:55 Consult to Wound Care [CONS] Routine Reason for Consult: Patient has avulson of the toenail of left great toe. Please make recommendations for daily care. Call Completed: No 11/02/17 15:14 Consult to Podiatry [CONS] Routine Consulting Provider: Podiatry [facility] Reason for Consult: S/P fall at home causing an avulsion tear of the left great toe nail - family request Podiatry consult Time Notified: 15:15 Call Completed: No - Constitutional Vitals: Temp Pulse Resp BP Pulse Ox 97.7 F 96 18 172/99 97 11/04/17 11:12 11/04/17 11:12 11/04/17 11:12 11/04/17 11:12 11/04/17 11:12 - Attending Attestation I saw and examined this patient independently, and my medical decision making was reviewed with the Resident Physician on 2017. I agree with the documented findings, assessment and treatment plan as described in discharge summary.
--- NOTE | 2017-11-04 15:38 | Physician Discharge Referral ---
Home Health/Hosp Referral Info Transfer to: Home Health Provider in Charge Post Discharge: PCP - Diagnosis (1) Fall Priority: Primary Status: Acute (2) COPD (chronic obstructive pulmonary disease) Priority: Secondary Status: Chronic (3) Multiple sclerosis Priority: Secondary Status: Chronic (4) Aphasia Priority: Secondary Status: Resolved (5) HLD (hyperlipidemia) Priority: Secondary Status: Chronic (6) GERD (gastroesophageal reflux disease) Priority: Secondary Status: Chronic (7) Avulsion of toenail of left foot Priority: Secondary Status: Acute (8) TIA (transient ischemic attack) Priority: Secondary Status: Acute - Respiratory Orders Smoking Cessation: Smoking cessation has been advised. For more information, call the [place] Tobacco Quit Line at 8-364-FXVU-NOW. - Diet/Nutrition Diet/Nutrition Orders: Regular - Activity Activity Orders: Walker - Services Needed Following services are medically necessary services: Home Health Aide, Physical Therapy, Occupational Therapy - Transfer Medications Prescriptions: Metoprolol [Lopressor] 25 mg PO BID #60 tablet Home Medications: Amitriptyline [Elavil] 10 mg PO HS 05/05/17 [History] Aspirin [Lo-Dose Aspirin EC] 81 mg PO DAILY 05/05/17 [History] Atorvastatin [Lipitor] 40 mg PO HS 05/05/17 [History] Budesonide/Formoterol 160/4.5 [Symbicort 160/4.5] 2 puff IH BIDR PRN 05/05/17 [ History] Calcium Carbonate [Calcium] 600 mg PO DAILY 05/05/17 [History] Cholecalciferol (Vitamin D3) [Vitamin D3] 3,000 unit PO DAILY 05/05/17 [History] Cyclobenzaprine [Flexeril] 10 mg PO TID PRN 05/05/17 [History] Esomeprazole Magnesium [Nexium] 40 mg PO BID 05/05/17 [History] HYDROcodone/Acet 10/325 mg [[place] 10-325 mg] 1 tab PO Q6HR PRN 05/05/17 [History ] Lactobacillus Combination No.8 [Adult Probiotic] 2 tab PO DAILY 05/05/17 [ History] Pregabalin [Lyrica] 200 mg PO BID 05/05/17 [History] Spironolactone [Aldactone] 50 mg PO DAILY 05/05/17 [History] Vitamin E (Dl,Tocopheryl Acet) [Vitamin E] 800 unit PO DAILY 05/05/17 [History] Zolpidem [Ambien] 5 mg PO HS PRN 05/05/17 [History] Albuterol Neb [Proventil Neb] 2.5 mg IH TID 11/01/17 [History] Albuterol Sulfate [Proventil Hfa] 2 puff IH Q6H PRN 11/01/17 [History] Butalbital/Aspirin/Caffeine [Fiorinal 50-325-40 mg Capsule] 1 cap PO Q4H PRN 11/13 [History] Calcium Polycarbophil [Fiber Laxative] 625 mg PO DAILY PRN 11/01/17 [History] Clobetasol Propionate 0.05% [Temovate] 1 appl TP BID 11/01/17 [History] Diphenoxylate/Atropine [Lomotil 2.5 mg/0.025 mg] 1 tab PO QID 11/01/17 [History] Fluticasone Propionate Nasal [Flonase] 1 spr NS DAILY 11/01/17 [History] Magic Mouthwash [Magic Mouthwash BLM] 10 ml PO QID PRN 11/01/17 [History] Magnesium 250 mg PO DAILY 11/01/17 [History] Promethazine [Phenergan] 12.5 mg PO DAILY PRN 11/01/17 [History] Metoprolol [Lopressor] 25 mg PO BID #60 tablet 11/04/17 [Rx] Allergies/Adverse Reactions: 3 Allergy/AdvReac Type Severity Reaction Status Date / Time Penicillins [PCN] Allergy Hives Verified 11/01/17 16:32 sertraline [From Zoloft] Allergy Itching Verified 11/01/17 16:32 Sulfa (Sulfonamide Allergy Hives Verified 11/01/17 16:32 Antibiotics) guaifenesin [From Entex LA] AdvReac UNABLE TO Verified 11/01/17 16:32 URINATE phenylephrine [From Entex LA] AdvReac UNABLE TO Verified 11/01/17 16:32 URINATE phenylpropanolamine AdvReac UNABLE TO Verified 11/01/17 16:32 [From Entex LA] URINATE Verapamil [From Calan] AdvReac CAUSES Verified 11/01/17 16:32 SEIZURE tzanidine AdvReac Migraine Uncoded 11/01/17 16:32 Certification: Further, I certify that my clinical findings support that this patient is homebound (i.e. absences from home require considerable and taxing effort and are for medical reasons or mosque services or infrequently or short duration when for other reasons) because: Homebound Reason: Patient requires assistance of a person or device to safely leave home Attestation: My signature below is to certify that this patient is under my care and that I, or nurse practitioner, or a physician's life enrichment assistant working with me, has a face-to -face encounter with this patient.
== END 2017-11-04 16:03 | disposition home or self-care (01) ==
LOC: EMEROO 14:05 → 2NENU 14:05 → SUATTDRO 17:26 → 2NENU 18:17
PROVIDERS: ADMIT Internal Medicine; ATTEND Hospitalist

== ENCOUNTER 2021-08-10 13:45 | Inpatient (IN) ==
[2021-08-10] MEDS ORDERED: Metoclopramide 10 MG/2 ML VIAL IVP ONE (14:14)
[2021-08-10] MEDS ORDERED: 0.9 % Sodium Chloride 500 ML IVC ONE ×2 (14:15→15:51)
[2021-08-10 14:46] LABS: INR 1.2; Prothrombin Time 13.5 Seconds (9.4-12.1)
[2021-08-10 14:49] LABS: Activated Partial Thrombo Time 24.3 Seconds (26.0-36.0)
[2021-08-10 16:06] LABS: Basophils % 0.2 %; Hematocrit 39.1 % (35.3-44.9); Hemoglobin 12.7 g/dL (11.5-15.4); Immature Granulocytes % 0.7 % (0-4); Immature Platelets 5.1 % (1.1-6.1); Lymphocytes # 1.8 K/mcL (0.6-4.6); Lymphocytes % 12.6 %; Mean Corpuscular HGB Conc 32.5 g/dL (31.6-35.5); Mean Corpuscular Hemoglobin 29.1 pg (28.0-33.3); Mean Corpuscular Volume 89.7 fL (83.0-100.0); Monocytes # 0.7 K/mcL (0.0-1.3); Monocytes % 4.4 %; Platelet Count 141 K/mcL (140-400); Red Blood Count 4.36 M/mcL (3.82-4.97); Red Cell Distribution Width 14.1 % (11.5-14.5); Segmented Neutrophils % 82.1 %; White Blood Count 14.7 K/mcL (4.3-11.1)
[2021-08-10 16:16] LABS: Alanine Aminotransferase 16 Units/L (7-52); Albumin 3.3 g/dL (3.5-5.7); Albumin/Globulin Ratio 1.2 (1.1-2.2); Alkaline Phosphatase 74 Units/L (34-104); Aspartate Amino Transferase 20 Units/L (13-39); BUN/Creatinine Ratio 25 (6-26); Bilirubin,Total 0.8 mg/dL (0.3-1.0); Blood Urea Nitrogen 27 mg/dL (8-23); Calcium 8.3 mg/dL (8.6-10.3); Carbon Dioxide 26 mEq/L (23-29); Chloride 104 mEq/L (98-107); Globulin 2.7 g/dL (2.4-3.5); Glucose 156 mg/dL (70-105); Magnesium 1.3 mg/dL (1.6-2.6); Osmolality,Calculated 298 (280-300); Potassium 4.1 mEq/L (3.5-5.1); Sodium 140 mEq/L (136-145); Troponin I < 0.03 ng/mL (< 0.04); eGFR For African Americans > 60 (> 60); eGFR For Non-African Americans 51 (> 60)
[2021-08-10] MEDS ORDERED: Ketorolac 30 MG/ML VIAL IVP ONE (16:28)
[2021-08-10] MEDS ORDERED: Vancomycin 2,000 MG/520 ML IV.SOLN IVPB ONE (16:58)
[2021-08-10 17:50] LABS: Bilirubin,Urine Negative (Negative); Blood,Urine Negative (Negative); Clarity,Urine Clear (Clear); Color,Urine Yellow (Yellow); Glucose,Urine (UA) Normal (Normal); Ketones,Urine Trace mg/dL (Negative); Leukocyte Esterase,Urine Negative (Negative); Nitrite,Urine Negative (Negative); PH,Urine 6.5 pH Units (5.0-8.0); Protein,Urine Trace mg/dL (Neg-Trace); Specific Gravity,Urine 1.026 (1.010-1.025)
[2021-08-10] MEDS ORDERED: Magnesium Sulfate 1 GM/102 ML PIGGYBACK IVPB ONE (18:42)
[2021-08-10 20:10] LABS: Influenza A PCR Negative (Negative); Influenza B PCR Negative (Negative); Resp. Syncytial Virus PCR Negative (Negative)
[2021-08-10 20:11] LABS: SARS-CoV-2 by PCR (In House) Negative (Negative)
[2021-08-10] MEDS ORDERED: Melatonin 3 MG TABLET PO PRN (20:23)
[2021-08-10] MEDS ORDERED: Ondansetron 4 MG/2 ML VIAL IVP PRN (20:23)
[2021-08-10] MEDS ORDERED: Naloxone 0.4 MG/ML INJ IVP PRN (20:23)
[2021-08-10] MEDS ORDERED: Acetaminophen 325 MG TABLET PO PRN (20:23)
[2021-08-10] MEDS ORDERED: 0.9 % Sodium Chloride 1,000 ML IVC ONE ×2 (20:24→22:16)
[2021-08-10] MEDS ORDERED: Dextrose 4 GM Chewable Tablets PO PRN ×2 (22:16)
[2021-08-10] MEDS ORDERED: D5% in Water 1,000 ML IVC PRN (22:16)
[2021-08-10] MEDS ORDERED: *HR* Dextrose 50 % in Water (Syg) 50 ML SYRINGE IVP PRN (22:16)
[2021-08-11] MEDS ORDERED: Cefepime HCl 2,000 MG in 0.9 % Sodium Chloride 10 ML IVP SCH
[2021-08-11] MEDS ORDERED: *HR* Metoprolol 5 MG/5 ML VIAL IVP ONE (00:17)
[2021-08-11] MEDS: Meropenem 1,000 MG in 0.9 % Sodium Chloride 20 ML IVP SCH ×2 (00:46→09:02)
[2021-08-11 00:57] LABS: Troponin I 0.03 ng/mL (< 0.04)
[2021-08-11] MEDS ORDERED: 0.9 % Sodium Chloride 1,000 ML IVC ONE (06:37)
[2021-08-11] MEDS: Insulin LISPRO 300 UNITS/3 ML VIAL SUBQ SCH ×4 (09:02→21:36)
[2021-08-11] MEDS: Aspirin Enteric Coated 81 MG Tablet PO SCH (09:03)
[2021-08-11 09:17] LABS: A.calcoaceticus-baumannii cplx Not Detected (Not Detect); Bacteroides fragilis by PCR Not Detected (Not Detect); Candida albicans by PCR Not Detected (Not Detect); Candida auris by PCR Not Detected (Not Detect); Candida glabrata by PCR Not Detected (Not Detect); Candida krusei by PCR Not Detected (Not Detect); Candida parapsilosis by PCR Not Detected (Not Detect); Candida tropicalis by PCR Not Detected (Not Detect); Crypto. neoformans/gattii PCR Not Detected (Not Detect); Enterobacter cloacae Cmplx PCR Not Detected (Not Detect); Enterobacterales by PCR Not Detected (Not Detect); Enterococcus faecalis by PCR Not Detected (Not Detect); Enterococcus faecium by PCR Not Detected (Not Detect); Escherichia coli by PCR Not Detected (Not Detect); Klebs. pneumoniae group by PCR Not Detected (Not Detect); Klebsiella aerogenes by PCR Not Detected (Not Detect); Klebsiella oxytoca by PCR Not Detected (Not Detect); Proteus by PCR Not Detected (Not Detect); Pseudomonas aeruginosa by PCR Not Detected (Not Detect); Salmonella species by PCR Not Detected (Not Detect); Serratia marcescens by PCR Not Detected (Not Detect); Staph epidermidis by PCR Not Detected (Not Detect); Staph lugdunensis by PCR Not Detected (Not Detect); Staphylococcus aureus by PCR Not Detected (Not Detect); Staphylococcus by PCR Not Detected (Not Detect); Stenotrophomonas maltophilia Not Detected (Not Detect); Streptococcus agalactiae(B)PCR Not Detected (Not Detect); Streptococcus by PCR DETECTED (Not Detect); Streptococcus pneumoniae PCR Not Detected (Not Detect); Streptococcus pyogenes (A) PCR Not Detected (Not Detect)
[2021-08-11] MEDS ORDERED: Gadolinium Contrast Agent (WT Based) IV PRN (11:28)
[2021-08-11 14:37] LABS: Red Blood Cell,CSF < 2000 RBC/mcL
[2021-08-11 14:43] LABS: Appearance,CSF Clear (Clear)
[2021-08-11] MEDS: *HR* OxyCODONE/APAP 5/325 TABLET PO PRN (15:14)
[2021-08-11 15:27] LABS: Glucose,CSF 91 mg/dL (40-70); Total Protein,CSF 87 mg/dL (15-45)
[2021-08-11] MEDS ORDERED: *HR* LORazepam 2 MG/ML VIAL IVP PRN (15:30)
[2021-08-11 16:06] LABS: Estimated Average Glucose 131 mg/dl; Hemoglobin A1C 6.2 %
[2021-08-11 16:55] LABS: Basophils,CSF 0 %; Eosinophils,CSF 0 %; Monocytes,CSF 0 %
[2021-08-11] MEDS ORDERED: Vancomycin 1,750 MG in 0.9 % Sodium Chloride 250 ML IVPB SCH (17:00)
[2021-08-11] MEDS: Pantoprazole 40 MG VIAL IVP SCH (17:29)
[2021-08-11] MEDS: *HR* Heparin 5,000 UNIT/ML VIAL SQ SCH (18:48)
[2021-08-11] MEDS: Vancomycin 1,750 MG/517.5 ML IV.SOLN IVPB SCH (19:54)
[2021-08-11] MEDS: Acyclovir 500 MG in D5% in Water 100 ML IVPB SCH (21:36)
[2021-08-12] MEDS: Vancomycin 1,750 MG/517.5 ML IV.SOLN IVPB SCH ×2 (03:24→17:21)
[2021-08-12] MEDS: Acyclovir 500 MG in D5% in Water 100 ML IVPB SCH ×2 (05:39→12:12)
[2021-08-12] MEDS: *HR* Heparin 5,000 UNIT/ML VIAL SQ SCH (05:40)
[2021-08-12 06:04] LABS: Basophils % 0.3 %; Eosinophils # 0.1 K/mcL (0.0-0.6); Eosinophils % 0.9 %; Hematocrit 33.3 % (35.3-44.9); Lymphocytes # 1.2 K/mcL (0.6-4.6); Lymphocytes % 8.6 %; Mean Corpuscular Hemoglobin 28.9 pg (28.0-33.3); Mean Corpuscular Volume 87.4 fL (83.0-100.0); Mean Platelet Volume 12.2 fL (9.4-12.4); Monocytes # 0.7 K/mcL (0.0-1.3); Monocytes % 4.8 %; Neutrophils # 11.7 K/mcL (1.6-8.9); Nucleated Red Blood Cells 0.1 /100 WBC (0); Platelet Count 100 K/mcL (140-400); Red Blood Count 3.81 M/mcL (3.82-4.97); Red Cell Distribution Width 14.1 % (11.5-14.5); Segmented Neutrophils % 83.4 %
[2021-08-12 06:10] LABS: INR 1.2; Prothrombin Time 13.3 Seconds (9.4-12.1)
[2021-08-12 06:34] LABS: Platelet Estimate Slight Decrease (Normal)
[2021-08-12] MEDS: Pantoprazole 40 MG VIAL IVP SCH (08:05)
[2021-08-12] MEDS: Aspirin Enteric Coated 81 MG Tablet PO SCH (08:06)
[2021-08-12] MEDS: Insulin LISPRO 300 UNITS/3 ML VIAL SUBQ SCH ×4 (08:14→21:28)
[2021-08-12] MEDS: *HR* OxyCODONE/APAP 5/325 TABLET PO PRN ×2 (08:14→17:43)
[2021-08-12] MEDS ORDERED: Perflutren Lipid Microsphere 1.3 ML in 0.9 % Sodium Chloride 8.7 ML IVP PRN (08:15)
[2021-08-12 08:34] LABS: BUN/Creatinine Ratio 41 (6-26); Blood Urea Nitrogen 31 mg/dL (8-23); Calcium 7.6 mg/dL (8.6-10.3); Carbon Dioxide 27 mEq/L (23-29); Chloride 110 mEq/L (98-107); Glucose 253 mg/dL (70-105); Magnesium 1.9 mg/dL (1.6-2.6); Osmolality,Calculated 303 (280-300); Potassium 3.7 mEq/L (3.5-5.1); Sodium 139 mEq/L (136-145); eGFR For African Americans > 60 (> 60); eGFR For Non-African Americans > 60 (> 60)
[2021-08-12] MEDS ORDERED: Budesonide/Formoterol 160/4.5 1 PUFF INH IH PRN (15:02)
[2021-08-12] MEDS: cefTRIAXone 2,000 MG in 0.9 % Sodium Chloride 20 ML IVP SCH (17:21)
[2021-08-12] MEDS: Pregabalin 50 MG CAPSULE PO SCH (20:35)
[2021-08-13 03:16] LABS: Basophils % 0.2 %; Hematocrit 33.2 % (35.3-44.9); Immature Granulocytes % 2.6 % (0-4); Lymphocytes # 1.2 K/mcL (0.6-4.6); Lymphocytes % 9.3 %; Mean Corpuscular HGB Conc 33.1 g/dL (31.6-35.5); Mean Corpuscular Hemoglobin 29.2 pg (28.0-33.3); Mean Corpuscular Volume 88.1 fL (83.0-100.0); Mean Platelet Volume 12.2 fL (9.4-12.4); Monocytes # 0.7 K/mcL (0.0-1.3); Monocytes % 5.6 %; Neutrophils # 10.8 K/mcL (1.6-8.9); Nucleated Red Blood Cells 0.2 /100 WBC (0); Platelet Count 122 K/mcL (140-400); Red Blood Count 3.77 M/mcL (3.82-4.97); Red Cell Distribution Width 14.1 % (11.5-14.5); Segmented Neutrophils % 82.3 %; White Blood Count 13.1 K/mcL (4.3-11.1)
[2021-08-13 03:36] LABS: BUN/Creatinine Ratio 43 (6-26); Blood Urea Nitrogen 32 mg/dL (8-23); Calcium 8.2 mg/dL (8.6-10.3); Carbon Dioxide 23 mEq/L (23-29); Chloride 111 mEq/L (98-107); Glucose 229 mg/dL (70-105); Osmolality,Calculated 306 (280-300); Potassium 3.5 mEq/L (3.5-5.1); Sodium 141 mEq/L (136-145); eGFR For African Americans > 60 (> 60); eGFR For Non-African Americans > 60 (> 60)
[2021-08-13 04:02] LABS: Platelet Estimate Slight Decrease (Normal)
[2021-08-13] MEDS: Vancomycin 1,750 MG/517.5 ML IV.SOLN IVPB SCH (05:14)
[2021-08-13] MEDS: Pregabalin 50 MG CAPSULE PO SCH ×2 (08:15→19:27)
[2021-08-13] MEDS: Pantoprazole 40 MG VIAL IVP SCH (08:15)
[2021-08-13] MEDS: Aspirin Enteric Coated 81 MG Tablet PO SCH (08:15)
[2021-08-13] MEDS: Insulin LISPRO 300 UNITS/3 ML VIAL SUBQ SCH ×4 (08:16→21:26)
[2021-08-13] MEDS: Budesonide/Formoterol 160/4.5 1 PUFF INH IH SCH ×2 (11:44→19:54)
[2021-08-13] MEDS ORDERED: Vancomycin 1,500 MG/265 ML IV.SOLN IVPB SCH (16:00)
[2021-08-13] MEDS ORDERED: Vancomycin 1,250 MG/262.5 ML IV.SOLN IVPB SCH (16:00)
[2021-08-13] MEDS ORDERED: calcium polycarbophiL 625 MG TABLET PO PRN (16:19)
[2021-08-13] MEDS ORDERED: hydrOXYzine pamoate 25 MG CAPSULE PO PRN (16:19)
[2021-08-13] MEDS: cefTRIAXone 2,000 MG in 0.9 % Sodium Chloride 20 ML IVP SCH (16:29)
[2021-08-13] MEDS: *HR* OxyCODONE/APAP 5/325 TABLET PO PRN (19:28)
[2021-08-13] MEDS: lamoTRIgine 25 MG TABLET PO SCH (21:23)
[2021-08-14] MEDS: *HR* OxyCODONE/APAP 5/325 TABLET PO PRN ×3 (02:18→19:50)
[2021-08-14 03:20] LABS: Basophils % 0.5 %; Hematocrit 32.7 % (35.3-44.9); Hemoglobin 10.6 g/dL (11.5-15.4); Immature Granulocytes % 1.6 % (0-4); Lymphocytes # 2.2 K/mcL (0.6-4.6); Lymphocytes % 26.5 %; Mean Corpuscular HGB Conc 32.4 g/dL (31.6-35.5); Mean Corpuscular Hemoglobin 28.6 pg (28.0-33.3); Mean Corpuscular Volume 88.4 fL (83.0-100.0); Mean Platelet Volume 12.2 fL (9.4-12.4); Monocytes # 0.9 K/mcL (0.0-1.3); Monocytes % 10.2 %; Neutrophils # 5.1 K/mcL (1.6-8.9); Platelet Count 120 K/mcL (140-400); Red Cell Distribution Width 14.3 % (11.5-14.5); Segmented Neutrophils % 61.2 %; White Blood Count 8.4 K/mcL (4.3-11.1)
[2021-08-14 03:37] LABS: BUN/Creatinine Ratio 42 (6-26); Blood Urea Nitrogen 31 mg/dL (8-23); Carbon Dioxide 24 mEq/L (23-29); Chloride 110 mEq/L (98-107); Glucose 227 mg/dL (70-105); Osmolality,Calculated 304 (280-300); Potassium 3.6 mEq/L (3.5-5.1); Sodium 140 mEq/L (136-145); eGFR For African Americans > 60 (> 60); eGFR For Non-African Americans > 60 (> 60)
[2021-08-14 03:52] LABS: Thyroid Stimulating Hormone 0.395 mcIU/mL (0.340-5.600)
[2021-08-14 04:02] LABS: Folate 19.2 ng/mL (3.0-16.0)
[2021-08-14] MEDS: Insulin LISPRO 300 UNITS/3 ML VIAL SUBQ SCH ×4 (08:45→22:23)
[2021-08-14] MEDS: Lactobacillus 1 EACH CAP.SPRINK PO SCH (08:46)
[2021-08-14] MEDS: Insulin DETEMIR 100 UNIT/ML X5UNITS SUBQ SCH (08:46)
[2021-08-14] MEDS: Aspirin Enteric Coated 81 MG Tablet PO SCH (08:46)
[2021-08-14] MEDS: lamoTRIgine 25 MG TABLET PO SCH ×2 (08:46→22:23)
[2021-08-14] MEDS: Pregabalin 50 MG CAPSULE PO SCH ×2 (08:46→22:24)
[2021-08-14] MEDS: Fluticasone Propionate Nasal 50 MCG/SPRAY BOTTLE NS SCH (08:48)
[2021-08-14] MEDS: Budesonide/Formoterol 160/4.5 1 PUFF INH IH SCH ×2 (11:02→20:07)
[2021-08-14] MEDS: cefTRIAXone 2,000 MG in 0.9 % Sodium Chloride 20 ML IVP SCH (15:36)
[2021-08-14] MEDS: Acetaminophen 325 MG TABLET PO PRN (19:50)
[2021-08-15 05:43] LABS: Segmented Neutrophils % 55.9 %
[2021-08-15 05:45] LABS: Basophils % 0.3 %; Eosinophils # 0.1 K/mcL (0.0-0.6); Eosinophils % 0.6 %; Hematocrit 31.4 % (35.3-44.9); Hemoglobin 10.3 g/dL (11.5-15.4); Immature Granulocytes % 1.5 % (0-4); Immature Platelets 7.4 % (1.1-6.1); Lymphocytes # 3.1 K/mcL (0.6-4.6); Lymphocytes % 30.9 %; Mean Corpuscular HGB Conc 32.8 g/dL (31.6-35.5); Mean Corpuscular Hemoglobin 28.9 pg (28.0-33.3); Mean Corpuscular Volume 88.2 fL (83.0-100.0); Mean Platelet Volume 11.6 fL (9.4-12.4); Monocytes # 1.1 K/mcL (0.0-1.3); Monocytes % 10.8 %; Platelet Count 123 K/mcL (140-400); Red Blood Count 3.56 M/mcL (3.82-4.97); Red Cell Distribution Width 14.2 % (11.5-14.5); White Blood Count 10.1 K/mcL (4.3-11.1)
[2021-08-15 05:49] LABS: Neutrophils # 5.7 K/mcL (1.6-8.9)
[2021-08-15 06:02] LABS: BUN/Creatinine Ratio 35 (6-26); Blood Urea Nitrogen 24 mg/dL (8-23); Calcium 7.9 mg/dL (8.6-10.3); Carbon Dioxide 26 mEq/L (23-29); Chloride 110 mEq/L (98-107); Glucose 172 mg/dL (70-105); Osmolality,Calculated 302 (280-300); Potassium 3.5 mEq/L (3.5-5.1); Sodium 142 mEq/L (136-145); eGFR For African Americans > 60 (> 60); eGFR For Non-African Americans > 60 (> 60)
[2021-08-15] MEDS: Budesonide/Formoterol 160/4.5 1 PUFF INH IH SCH ×2 (08:16→21:15)
[2021-08-15] MEDS: Insulin DETEMIR 100 UNIT/ML X5UNITS SUBQ SCH (09:08)
[2021-08-15] MEDS: Aspirin Enteric Coated 81 MG Tablet PO SCH (09:09)
[2021-08-15] MEDS: lamoTRIgine 25 MG TABLET PO SCH ×2 (09:09→20:48)
[2021-08-15] MEDS: Lactobacillus 1 EACH CAP.SPRINK PO SCH (09:09)
[2021-08-15] MEDS: Acetaminophen 325 MG TABLET PO PRN ×2 (09:09→19:32)
[2021-08-15] MEDS: Insulin LISPRO 300 UNITS/3 ML VIAL SUBQ SCH ×4 (09:10→20:37)
[2021-08-15] MEDS: Pregabalin 50 MG CAPSULE PO SCH ×2 (09:10→20:48)
[2021-08-15] MEDS: *HR* OxyCODONE/APAP 5/325 TABLET PO PRN ×2 (09:10→19:32)
[2021-08-15] MEDS: Fluticasone Propionate Nasal 50 MCG/SPRAY BOTTLE NS SCH (09:11)
[2021-08-15] MEDS: cefTRIAXone 2,000 MG in 0.9 % Sodium Chloride 20 ML IVP SCH (16:11)
[2021-08-16 02:45] VITALS: O2SAT 97
[2021-08-16] MEDS: Budesonide/Formoterol 160/4.5 1 PUFF INH IH SCH (08:13)
[2021-08-16] MEDS: Insulin LISPRO 300 UNITS/3 ML VIAL SUBQ SCH ×2 (08:16→12:49)
[2021-08-16] MEDS: lamoTRIgine 25 MG TABLET PO SCH (08:48)
[2021-08-16] MEDS: Lactobacillus 1 EACH CAP.SPRINK PO SCH (08:48)
[2021-08-16] MEDS: Aspirin Enteric Coated 81 MG Tablet PO SCH (08:49)
[2021-08-16] MEDS: Insulin DETEMIR 100 UNIT/ML X5UNITS SUBQ SCH (08:49)
[2021-08-16] MEDS: Pregabalin 50 MG CAPSULE PO SCH (08:49)
[2021-08-16] MEDS: Fluticasone Propionate Nasal 50 MCG/SPRAY BOTTLE NS SCH (08:49)
[2021-08-16] MEDS: *HR* OxyCODONE/APAP 5/325 TABLET PO PRN ×2 (08:51→18:16)
[2021-08-16] MEDS: Acetaminophen 325 MG TABLET PO PRN ×2 (08:51→18:16)
[2021-08-16 12:59] LABS: Influenza A PCR Negative (Negative); Influenza B PCR Negative (Negative); Resp. Syncytial Virus PCR Negative (Negative)
[2021-08-16 13:00] LABS: SARS-CoV-2 by PCR (In House) Negative (Negative)
[2021-08-16] MEDS: cefTRIAXone 2,000 MG in 0.9 % Sodium Chloride 20 ML IVP SCH (16:06)
[2021-08-16 16:21] VITALS: BP 132/65; PULSE 80; TEMP 97.8
== END 2021-08-16 18:20 | disposition other institution (70) | DRG 871 ==
LOC: EMEROOARM 13:45 → 3ANU 13:45 → SUATTDRO 19:31 → 3ANU 20:13
PROVIDERS: ADMIT Family Medicine; ATTEND Internal Medicine

== ENCOUNTER 2021-09-28 20:38 | Inpatient (IN) ==
[2021-09-28] MEDS ORDERED: Isovue-370 500 ML BOTTLE IVP ONE ×2 (20:44→21:11)
[2021-09-28] MEDS ORDERED: Ondansetron 4 MG/2 ML VIAL IVP ONE (20:55)
[2021-09-28] MEDS ORDERED: *HR* FentaNYL (PF) 100 MCG/2 ML VIAL IVP ONE ×2 (21:11→23:27)
[2021-09-28] MEDS ORDERED: 0.9 % Sodium Chloride 500 ML ONE (21:14)
[2021-09-28] MEDS ORDERED: Vancomycin 1,750 MG/517.5 ML IV.SOLN IVPB ONE (21:20)
[2021-09-28] MEDS ORDERED: MetroNIDAZOLE 500 MG/100 ML 500 MG/100 ML BAG IVPB ONE (21:21)
[2021-09-28 21:23] LABS: Basophils # 0.1 K/mcL (0.0-0.2); Basophils % 0.4 %; Eosinophils # 0.2 K/mcL (0.0-0.6); Eosinophils % 1.1 %; Hematocrit 40.7 % (35.3-44.9); Hemoglobin 13.3 g/dL (11.5-15.4); Immature Granulocytes % 0.6 % (0-4); Lymphocytes % 15.4 %; Mean Corpuscular HGB Conc 32.7 g/dL (31.6-35.5); Mean Corpuscular Hemoglobin 29.7 pg (28.0-33.3); Mean Corpuscular Volume 90.8 fL (83.0-100.0); Mean Platelet Volume 11.5 fL (9.4-12.4); Monocytes # 0.6 K/mcL (0.0-1.3); Monocytes % 4.3 %; Neutrophils # 10.2 K/mcL (1.6-8.9); Platelet Count 199 K/mcL (140-400); Red Blood Count 4.48 M/mcL (3.82-4.97); Red Cell Distribution Width 14.2 % (11.5-14.5); Segmented Neutrophils % 78.2 %; White Blood Count 13.1 K/mcL (4.3-11.1)
[2021-09-28 21:30] LABS: Prothrombin Time 11.6 Seconds (9.4-12.1)
[2021-09-28 21:43] LABS: Albumin 3.5 g/dL (3.5-5.7); Albumin/Globulin Ratio 1.2 (1.1-2.2); Bilirubin,Direct 0.2 mg/dL (0.0-0.2); Bilirubin,Indirect 0.4 mg/dL (0.0-1.0); Bilirubin,Total 0.6 mg/dL (0.3-1.0); Calcium 8.3 mg/dL (8.6-10.3); Globulin 2.9 g/dL (2.4-3.5); Potassium 4.7 mEq/L (3.5-5.1); Total Protein 6.4 g/dL (6.4-8.9)
[2021-09-28 21:54] LABS: Thyroid Stimulating Hormone 1.836 mcIU/mL (0.340-5.600)
[2021-09-28] MEDS ORDERED: 0.9 % Sodium Chloride 500 ML IVC ONE (21:54)
[2021-09-28 22:13] LABS: Influenza A PCR Negative (Negative); Influenza B PCR Negative (Negative); Resp. Syncytial Virus PCR Negative (Negative)
[2021-09-28 22:16] LABS: SARS-CoV-2 by PCR (In House) Negative (Negative)
[2021-09-28] MEDS ORDERED: Cefepime HCl 1,000 MG in 0.9 % Sodium Chloride Mini Bag 100 ML IVPB ONE (23:00)
[2021-09-29] MEDS ORDERED: 0.9 % Sodium Chloride 1,000 ML IVC ONE ×3 (00:06→08:25)
[2021-09-29] MEDS ORDERED: Ondansetron 4 MG/2 ML VIAL IVP PRN (01:38)
[2021-09-29] MEDS ORDERED: *HR* Promethazine 25 MG/ML VIAL IM PRN (01:38)
[2021-09-29] MEDS ORDERED: Naloxone 0.4 MG/ML INJ IVP PRN (01:38)
[2021-09-29] MEDS ORDERED: Melatonin 3 MG TABLET PO PRN (01:38)
[2021-09-29] MEDS: 0.9 % Sodium Chloride 1,000 ML IVC SCH ×2 (02:35→05:51)
[2021-09-29] MEDS ORDERED: *HR* Dextrose 50 % in Water (Syg) 50 ML SYRINGE IVP PRN (03:00)
[2021-09-29] MEDS ORDERED: Dextrose 4 GM Chewable Tablets PO PRN ×2 (03:00)
[2021-09-29] MEDS ORDERED: D5% in Water 1,000 ML IVC PRN (03:00)
[2021-09-29] MEDS: Vancomycin Oral Soln 125 MG/2.5 ML UDC PO SCH ×2 (03:24→08:37)
[2021-09-29] MEDS: MetroNIDAZOLE 500 MG/100 ML 500 MG/100 ML BAG IVPB SCH ×4 (05:38→23:18)
[2021-09-29] MEDS: *HR* HYDROcodone/Acet 5/325 mg TABLET PO PRN ×2 (05:39→15:07)
[2021-09-29 06:01] LABS: Basophils % 0.2 %; Hematocrit 37.4 % (35.3-44.9); Mean Corpuscular Volume 91.4 fL (83.0-100.0); Red Blood Count 4.09 M/mcL (3.82-4.97); White Blood Count 12.4 K/mcL (4.3-11.1)
[2021-09-29 06:03] LABS: Eosinophils % 0.1 %; Immature Granulocytes % 0.5 % (0-4); Immature Platelets 7.8 % (1.1-6.1); Lymphocytes # 1.5 K/mcL (0.6-4.6); Lymphocytes % 11.8 %; Mean Corpuscular HGB Conc 32.1 g/dL (31.6-35.5); Mean Corpuscular Hemoglobin 29.3 pg (28.0-33.3); Mean Platelet Volume 12.1 fL (9.4-12.4); Monocytes # 1.3 K/mcL (0.0-1.3); Monocytes % 10.2 %; Neutrophils # 9.6 K/mcL (1.6-8.9); Platelet Count 120 K/mcL (140-400); Red Cell Distribution Width 14.5 % (11.5-14.5); Segmented Neutrophils % 77.2 %
[2021-09-29 06:08] LABS: INR 1.2
[2021-09-29 06:19] LABS: Calcium 7.5 mg/dL (8.6-10.3); Magnesium 1.6 mg/dL (1.6-2.6); Potassium 4.4 mEq/L (3.5-5.1)
[2021-09-29] MEDS: cefTRIAXone 1,000 MG in Water for inj. (sterile) 10 ML IVP SCH (08:24)
[2021-09-29] MEDS: Aspirin Enteric Coated 81 MG Tablet PO SCH (08:25)
[2021-09-29] MEDS: Insulin LISPRO 300 UNITS/3 ML VIAL SUBQ SCH ×3 (08:26→18:13)
[2021-09-29] MEDS ORDERED: Albumin 25% 25gram/100mL 25 GM/100 ML IV.SOLN IVPB ONE (09:18)
[2021-09-29 09:59] LABS: Adenovirus F 40/41 PCR Not detected (Not detect); Astrovirus PCR Not detected (Not detect); C.difficile Toxin A/B Gene PCR Not detected (Not detect); Campylobacter by PCR Not detected (Not detect); Cryptosporidium by PCR Not detected (Not detect); Cyclospora cayetanensis PCR Not detected (Not detect); Entamoeba histolytica PCR Not detected (Not detect); Enteroaggregative E.coli(EAEC) Not detected (Not detect); Enteropathogenic E.coli(EPEC) Not detected (Not detect); Enterotoxigenic E.coli (ETEC) Not detected (Not detect); Giardia lamblia PCR Not detected (Not detect); Norovirus GI/GII PCR Not detected (Not detect); Plesiomonas shigelloides PCR Not detected (Not detect); Rotavirus A PCR Not detected (Not detect); Salmonella PCR Not detected (Not detect); Sapovirus PCR Not detected (Not detect); Shig/EnteroinvasiveE coli EIEC Not detected (Not detect); Shigalike tox-prod E coli STEC Not detected (Not detect); Vibrio PCR Not detected (Not detect); Vibrio cholerae PCR Not detected (Not detect); Yersinia enterocolitica PCR Not detected (Not detect)
[2021-09-29] MEDS ORDERED: Budesonide/Formoterol 160/4.5 1 PUFF INH IH PRN (10:27)
[2021-09-29] MEDS: Norepinephrine 4 MG/254 ML IV.SOLN IVC SCH ×3 (10:30→21:23)
[2021-09-29 13:28] LABS: Bilirubin,Urine Negative (Negative); Blood,Urine Negative (Negative); Clarity,Urine Clear (Clear); Color,Urine Yellow (Yellow); Glucose,Urine (UA) Normal (Normal); Ketones,Urine Trace mg/dL (Negative); Leukocyte Esterase,Urine Negative (Negative); Nitrite,Urine Negative (Negative); PH,Urine 5.5 pH Units (5.0-8.0); Protein,Urine Trace mg/dL (Neg-Trace); Specific Gravity,Urine > 1.030 (1.010-1.025); Urobilinogen,Urine Normal (Normal)
[2021-09-29] MEDS: Acetaminophen 325 MG TABLET PO PRN (15:51)
[2021-09-29 17:43] LABS: Hematocrit 30.1 % (35.3-44.9); Mean Corpuscular HGB Conc 32.2 g/dL (31.6-35.5); Mean Corpuscular Hemoglobin 29.2 pg (28.0-33.3); Mean Corpuscular Volume 90.7 fL (83.0-100.0); Mean Platelet Volume 11.9 fL (9.4-12.4); Platelet Count 125 K/mcL (140-400); Red Blood Count 3.32 M/mcL (3.82-4.97); Red Cell Distribution Width 14.8 % (11.5-14.5); White Blood Count 11.7 K/mcL (4.3-11.1)
[2021-09-29] MEDS: Albumin Human 5% 12.5 GM/250 ML IV.SOLN IVC SCH ×2 (17:45→18:20)
[2021-09-29 17:52] LABS: Hemoglobin 9.7 g/dL (11.5-15.4)
[2021-09-29 18:03] LABS: Albumin 2.8 g/dL (3.5-5.7); Albumin/Globulin Ratio 1.6 (1.1-2.2); Bilirubin,Direct 0.1 mg/dL (0.0-0.2); Bilirubin,Indirect 0.3 mg/dL (0.0-1.0); Bilirubin,Total 0.4 mg/dL (0.3-1.0); Calcium 6.8 mg/dL (8.6-10.3); Globulin 1.8 g/dL (2.4-3.5); Magnesium 1.5 mg/dL (1.6-2.6); Phosphorous 4.7 mg/dL (2.7-4.5); Potassium 3.9 mEq/L (3.5-5.1); Total Protein 4.6 g/dL (6.4-8.9)
[2021-09-29 18:28] LABS: Basophils # 0.2 K/mcL (0.0-0.2); Lymphocytes # 1.2 K/mcL (0.6-4.6); Monocytes # 0.2 K/mcL (0.0-1.3); Neutrophils # 10.1 K/mcL (1.6-8.9)
[2021-09-29 18:29] LABS: Hypochromasia Present (Not Present); Microcytosis Present (Not Present); Platelet Estimate Normal (Normal)
[2021-09-29] MEDS: Potassium Chloride 40 MEQ/200 ML BAG IVPB PRN (20:23)
[2021-09-29] MEDS: Calcium Gluconate 1gm/50mL 1 GM/50 ML BAG IVPB PRN ×2 (20:23→21:30)
[2021-09-29] MEDS ORDERED: Insulin LISPRO 300 UNITS/3 ML VIAL SUBQ SCH (21:00)
[2021-09-29] MEDS ORDERED: Insulin DETEMIR 100 UNIT/ML X5UNITS SUBQ SCH (21:00)
[2021-09-30] MEDS: *HR* HYDROcodone/Acet 5/325 mg TABLET PO PRN ×2 (03:15→17:32)
[2021-09-30] MEDS: Norepinephrine 4 MG/254 ML IV.SOLN IVC SCH ×2 (05:03→08:58)
[2021-09-30] MEDS: Acetaminophen 325 MG TABLET PO PRN (05:04)
[2021-09-30] MEDS: MetroNIDAZOLE 500 MG/100 ML 500 MG/100 ML BAG IVPB SCH ×3 (05:04→17:33)
[2021-09-30 05:18] LABS: VBG Ionized Calcium 1.15 mmol/L (1.15-1.35)
[2021-09-30 05:45] LABS: Hematocrit 28.9 % (35.3-44.9); Hemoglobin 9.7 g/dL (11.5-15.4); Mean Corpuscular HGB Conc 33.6 g/dL (31.6-35.5); Mean Corpuscular Hemoglobin 30.1 pg (28.0-33.3); Mean Corpuscular Volume 89.8 fL (83.0-100.0); Mean Platelet Volume 12.1 fL (9.4-12.4); Platelet Count 121 K/mcL (140-400); Red Blood Count 3.22 M/mcL (3.82-4.97); Red Cell Distribution Width 14.9 % (11.5-14.5); White Blood Count 11.2 K/mcL (4.3-11.1)
[2021-09-30 06:09] LABS: Alanine Aminotransferase 10 Units/L (7-52); Albumin 2.9 g/dL (3.5-5.7); Albumin/Globulin Ratio 1.5 (1.1-2.2); Alkaline Phosphatase 40 Units/L (34-104); Aspartate Amino Transferase 16 Units/L (13-39); BUN/Creatinine Ratio 31 (6-26); Bilirubin,Direct 0.1 mg/dL (0.0-0.2); Bilirubin,Indirect 0.4 mg/dL (0.0-1.0); Bilirubin,Total 0.5 mg/dL (0.3-1.0); Blood Urea Nitrogen 32 mg/dL (8-23); Calcium 7.7 mg/dL (8.6-10.3); Carbon Dioxide 19 mEq/L (23-29); Chloride 113 mEq/L (98-107); Glucose 107 mg/dL (70-105); Magnesium 1.7 mg/dL (1.6-2.6); Osmolality,Calculated 299 (280-300); Phosphorous 3.4 mg/dL (2.7-4.5); Potassium 3.6 mEq/L (3.5-5.1); Sodium 141 mEq/L (136-145); Total Protein 4.9 g/dL (6.4-8.9); eGFR For African Americans > 60 (> 60); eGFR For Non-African Americans 54 (> 60)
[2021-09-30] MEDS: Potassium Chloride 40 MEQ/200 ML BAG IVPB PRN ×2 (06:46→08:51)
[2021-09-30 06:51] LABS: Lymphocytes # 3.4 K/mcL (0.6-4.6); Monocytes # 0.7 K/mcL (0.0-1.3); Neutrophils # 6.9 K/mcL (1.6-8.9); Platelet Estimate Normal (Normal)
[2021-09-30] MEDS: Insulin LISPRO 300 UNITS/3 ML VIAL SUBQ SCH ×4 (08:31→20:34)
[2021-09-30] MEDS: Aspirin Enteric Coated 81 MG Tablet PO SCH (08:50)
[2021-09-30] MEDS: cefTRIAXone 1,000 MG in Water for inj. (sterile) 10 ML IVP SCH (08:51)
[2021-09-30] MEDS ORDERED: Dextrose 4 GM Chewable Tablets PO PRN ×2 (14:48)
[2021-09-30] MEDS ORDERED: Naloxone 0.4 MG/ML INJ IVP PRN (14:48)
[2021-09-30] MEDS ORDERED: *HR* Dextrose 50 % in Water (Syg) 50 ML SYRINGE IVP PRN (14:48)
[2021-09-30] MEDS ORDERED: D5% in Water 1,000 ML IVC PRN (14:48)
[2021-09-30] MEDS ORDERED: Budesonide/Formoterol 160/4.5 1 PUFF INH IH PRN (14:48)
[2021-09-30] MEDS: *HR* Heparin 5,000 UNIT/ML VIAL SQ SCH (17:19)
[2021-09-30] MEDS: Melatonin 3 MG TABLET PO PRN (20:34)
[2021-09-30] MEDS: lamoTRIgine 25 MG TABLET PO SCH (20:34)
[2021-09-30] MEDS: Insulin DETEMIR 100 UNIT/ML X5UNITS SUBQ SCH (20:43)
[2021-09-30] MEDS ORDERED: *HR* Metoprolol 5 MG/5 ML VIAL IVP ONE (22:20)
[2021-09-30] MEDS ORDERED: 0.9 % Sodium Chloride 500 ML ONE (22:47)
[2021-09-30] MEDS ORDERED: *HR* Adenosine 6 MG/2 ML SYRINGE IVP ONE (23:00)
[2021-09-30] MEDS ORDERED: *HR* Adenosine 6 MG/2 ML VIAL IVP ONE (23:12)
[2021-09-30] MEDS ORDERED: 0.9 % Sodium Chloride 500 ML IVC ONE (23:14)
[2021-10-01] MEDS: MetroNIDAZOLE 500 MG/100 ML 500 MG/100 ML BAG IVPB SCH ×4 (00:45→16:37)
[2021-10-01] MEDS: *HR* HYDROcodone/Acet 5/325 mg TABLET PO PRN ×3 (01:38→16:59)
[2021-10-01 02:17] LABS: Basophils % 0.3 %; Eosinophils # 0.1 K/mcL (0.0-0.6); Eosinophils % 0.6 %; Hemoglobin 10.3 g/dL (11.5-15.4); Immature Granulocytes % 1.2 % (0-4); Immature Platelets 6.5 % (1.1-6.1); Lymphocytes % 16.8 %; Mean Corpuscular HGB Conc 33.2 g/dL (31.6-35.5); Mean Corpuscular Hemoglobin 29.9 pg (28.0-33.3); Mean Corpuscular Volume 90.1 fL (83.0-100.0); Mean Platelet Volume 12.1 fL (9.4-12.4); Monocytes % 8.1 %; Neutrophils # 8.9 K/mcL (1.6-8.9); Platelet Count 119 K/mcL (140-400); Red Blood Count 3.44 M/mcL (3.82-4.97); White Blood Count 12.2 K/mcL (4.3-11.1)
[2021-10-01 02:18] LABS: Lymphocytes # 2.1 K/mcL (0.6-4.6)
[2021-10-01 02:22] LABS: Alanine Aminotransferase 10 Units/L (7-52); Albumin 2.7 g/dL (3.5-5.7); Albumin/Globulin Ratio 1.4 (1.1-2.2); Alkaline Phosphatase 48 Units/L (34-104); Aspartate Amino Transferase 13 Units/L (13-39); Bilirubin,Direct 0.1 mg/dL (0.0-0.2); Bilirubin,Indirect 0.4 mg/dL (0.0-1.0); Bilirubin,Total 0.5 mg/dL (0.3-1.0); Blood Urea Nitrogen 22 mg/dL (8-23); Calcium 7.9 mg/dL (8.6-10.3); Carbon Dioxide 22 mEq/L (23-29); Chloride 115 mEq/L (98-107); Globulin 1.9 g/dL (2.4-3.5); Glucose 95 mg/dL (70-105); Magnesium 1.6 mg/dL (1.6-2.6); Osmolality,Calculated 297 (280-300); Phosphorous 1.9 mg/dL (2.7-4.5); Potassium 3.6 mEq/L (3.5-5.1); Sodium 142 mEq/L (136-145); Total Protein 4.6 g/dL (6.4-8.9)
[2021-10-01 03:16] LABS: BUN/Creatinine Ratio 31 (6-26); eGFR For African Americans > 60 (> 60); eGFR For Non-African Americans > 60 (> 60)
[2021-10-01] MEDS: *HR* Heparin 5,000 UNIT/ML VIAL SQ SCH ×2 (05:53→16:37)
[2021-10-01] MEDS: Insulin LISPRO 300 UNITS/3 ML VIAL SUBQ SCH ×4 (07:42→20:10)
[2021-10-01] MEDS: Ondansetron 4 MG/2 ML VIAL IVP PRN (07:56)
[2021-10-01] MEDS: Lactobacillus 1 EACH CAP.SPRINK PO SCH (08:00)
[2021-10-01] MEDS: lamoTRIgine 25 MG TABLET PO SCH ×2 (08:01→20:28)
[2021-10-01] MEDS: Aspirin Enteric Coated 81 MG Tablet PO SCH (08:01)
[2021-10-01] MEDS: cefTRIAXone 1,000 MG in 0.9 % Sodium Chloride 10 ML IVP SCH (08:02)
[2021-10-01] MEDS: Insulin DETEMIR 100 UNIT/ML X5UNITS SUBQ SCH ×2 (10:32→20:10)
[2021-10-01] MEDS ORDERED: Perflutren Lipid Microsphere 1.3 ML in 0.9 % Sodium Chloride 8.7 ML IVP PRN (11:36)
[2021-10-01] MEDS: Fluticasone Propionate Nasal 50 MCG/SPRAY BOTTLE NS SCH (20:26)
[2021-10-02] MEDS: *HR* HYDROcodone/Acet 5/325 mg TABLET PO PRN ×2 (00:12→20:38)
[2021-10-02] MEDS: MetroNIDAZOLE 500 MG/100 ML 500 MG/100 ML BAG IVPB SCH ×5 (00:12→23:51)
[2021-10-02 02:54] LABS: Basophils % 0.5 %; Eosinophils # 0.2 K/mcL (0.0-0.6); Eosinophils % 1.8 %; Hematocrit 32.6 % (35.3-44.9); Hemoglobin 10.8 g/dL (11.5-15.4); Immature Granulocytes % 0.8 % (0-4); Mean Corpuscular HGB Conc 33.1 g/dL (31.6-35.5); Mean Corpuscular Volume 90.6 fL (83.0-100.0); Monocytes # 0.9 K/mcL (0.0-1.3); Monocytes % 10.6 %; Neutrophils # 5.3 K/mcL (1.6-8.9); Platelet Count 118 K/mcL (140-400); Red Cell Distribution Width 14.6 % (11.5-14.5); Segmented Neutrophils % 62.3 %; White Blood Count 8.5 K/mcL (4.3-11.1)
[2021-10-02 03:15] LABS: Alanine Aminotransferase 8 Units/L (7-52); Albumin 2.8 g/dL (3.5-5.7); Albumin/Globulin Ratio 1.4 (1.1-2.2); Alkaline Phosphatase 52 Units/L (34-104); Aspartate Amino Transferase 14 Units/L (13-39); BUN/Creatinine Ratio 29 (6-26); Bilirubin,Direct 0.1 mg/dL (0.0-0.2); Bilirubin,Indirect 0.4 mg/dL (0.0-1.0); Bilirubin,Total 0.5 mg/dL (0.3-1.0); Blood Urea Nitrogen 16 mg/dL (8-23); Calcium 7.9 mg/dL (8.6-10.3); Carbon Dioxide 20 mEq/L (23-29); Chloride 114 mEq/L (98-107); Glucose 77 mg/dL (70-105); Magnesium 1.3 mg/dL (1.6-2.6); Osmolality,Calculated 294 (280-300); Phosphorous 2.1 mg/dL (2.7-4.5); Potassium 3.2 mEq/L (3.5-5.1); Sodium 142 mEq/L (136-145); Total Protein 4.8 g/dL (6.4-8.9); eGFR For African Americans > 60 (> 60); eGFR For Non-African Americans > 60 (> 60)
[2021-10-02] MEDS: *HR* Heparin 5,000 UNIT/ML VIAL SQ SCH ×2 (05:08→17:10)
[2021-10-02] MEDS ORDERED: Potassium Phosphate 44 MEQ in 0.9 % Sodium Chloride 250 ML IVPB ONE (06:59)
[2021-10-02] MEDS: Aspirin Enteric Coated 81 MG Tablet PO SCH (08:05)
[2021-10-02] MEDS: Lactobacillus 1 EACH CAP.SPRINK PO SCH (08:05)
[2021-10-02] MEDS: lisinopriL 20 MG TABLET PO SCH (08:05)
[2021-10-02] MEDS: lamoTRIgine 25 MG TABLET PO SCH ×2 (08:05→20:38)
[2021-10-02] MEDS: cefTRIAXone 1,000 MG in 0.9 % Sodium Chloride 10 ML IVP SCH (08:06)
[2021-10-02] MEDS: Insulin LISPRO 300 UNITS/3 ML VIAL SUBQ SCH ×4 (08:06→20:26)
[2021-10-02] MEDS: Potassium Chloride Elixir 20 MEQ/15 ML UDC PO ONE ×2 (08:07→08:42)
[2021-10-02] MEDS: Fluticasone Propionate Nasal 50 MCG/SPRAY BOTTLE NS SCH (08:07)
[2021-10-02] MEDS: Ondansetron 4 MG/2 ML VIAL IVP PRN ×2 (08:23→20:38)
[2021-10-02] MEDS: Insulin DETEMIR 100 UNIT/ML X5UNITS SUBQ SCH ×2 (10:35→20:26)
[2021-10-02] MEDS ORDERED: *HR* Promethazine 25 MG/ML VIAL IM ONE (13:30)
[2021-10-02] MEDS: Ringers Solution, Lactated 1,000 ML IVC SCH (16:56)
[2021-10-03] MEDS: Ondansetron 4 MG/2 ML VIAL IVP PRN ×2 (02:38→07:53)
[2021-10-03] MEDS: *HR* HYDROcodone/Acet 5/325 mg TABLET PO PRN ×3 (02:39→18:05)
[2021-10-03 03:30] LABS: Basophils # 0.1 K/mcL (0.0-0.2); Basophils % 0.6 %; Eosinophils # 0.1 K/mcL (0.0-0.6); Eosinophils % 0.8 %; Hematocrit 35.2 % (35.3-44.9); Hemoglobin 11.9 g/dL (11.5-15.4); Immature Granulocytes % 1.4 % (0-4); Lymphocytes # 2.9 K/mcL (0.6-4.6); Lymphocytes % 21.9 %; Mean Corpuscular HGB Conc 33.8 g/dL (31.6-35.5); Mean Corpuscular Hemoglobin 29.7 pg (28.0-33.3); Mean Corpuscular Volume 87.8 fL (83.0-100.0); Mean Platelet Volume 12.1 fL (9.4-12.4); Monocytes # 1.5 K/mcL (0.0-1.3); Monocytes % 11.3 %; Neutrophils # 8.4 K/mcL (1.6-8.9); Platelet Count 140 K/mcL (140-400); Red Blood Count 4.01 M/mcL (3.82-4.97); Red Cell Distribution Width 14.2 % (11.5-14.5)
[2021-10-03 03:32] LABS: White Blood Count 13.1 K/mcL (4.3-11.1)
[2021-10-03 03:50] LABS: Alanine Aminotransferase 9 Units/L (7-52); Albumin 2.6 g/dL (3.5-5.7); Albumin/Globulin Ratio 1.2 (1.1-2.2); Alkaline Phosphatase 63 Units/L (34-104); Aspartate Amino Transferase 14 Units/L (13-39); BUN/Creatinine Ratio 22 (6-26); Bilirubin,Total 0.5 mg/dL (0.3-1.0); Blood Urea Nitrogen 11 mg/dL (8-23); Calcium 7.4 mg/dL (8.6-10.3); Carbon Dioxide 17 mEq/L (23-29); Chloride 111 mEq/L (98-107); Globulin 2.1 g/dL (2.4-3.5); Glucose 98 mg/dL (70-105); Magnesium 1.2 mg/dL (1.6-2.6); Osmolality,Calculated 291 (280-300); Phosphorous 3.7 mg/dL (2.7-4.5); Potassium 3.5 mEq/L (3.5-5.1); Sodium 141 mEq/L (136-145); Total Protein 4.7 g/dL (6.4-8.9); eGFR For African Americans > 60 (> 60); eGFR For Non-African Americans > 60 (> 60)
[2021-10-03] MEDS: MetroNIDAZOLE 500 MG/100 ML 500 MG/100 ML BAG IVPB SCH ×4 (06:15→23:11)
[2021-10-03] MEDS: *HR* Heparin 5,000 UNIT/ML VIAL SQ SCH ×2 (06:15→17:52)
[2021-10-03] MEDS: lisinopriL 20 MG TABLET PO SCH (08:06)
[2021-10-03] MEDS: Insulin LISPRO 300 UNITS/3 ML VIAL SUBQ SCH ×4 (08:07→20:45)
[2021-10-03] MEDS: Lactobacillus 1 EACH CAP.SPRINK PO SCH (08:07)
[2021-10-03] MEDS: lamoTRIgine 25 MG TABLET PO SCH ×2 (08:07→20:52)
[2021-10-03] MEDS: Aspirin Enteric Coated 81 MG Tablet PO SCH (08:07)
[2021-10-03] MEDS: cefTRIAXone 1,000 MG in 0.9 % Sodium Chloride 10 ML IVP SCH (08:08)
[2021-10-03] MEDS: Insulin DETEMIR 100 UNIT/ML X5UNITS SUBQ SCH ×2 (08:08→20:45)
[2021-10-03] MEDS: Fluticasone Propionate Nasal 50 MCG/SPRAY BOTTLE NS SCH (08:08)
[2021-10-03] MEDS: Ringers Solution, Lactated 1,000 ML IVC SCH (11:26)
[2021-10-03] MEDS: *HR* Promethazine 25 MG/ML VIAL IM PRN (18:04)
[2021-10-03] MEDS: Nystatin POWDER 30 GM BOTTLE TP SCH (20:45)
[2021-10-04] MEDS: *HR* HYDROcodone/Acet 5/325 mg TABLET PO PRN ×4 (00:03→20:20)
[2021-10-04] MEDS: *HR* Promethazine 25 MG/ML VIAL IM PRN ×2 (02:10→10:46)
[2021-10-04 02:56] LABS: Alanine Aminotransferase 9 Units/L (7-52); Albumin 2.6 g/dL (3.5-5.7); Albumin/Globulin Ratio 1.1 (1.1-2.2); Alkaline Phosphatase 60 Units/L (34-104); Aspartate Amino Transferase 23 Units/L (13-39); BUN/Creatinine Ratio 19 (6-26); Bilirubin,Total 0.5 mg/dL (0.3-1.0); Blood Urea Nitrogen 10 mg/dL (8-23); Calcium 7.7 mg/dL (8.6-10.3); Carbon Dioxide 16 mEq/L (23-29); Chloride 111 mEq/L (98-107); Globulin 2.3 g/dL (2.4-3.5); Glucose 114 mg/dL (70-105); Magnesium 1.5 mg/dL (1.6-2.6); Osmolality,Calculated 296 (280-300); Phosphorous 3.4 mg/dL (2.7-4.5); Potassium 4.3 mEq/L (3.5-5.1); Sodium 143 mEq/L (136-145); Total Protein 4.9 g/dL (6.4-8.9); eGFR For African Americans > 60 (> 60); eGFR For Non-African Americans > 60 (> 60)
[2021-10-04] MEDS: MetroNIDAZOLE 500 MG/100 ML 500 MG/100 ML BAG IVPB SCH ×3 (05:36→20:20)
[2021-10-04] MEDS: *HR* Heparin 5,000 UNIT/ML VIAL SQ SCH ×2 (06:06→16:31)
[2021-10-04] MEDS: Insulin LISPRO 300 UNITS/3 ML VIAL SUBQ SCH ×4 (09:04→20:04)
[2021-10-04] MEDS: Insulin DETEMIR 100 UNIT/ML X5UNITS SUBQ SCH (09:04)
[2021-10-04] MEDS: Aspirin Enteric Coated 81 MG Tablet PO SCH (09:06)
[2021-10-04] MEDS: cefTRIAXone 1,000 MG in 0.9 % Sodium Chloride 10 ML IVP SCH (09:06)
[2021-10-04] MEDS: lamoTRIgine 25 MG TABLET PO SCH ×2 (09:07→20:20)
[2021-10-04] MEDS: lisinopriL 20 MG TABLET PO SCH (09:07)
[2021-10-04] MEDS: Nystatin POWDER 30 GM BOTTLE TP SCH ×3 (09:07→20:20)
[2021-10-04] MEDS: Fluticasone Propionate Nasal 50 MCG/SPRAY BOTTLE NS SCH (09:07)
[2021-10-04] MEDS: Lactobacillus 1 EACH CAP.SPRINK PO SCH (09:07)
[2021-10-04 09:56] LABS: Basophils # 0.1 K/mcL (0.0-0.2); Eosinophils # 0.1 K/mcL (0.0-0.6); Hemoglobin 11.3 g/dL (11.5-15.4); Mean Corpuscular HGB Conc 33.2 g/dL (31.6-35.5); Mean Corpuscular Hemoglobin 29.6 pg (28.0-33.3); Mean Platelet Volume 11.3 fL (9.4-12.4); Platelet Count 162 K/mcL (140-400); Red Blood Count 3.82 M/mcL (3.82-4.97); Red Cell Distribution Width 14.5 % (11.5-14.5); White Blood Count 12.1 K/mcL (4.3-11.1)
[2021-10-04 10:37] LABS: Anisocytosis 1+ (Not Present); Lymphocytes # 2.2 K/mcL (0.6-4.6); Monocytes # 0.9 K/mcL (0.0-1.3); Neutrophils # 8.6 K/mcL (1.6-8.9); Platelet Estimate Normal (Normal); Reactive Lymphocytes Present (Not Present)
[2021-10-04] MEDS: Acetaminophen 325 MG TABLET PO PRN (10:42)
[2021-10-04] MEDS ORDERED: Ondansetron 4 MG/2 ML VIAL IVP PRN (10:57)
[2021-10-04] MEDS: amLODIPine 5 MG TABLET PO SCH (15:02)
[2021-10-04] MEDS: Melatonin 3 MG TABLET PO PRN (20:20)
[2021-10-04] MEDS: Pregabalin 50 MG CAPSULE PO SCH (20:20)
[2021-10-05] MEDS: *HR* Promethazine 25 MG/ML VIAL IM PRN (00:04)
[2021-10-05 02:08] LABS: Basophils # 0.2 K/mcL (0.0-0.2); Basophils % 1.3 %; Eosinophils # 0.1 K/mcL (0.0-0.6); Eosinophils % 1.1 %; Hematocrit 33.9 % (35.3-44.9); Hemoglobin 11.5 g/dL (11.5-15.4); Immature Granulocytes % 5.2 % (0-4); Lymphocytes # 2.8 K/mcL (0.6-4.6); Lymphocytes % 22.6 %; Mean Corpuscular HGB Conc 33.9 g/dL (31.6-35.5); Mean Corpuscular Hemoglobin 29.9 pg (28.0-33.3); Mean Corpuscular Volume 88.3 fL (83.0-100.0); Mean Platelet Volume 12.2 fL (9.4-12.4); Monocytes # 1.8 K/mcL (0.0-1.3); Monocytes % 14.5 %; Neutrophils # 6.9 K/mcL (1.6-8.9); Nucleated Red Blood Cells 0.2 /100 WBC (0); Platelet Count 170 K/mcL (140-400); Red Blood Count 3.84 M/mcL (3.82-4.97); Red Cell Distribution Width 14.5 % (11.5-14.5); Segmented Neutrophils % 55.3 %; White Blood Count 12.4 K/mcL (4.3-11.1)
[2021-10-05 02:56] LABS: Platelet Estimate Normal (Normal); Reactive Lymphocytes Present (Not Present)
[2021-10-05] MEDS: *HR* HYDROcodone/Acet 5/325 mg TABLET PO PRN ×3 (03:21→19:38)
[2021-10-05] MEDS: MetroNIDAZOLE 500 MG/100 ML 500 MG/100 ML BAG IVPB SCH ×3 (03:21→19:38)
[2021-10-05] MEDS: *HR* Heparin 5,000 UNIT/ML VIAL SQ SCH ×3 (04:55→21:12)
[2021-10-05 07:58] LABS: Alanine Aminotransferase 8 Units/L (7-52); Albumin 2.6 g/dL (3.5-5.7); Albumin/Globulin Ratio 1.1 (1.1-2.2); Alkaline Phosphatase 55 Units/L (34-104); Aspartate Amino Transferase 20 Units/L (13-39); BUN/Creatinine Ratio 17 (6-26); Bilirubin,Total 0.4 mg/dL (0.3-1.0); Blood Urea Nitrogen 8 mg/dL (8-23); Calcium 7.6 mg/dL (8.6-10.3); Carbon Dioxide 17 mEq/L (23-29); Chloride 112 mEq/L (98-107); Globulin 2.4 g/dL (2.4-3.5); Glucose 110 mg/dL (70-105); Magnesium 1.5 mg/dL (1.6-2.6); Osmolality,Calculated 291 (280-300); Phosphorous 3.8 mg/dL (2.7-4.5); Potassium 3.8 mEq/L (3.5-5.1); Sodium 141 mEq/L (136-145); eGFR For African Americans > 60 (> 60); eGFR For Non-African Americans > 60 (> 60)
[2021-10-05] MEDS: Insulin LISPRO 300 UNITS/3 ML VIAL SUBQ SCH ×4 (08:16→21:13)
[2021-10-05] MEDS: lisinopriL 20 MG TABLET PO SCH (08:23)
[2021-10-05] MEDS: amLODIPine 5 MG TABLET PO SCH (08:23)
[2021-10-05] MEDS: Aspirin Enteric Coated 81 MG Tablet PO SCH (08:23)
[2021-10-05] MEDS: lamoTRIgine 25 MG TABLET PO SCH ×2 (08:23→21:12)
[2021-10-05] MEDS: Lactobacillus 1 EACH CAP.SPRINK PO SCH (08:23)
[2021-10-05] MEDS: Pregabalin 50 MG CAPSULE PO SCH ×2 (08:23→21:12)
[2021-10-05] MEDS: Fluticasone Propionate Nasal 50 MCG/SPRAY BOTTLE NS SCH (08:24)
[2021-10-05] MEDS: cefTRIAXone 1,000 MG in 0.9 % Sodium Chloride 10 ML IVP SCH (08:24)
[2021-10-05] MEDS: Nystatin POWDER 30 GM BOTTLE TP SCH ×3 (08:24→21:13)
[2021-10-05] MEDS: Acetaminophen 325 MG TABLET PO PRN ×2 (08:30→17:17)
[2021-10-05] MEDS: Magnesium Oxide 400 MG TABLET PO SCH ×2 (15:44→21:12)
[2021-10-06] MEDS: *HR* HYDROcodone/Acet 5/325 mg TABLET PO PRN ×2 (03:12→08:14)
[2021-10-06 03:42] LABS: Basophils # 0.2 K/mcL (0.0-0.2); Basophils % 1.2 %; Eosinophils # 0.1 K/mcL (0.0-0.6); Eosinophils % 0.8 %; Hematocrit 31.7 % (35.3-44.9); Hemoglobin 10.1 g/dL (11.5-15.4); Immature Granulocytes % 3.6 % (0-4); Lymphocytes % 23.1 %; Mean Corpuscular HGB Conc 31.9 g/dL (31.6-35.5); Mean Corpuscular Hemoglobin 29.1 pg (28.0-33.3); Mean Corpuscular Volume 91.4 fL (83.0-100.0); Mean Platelet Volume 11.9 fL (9.4-12.4); Monocytes # 1.7 K/mcL (0.0-1.3); Monocytes % 13.2 %; Neutrophils # 7.6 K/mcL (1.6-8.9); Nucleated Red Blood Cells 0.2 /100 WBC (0); Platelet Count 204 K/mcL (140-400); Red Blood Count 3.47 M/mcL (3.82-4.97); Red Cell Distribution Width 14.8 % (11.5-14.5); Segmented Neutrophils % 58.1 %
[2021-10-06 04:07] LABS: Large Platelets Present (Not Present); Platelet Estimate Normal (Normal)
[2021-10-06 04:09] LABS: Alanine Aminotransferase 6 Units/L (7-52); Albumin 2.7 g/dL (3.5-5.7); Albumin/Globulin Ratio 1.2 (1.1-2.2); Alkaline Phosphatase 61 Units/L (34-104); Aspartate Amino Transferase 18 Units/L (13-39); BUN/Creatinine Ratio 17 (6-26); Bilirubin,Total 0.3 mg/dL (0.3-1.0); Blood Urea Nitrogen 10 mg/dL (8-23); Calcium 7.8 mg/dL (8.6-10.3); Carbon Dioxide 20 mEq/L (23-29); Chloride 108 mEq/L (98-107); Globulin 2.3 g/dL (2.4-3.5); Glucose 212 mg/dL (70-105); Magnesium 1.4 mg/dL (1.6-2.6); Osmolality,Calculated 293 (280-300); Potassium 3.2 mEq/L (3.5-5.1); Sodium 139 mEq/L (136-145); eGFR For African Americans > 60 (> 60); eGFR For Non-African Americans > 60 (> 60)
[2021-10-06] MEDS: *HR* Heparin 5,000 UNIT/ML VIAL SQ SCH ×3 (04:55→20:56)
[2021-10-06] MEDS: MetroNIDAZOLE 500 MG/100 ML 500 MG/100 ML BAG IVPB SCH ×3 (04:56→20:57)
[2021-10-06] MEDS ORDERED: Magnesium Oxide 400 MG TABLET PO ONE (07:08)
[2021-10-06] MEDS: Aspirin Enteric Coated 81 MG Tablet PO SCH (08:14)
[2021-10-06] MEDS: amLODIPine 5 MG TABLET PO SCH (08:14)
[2021-10-06] MEDS: lisinopriL 20 MG TABLET PO SCH (08:14)
[2021-10-06] MEDS: Magnesium Oxide 400 MG TABLET PO SCH ×2 (08:14→20:56)
[2021-10-06] MEDS: Pregabalin 50 MG CAPSULE PO SCH ×2 (08:15→20:56)
[2021-10-06] MEDS: Lactobacillus 1 EACH CAP.SPRINK PO SCH (08:15)
[2021-10-06] MEDS: cefTRIAXone 1,000 MG in 0.9 % Sodium Chloride 10 ML IVP SCH (08:16)
[2021-10-06] MEDS: Insulin LISPRO 300 UNITS/3 ML VIAL SUBQ SCH ×4 (08:17→21:06)
[2021-10-06] MEDS: Fluticasone Propionate Nasal 50 MCG/SPRAY BOTTLE NS SCH (08:17)
[2021-10-06] MEDS: Nystatin POWDER 30 GM BOTTLE TP SCH ×3 (08:17→20:59)
[2021-10-06] MEDS: lamoTRIgine 25 MG TABLET PO SCH ×2 (08:37→20:56)
[2021-10-06] MEDS: Acetaminophen 325 MG TABLET PO PRN ×2 (12:41→20:59)
[2021-10-06 13:31] LABS: Adenovirus F 40/41 PCR Not detected (Not detect); Astrovirus PCR Not detected (Not detect); C.difficile Toxin A/B Gene PCR Not detected (Not detect); Campylobacter by PCR Not detected (Not detect); Cryptosporidium by PCR Not detected (Not detect); Cyclospora cayetanensis PCR Not detected (Not detect); E. coli O157 by PCR Not detected (Not detect); Entamoeba histolytica PCR Not detected (Not detect); Enteroaggregative E.coli(EAEC) Not detected (Not detect); Enteropathogenic E.coli(EPEC) Not detected (Not detect); Enterotoxigenic E.coli (ETEC) Not detected (Not detect); Giardia lamblia PCR Not detected (Not detect); Norovirus GI/GII PCR Not detected (Not detect); Plesiomonas shigelloides PCR Not detected (Not detect); Rotavirus A PCR Not detected (Not detect); Salmonella PCR Not detected (Not detect); Sapovirus PCR Not detected (Not detect); Shig/EnteroinvasiveE coli EIEC Not detected (Not detect); Shigalike tox-prod E coli STEC Not detected (Not detect); Vibrio PCR Not detected (Not detect); Vibrio cholerae PCR Not detected (Not detect); Yersinia enterocolitica PCR Not detected (Not detect)
[2021-10-06] MEDS: *HR* HYDROcodone/Acet 10/325 mg TABLET PO PRN ×2 (15:56→22:16)
[2021-10-07 02:54] LABS: Hematocrit 30.2 % (35.3-44.9); Hemoglobin 9.8 g/dL (11.5-15.4); Mean Corpuscular HGB Conc 32.5 g/dL (31.6-35.5); Mean Corpuscular Hemoglobin 29.1 pg (28.0-33.3); Mean Corpuscular Volume 89.6 fL (83.0-100.0); Mean Platelet Volume 11.5 fL (9.4-12.4); Platelet Count 262 K/mcL (140-400); Red Blood Count 3.37 M/mcL (3.82-4.97); Red Cell Distribution Width 15.1 % (11.5-14.5); White Blood Count 15.6 K/mcL (4.3-11.1)
[2021-10-07 03:15] LABS: BUN/Creatinine Ratio 22 (6-26); Blood Urea Nitrogen 17 mg/dL (8-23); Calcium 7.8 mg/dL (8.6-10.3); Carbon Dioxide 21 mEq/L (23-29); Chloride 109 mEq/L (98-107); Glucose 175 mg/dL (70-105); Osmolality,Calculated 294 (280-300); Potassium 3.5 mEq/L (3.5-5.1); Sodium 139 mEq/L (136-145); eGFR For African Americans > 60 (> 60); eGFR For Non-African Americans > 60 (> 60)
[2021-10-07] MEDS: MetroNIDAZOLE 500 MG/100 ML 500 MG/100 ML BAG IVPB SCH ×3 (04:36→21:14)
[2021-10-07] MEDS: *HR* Heparin 5,000 UNIT/ML VIAL SQ SCH ×3 (04:36→21:57)
[2021-10-07] MEDS: *HR* HYDROcodone/Acet 10/325 mg TABLET PO PRN ×3 (04:43→17:55)
[2021-10-07] MEDS: amLODIPine 5 MG TABLET PO SCH (07:44)
[2021-10-07] MEDS: lamoTRIgine 25 MG TABLET PO SCH ×2 (07:44→21:56)
[2021-10-07] MEDS: lisinopriL 20 MG TABLET PO SCH (07:44)
[2021-10-07] MEDS: cefTRIAXone 1,000 MG in 0.9 % Sodium Chloride 10 ML IVP SCH (07:44)
[2021-10-07] MEDS: Aspirin Enteric Coated 81 MG Tablet PO SCH (07:44)
[2021-10-07] MEDS: Lactobacillus 1 EACH CAP.SPRINK PO SCH (07:44)
[2021-10-07] MEDS: Acetaminophen 325 MG TABLET PO PRN ×3 (07:44→21:56)
[2021-10-07] MEDS: Magnesium Oxide 400 MG TABLET PO SCH ×2 (07:44→21:56)
[2021-10-07] MEDS: Pregabalin 50 MG CAPSULE PO SCH ×2 (07:44→21:56)
[2021-10-07] MEDS: Insulin LISPRO 300 UNITS/3 ML VIAL SUBQ SCH ×4 (07:45→21:55)
[2021-10-07] MEDS: Fluticasone Propionate Nasal 50 MCG/SPRAY BOTTLE NS SCH (07:45)
[2021-10-07] MEDS: Nystatin POWDER 30 GM BOTTLE TP SCH ×3 (07:46→21:57)
[2021-10-07] MEDS ORDERED: Mag Hydrox/Al Hydrox/Simeth 30 ML UDC PO PRN (14:58)
[2021-10-08] MEDS: *HR* HYDROcodone/Acet 10/325 mg TABLET PO PRN ×3 (01:49→15:41)
[2021-10-08] MEDS: Melatonin 3 MG TABLET PO PRN (01:50)
[2021-10-08] MEDS: MetroNIDAZOLE 500 MG/100 ML 500 MG/100 ML BAG IVPB SCH ×2 (04:40→11:15)
[2021-10-08] MEDS: *HR* Heparin 5,000 UNIT/ML VIAL SQ SCH ×2 (04:40→14:06)
[2021-10-08 05:34] LABS: Hematocrit 26.5 % (35.3-44.9); Hemoglobin 8.4 g/dL (11.5-15.4); Mean Corpuscular HGB Conc 31.7 g/dL (31.6-35.5); Mean Corpuscular Hemoglobin 28.8 pg (28.0-33.3); Mean Corpuscular Volume 90.8 fL (83.0-100.0); Mean Platelet Volume 11.2 fL (9.4-12.4); Platelet Count 273 K/mcL (140-400); Red Blood Count 2.92 M/mcL (3.82-4.97); Red Cell Distribution Width 15.2 % (11.5-14.5); White Blood Count 11.2 K/mcL (4.3-11.1)
[2021-10-08 05:41] LABS: BUN/Creatinine Ratio 32 (6-26); Blood Urea Nitrogen 21 mg/dL (8-23); Calcium 7.3 mg/dL (8.6-10.3); Carbon Dioxide 22 mEq/L (23-29); Chloride 109 mEq/L (98-107); Glucose 225 mg/dL (70-105); Osmolality,Calculated 298 (280-300); Sodium 139 mEq/L (136-145); eGFR For African Americans > 60 (> 60); eGFR For Non-African Americans > 60 (> 60)
[2021-10-08 06:04] LABS: Influenza A PCR Negative (Negative); Influenza B PCR Negative (Negative); Resp. Syncytial Virus PCR Negative (Negative)
[2021-10-08 06:06] LABS: SARS-CoV-2 by PCR (In House) Negative (Negative)
[2021-10-08 06:34] VITALS: TEMP 97.9
[2021-10-08] MEDS: cefTRIAXone 1,000 MG in 0.9 % Sodium Chloride 10 ML IVP SCH (07:28)
[2021-10-08] MEDS: Insulin LISPRO 300 UNITS/3 ML VIAL SUBQ SCH ×3 (07:29→15:45)
[2021-10-08] MEDS: Pregabalin 50 MG CAPSULE PO SCH (07:30)
[2021-10-08] MEDS: Aspirin Enteric Coated 81 MG Tablet PO SCH (07:30)
[2021-10-08] MEDS: Lactobacillus 1 EACH CAP.SPRINK PO SCH (07:30)
[2021-10-08] MEDS: lisinopriL 20 MG TABLET PO SCH (07:30)
[2021-10-08] MEDS: Magnesium Oxide 400 MG TABLET PO SCH (07:30)
[2021-10-08] MEDS: amLODIPine 5 MG TABLET PO SCH (07:30)
[2021-10-08] MEDS: lamoTRIgine 25 MG TABLET PO SCH (07:31)
[2021-10-08] MEDS: Nystatin POWDER 30 GM BOTTLE TP SCH ×2 (07:31→14:06)
[2021-10-08] MEDS: Fluticasone Propionate Nasal 50 MCG/SPRAY BOTTLE NS SCH (07:31)
[2021-10-08 09:46] VITALS: BP 122/54; PULSE 86; O2SAT 100
== END 2021-10-08 15:55 | DRG 871 ==
LOC: EMEROOARM 20:38 → 2NENU 20:38 → SUATTDRO 09-29 01:40 → 2NENU 09-29 02:45 → SUATTDRO 09-29 09:32 → ICNU 09-29 11:23 → 2NENU 09-30 12:14
PROVIDERS: ADMIT Internal Medicine; ATTEND Family Medicine